=== PATIENT | male | born 1975 | race American Indian/Alaskan Native ===

== ENCOUNTER 2020-01-27 08:21 | Observation (INO) | payer MEDICAID ==
--- NOTE | 2020-01-27 09:06 | XRay Report ---
LEFT FOOT 3 VIEWS INDICATION: wound and pain to left foot. COMPARISON: None. IMPRESSION: There is been previous surgery involving the distal first and second metatarsals, correl ate with history. There is normal bone mineralization. No fracture, bone lesion, periostitis or bony destruction is identified. No significant joint pathology. Small plantar spur is noted. The soft tis sues are unremarkable. Signer Name: Kushal Morrison Jr, MD Signed: 01/27/2020 9:02 AM Workstation Name: [id number]
[2020-01-27 09:14] LABS: Hematocrit 38.3 % (35.5-45.6); Hemoglobin 12.1 gm/dl (11.8-15.2); Mean Corpuscular HGB Conc 32 % (32-34); Mean Corpuscular Volume 91 fl (84-94); Platelet Count 389 K/mm3 (140-440); Red Blood Count 4.23 M/mm3 (3.65-5.03); Red Cell Distribution Width 14.5 % (13.2-15.2)
[2020-01-27 09:34] LABS: Erythrocyte Sedimentation Rate 26 mm/Hr (0-20)
[2020-01-27 09:36] LABS: Alanine Aminotransferase 122 units/L (7-56); BUN/Creatinine Ratio 10; Blood Urea Nitrogen 12 mg/dL (9-20); Calcium 10.3 mg/dL (8.4-10.2); Hemolysis Index 4
[2020-01-27] MEDS ORDERED: SODIUM CHLORIDE 0.9% 1000 ML 1,000 ML IV ONE (10:57)
--- NOTE | 2020-01-27 11:01 | Emergency Department Report ---
HPI - General Chief Complaint: Extremity Injury, Lower Time Seen by Provider: 01/27/20 10:45 - HPI HPI: Room 23 The patient is a 44-year-old male present with a chief complaint of pain and bleeding from his left foot. The patient states she has had an ulceration under his left great toe for approximately 1 year and 1 between his small toe and fourth toe for approximately 6 months. The patient states that 1 time a inside sales specialist gave him a "cream" but it did not help. Patient states the pain has been worsening over the past 1 to 2 months. Patient states she noticed bleeding intermittently over the past month and occasionally pus coming from the wound. Patient denies history of fever. ED Past Medical Hx - Past Medical History Previous Medical History?: Yes Hx Hypertension: Yes Hx Diabetes: Yes Additional medical history: chronic back pain - Surgical History Past Surgical History?: Yes Additional Surgical History: left foot (patient states the bunion was removed and 1 of the bones in his foot had to be shaved but he is uncertain of the diagnosis) - Family History Family history: no significant - Social History Smoking Status: Never Smoker Substance Use Type: None (Denies illicit drug use), Alcohol (1-2 drinks daily) - Medications Home Medications: Home Medications Medication Instructions Recorded Confirmed Last Taken Type traMADoL [Ultram 50 MG tab] 50 mg PO Q6HR PRN #20 tablet 10/30/15 Unknown Rx ED Review of Systems ROS: Stated complaint: SORE ON FOOT/DIABETIC Other details as noted in HPI Constitutional: denies: fever Eyes: denies: eye pain Respiratory: no symptoms reported Cardiovascular: denies: chest pain Endocrine: no symptoms reported Gastrointestinal: denies: abdominal pain Musculoskeletal: myalgia Skin: lesions Neurological: denies: headache Physical Exam - Physical Exam Vital Signs: Vital Signs 01/27/20 08:25 Temperature 97.8 F Pulse Rate 120 H Respiratory 18 Rate Blood Pressure 156/89 O2 Sat by Pulse 98 Oximetry Physical Exam: GENERAL: The patient is well-developed well-nourished male lying on stretcher not appearing to be in acute distress. [] HEENT: Normocephalic. Atraumatic. Extraocular motions are intact. Patient has moist mucous membranes. NECK: Supple. Trachea midline CHEST/LUNGS: Clear to auscultation. There is no respiratory distress noted. HEART/CARDIOVASCULAR: Regular. There is no tachycardia. There is no gallop rub or murmur. ABDOMEN: Abdomen is soft, nontender. Patient has normal bowel sounds. There is no abdominal distention. SKIN: There is a deep fissure between the small and fourth toe of the left foot. No active drainage appreciated. Foot is tender in this and surrounding area. There is a fissure underneath the left great toe. There is no edema. There is no diaphoresis. NEURO: The patient is awake, alert, and oriented. The patient is cooperative. The patient has normal speech MUSCULOSKELETAL: here is no tenderness or deformity. There is no limitation range of motion. There is no evidence of acute injury. ED Course Vital Signs 01/27/20 08:25 Temperature 97.8 F Pulse Rate 120 H Respiratory 18 Rate Blood Pressure 156/89 O2 Sat by Pulse 98 Oximetry ED Medical Decision Making - Lab Data Result diagrams: 01/27/20 08:49 01/27/20 08:49 Laboratory Tests 01/27/20 01/27/20 01/27/20 08:41 08:49 08:49 WBC 6.4 RBC 4.23 Hgb 12.1 Hct 38.3 MCV 91 MCH 29 MCHC 32 RDW 14.5 Plt Count 389 ESR 26 Sodium 136 L Potassium 4.8 Chloride 96.8 L Carbon Dioxide 18 L Anion Gap 26 BUN 12 Creatinine 1.2 Estimated GFR > 60 BUN/Creatinine Ratio 10 Glucose 254 H POC Glucose 234 H Lactic Acid Calcium 10.3 H Total Bilirubin 0.30 AST 136 H ALT 122 H Alkaline Phosphatase 118 Total Protein 8.6 H Albumin 5.0 Albumin/Globulin Ratio 1.4 01/27/20 01/27/20 08:49 10:04 WBC RBC Hgb Hct MCV MCH MCHC RDW Plt Count ESR Sodium Potassium Chloride Carbon Dioxide Anion Gap BUN Creatinine Estimated GFR BUN/Creatinine Ratio Glucose POC Glucose Lactic Acid 4.70 H* 5.40 H* Calcium Total Bilirubin AST ALT Alkaline Phosphatase Total Protein Albumin Albumin/Globulin Ratio - Radiology Data Radiology results: report reviewed (Left foot x-ray), image reviewed (Left foot x-ray) interpreted by me: Left foot x-ray-no acute fracture seen. Findings [facility] [address] [place] [address] XRay Report Signed Patient: MEL PLEITEZ MR#: [id number] : 1975 Acct:[id number] Age/Sex: 44 / M ADM Date: 01/27/20 Loc: ED Attending Dr: Ordering Physician: MEGHAN BIRD Date of Service: 01/27/20 Procedure(s): XR foot 3+V LT Accession Number(s): [id number] cc: MEGHAN BIRD Fluoro Time In Minutes: LEFT FOOT 3 VIEWS INDICATION: wound and pain to left foot. COMPARISON: None. IMPRESSION: There is been previous surgery involving the distal first and second metatarsals, correlate with history. There is normal bone mineralization. No fracture, bone lesion, periostitis or bony destruction is identified. No significant joint pathology. Small plantar spur is noted. The soft tissues are unremarkable. Signer Name: Kushal Morrison Jr, MD Signed: 01/27/2020 9:02 AM Workstation Name: [id number] Transcribed By: TTR Dictated By: KUSHAL MORRISON JR, MD Electronically Authenticated By: KUSHAL MORRISON JR, MD Signed Date/Time: 01/27/20901 DD/ 0 TD/TT: - Differential Diagnosis Diabetic foot infection, Critical care attestation.: If time is entered above; I have spent that time in minutes in the direct care of this critically ill patient, excluding procedure time. ED Disposition Clinical Impression: Diabetic infection of left foot Disposition: OP ADMIT IP TO THIS HOSP Is pt being admited?: Yes Does the pt Need Aspirin: No Condition: Fair Instructions: Diabetes Mellitus Type 2 in Adults (ED) Referrals: PRIMARY CARE, [Primary Care Provider] - 3-5 Days Time of Disposition: 11:05 (Hospitalist paged)
[2020-01-27] MEDS ORDERED: PIPERACIL/TAZOBACTA 4.5/NS 100 4.5 GM/100 ML VIAL IV ONE (11:04)
[2020-01-27] MEDS ORDERED: MORPHINE 2 MG/1 ML INJ IV PRN (11:39)
[2020-01-27] MEDS ORDERED: ACETAMINOPHEN 325 MG TAB PO PRN (11:39)
[2020-01-27] MEDS ORDERED: IBUPROFEN 600 MG TAB PO PRN (11:39)
[2020-01-27] MEDS ORDERED: DEXTROSE 50% IN WATER (25GM) 50 ML SYRINGE IV PRN (11:39)
[2020-01-27] MEDS ORDERED: ONDANSETRON 4 MG/2 ML INJ IV PRN (11:39)
[2020-01-27] MEDS ORDERED: FLUCONAZOLE 200 MG 200 MG/100 ML BAG IV SCH (12:00)
[2020-01-27] MEDS ORDERED: amLODIPine 10 MG TAB PO SCH (12:00)
[2020-01-27] MEDS ORDERED: INSULIN LISPRO 100 UNIT/ML SUB-Q ONE (12:07)
[2020-01-27] MEDS: INSULIN LISPRO 100 UNIT/ML SUB-Q SCH ×3 (12:07→22:03)
[2020-01-27] MEDS ORDERED: amLODIPine 10 MG TAB ONE (13:32)
--- NOTE | 2020-01-27 14:45 | History and Physical Report ---
History of Present Illness Date of examination: 01/27/20 Date of admission: 01/27/20 11:11 Chief complaint: LEFT FOOT PAIN History of present illness: Patient is a 44-year-old male with past medical history of DM, HTN, HYPERLIPIDEMIA, Depression who presents to the ER with complaint of left foot pain. Per the patient he has an ulceration under the great toe and also in between the fourth and fifth toe which has been ongoing for about 1 month and 6- month respectively although when pressed he is reported that is been ongoing for about a year intermittently would bleed and sometimes it would turn red. He was seen by a second shift supervisor about 2 months ago and was given some cream but reported that it was not improving and is beginning to notice pain and occasional pus coming from the wound. He denies any fever nausea vomiting. He reports past surgical history in the left foot when he had a bunion removed and a bone shaved at that time. He does endorse to alcohol use 1-2 drinks every other day and denies any history of withdrawal symptoms. GENERAL: The patient is well-developed well-nourished male lying on stretcher not appearing to be in acute distress. [] HEENT: Normocephalic. Atraumatic. Extraocular motions are intact. Patient has moist mucous membranes. NECK: Supple. Trachea midline CHEST/LUNGS: Clear to auscultation. There is no respiratory distress noted. HEART/CARDIOVASCULAR: Regular. There is no tachycardia. There is no gallop rub or murmur. ABDOMEN: Abdomen is soft, nontender. Patient has normal bowel sounds. There is no abdominal distention. SKIN: There is a deep fissure between the small and fourth toe of the left foot. No active drainage appreciated. Foot is tender in this and surrounding area. There is a fissure underneath the left great toe. There is no edema. There is no diaphoresis. NEURO: The patient is awake, alert, and oriented. The patient is cooperative. The patient has normal speech MUSCULOSKELETAL: here is no tenderness or deformity. There is no limitation range of motion. There is no evidence of acute injury. Past History Past Medical History: diabetes, hypertension, hyperlipidemia, other (Depression) Past Surgical History: Other (Bunion surgery) Social history: alcohol abuse, full code Family history: no significant family history Medications and Allergies Allergies Allergy/AdvReac Type Severity Reaction Status Date / Time No Known Allergies Allergy Unverified 10/30/15 11:38 Home Medications Medication Instructions Recorded Confirmed Last Taken Type traMADoL [Ultram 50 MG tab] 50 mg PO Q6HR PRN #20 tablet 10/30/15 01/27/20 Unknown Rx Amitriptyline [Elavil] 50 mg PO QHS 01/27/20 01/27/20 Unknown History Ammonium Lactate [Lac-Hydrin 1 applicatio TP BID 01/27/20 01/27/20 Unknown History Lotion] Escitalopram Oxalate [Lexapro] 20 mg PO DAILY 01/27/20 01/27/20 Unknown History Fluticasone [Flonase] 50 mcg IH DAILY 01/27/20 01/27/20 Unknown History Gabapentin 400 mg PO TID 01/27/20 01/27/20 Unknown History Insulin NPH Hum/Reg Insulin Hm 40 unit SQ QAM 01/27/20 01/27/20 Unknown History [HumuLIN 70-30 Vial] Insulin NPH Hum/Reg Insulin Hm 50 unit SQ QHS 01/27/20 01/27/20 Unknown History [Humulin 70-30 Vial] Ketoconazole 2% [Nizoral] 15 gm TP DAILY 01/27/20 01/27/20 Unknown History Loratadine (Nf) 10 mg PO DAILY 01/27/20 01/27/20 Unknown History Meloxicam [Mobic] 15 mg PO DAILY 01/27/20 01/27/20 Unknown History Metformin HCl [metFORMIN] 1,000 mg PO BID 01/27/20 01/27/20 Unknown History Mirtazapine [Remeron 45mg TAB] 45 mg PO QHS 01/27/20 01/27/20 Unknown History Omeprazole 20 mg PO BID 01/27/20 01/27/20 Unknown History amLODIPine [Norvasc] 10 mg PO DAILY 01/27/20 01/27/20 Unknown History cloNIDine [Catapres] 0.2 mg PO BID 01/27/20 01/27/20 Unknown History lisinopriL [Zestril TAB] 40 mg PO QDAY 01/27/20 01/27/20 Unknown History risperiDONE [RisperDAL] 1 mg PO QHS 01/27/20 01/27/20 Unknown History risperiDONE [risperiDONE ODT] 0.5 mg PO QAM 01/27/20 01/27/20 Unknown History traMADoL [Ultram] 50 mg PO Q6HR PRN 01/27/20 01/27/20 Unknown History traZODone [Desyrel] 100 mg PO QHS 01/27/20 01/27/20 Unknown History Active Meds: Active Medications Acetaminophen (Tylenol) 650 mg PO Q4H PRN PRN Reason: Pain MILD(1-3)/Fever >100.5/ARIAS Amlodipine Besylate (Amlodipine) 10 mg PO QDAY [facility] Last Admin: 01/27/20 13:34 Dose: 10 mg Documented by: Cetirizine HCl (Cetirizine) 10 mg PO QDAY [facility] Clonidine HCl (Catapres) 0.2 mg PO Q12HR [facility] Dextrose (D50w (25gm) Syringe) 50 ml IV Q30MIN PRN; Protocol PRN Reason: Hypoglycemia Escitalopram Oxalate (Lexapro) 10 mg PO QDAY [facility] Fluconazole (Diflucan) 200 mg in 100 mls @ 100 mls/hr IV Q24HR [facility]; Protocol Cefazolin Sodium 2 gm/ Sodium (Chloride) 100 mls @ 200 mls/hr IV Q8HR [facility]; Protocol Ibuprofen (Ibuprofen) 600 mg PO Q6H PRN PRN Reason: Pain, Mild (1-3) Insulin Human Isoph/Insulin Regular (Humulin 70/30) 50 unit SUB-Q BIDDIAB [facility] Insulin Human Lispro (Humalog) 0 unit SUB-Q ACHS [facility]; Protocol Last Admin: 01/27/20 12:07 Dose: 8 unit Documented by: Meloxicam (Mobic) 7.5 mg PO QDAY [facility] Mirtazapine (Remeron) 45 mg PO QHS [facility] Morphine Sulfate (Morphine) 2 mg IV Q4H PRN PRN Reason: Pain, Moderate (4-6) Ondansetron HCl (Zofran) 4 mg IV Q8H PRN PRN Reason: Nausea And Vomiting Senna (Senokot) 8.6 mg PO Q12HR [facility] Sodium Chloride (Sodium Chloride Flush Syringe 10 Ml) 10 ml IV BID [facility] Sodium Chloride (Sodium Chloride Flush Syringe 10 Ml) 10 ml IV PRN PRN PRN Reason: LINE FLUSH Trazodone HCl (Desyrel) 150 mg PO QHS [facility] Review of Systems All systems: negative Integumentary: rash, foot/leg ulcers Exam - Physical Exam Narrative exam: VITAL SIGNS: Reviewed. GENERAL: The patient appears normally developed, Vital signs as documented. HEAD: No signs of head trauma. EYES: Pupils are equal. Extraocular motions intact. EARS: Hearing grossly intact. MOUTH: Oropharynx is normal. NECK: No adenopathy, no JVD. CHEST: Chest with clear breath sounds bilaterally. No wheezes, rales, or rhonchi. CARDIAC: Regular rate and rhythm. S1 and S2, without murmurs, gallops, or rubs. VASCULAR: No Edema. Peripheral pulses normal and equal in all extremities. ABDOMEN: Soft, non tender and non distended. No rebound or guarding, and no masses palpated. Bowel Sounds normal. MUSCULOSKELETAL: Good range of motion of all major joints. Extremities without clubbing, cyanosis or edema. NEUROLOGIC EXAM: Alert and oriented x 3 No focal sensory or strength deficits. Speech normal. Follows commands. PSYCHIATRIC: Mood normal. SKIN: Ulceration to the left hallux and also between the fourth and fifth metatarsal. Detail exam as documented in skin assessment - Constitutional Vitals: Temp Pulse Resp BP Pulse Ox 97.8 F 105 H 22 156/89 96 01/27/20 08:25 01/27/20 13:34 01/27/20 12:30 01/27/20 13:34 01/27/20 12:30 Results - Labs CBC & Chem 7: 01/27/20 08:49 01/27/20 08:49 Labs: Laboratory Last Values WBC 6.4 K/mm3 (4.5-11.0) 01/27/20 08:49 RBC 4.23 M/mm3 (3.65-5.03) 01/27/20 08:49 Hgb 12.1 gm/dl (11.8-15.2) 01/27/20 08:49 Hct 38.3 % (35.5-45.6) 01/27/20 08:49 MCV 91 fl (84-94) 01/27/20 08:49 MCH 29 pg (28-32) 01/27/20 08:49 MCHC 32 % (32-34) 01/27/20 08:49 RDW 14.5 % (13.2-15.2) 01/27/20 08:49 Plt Count 389 K/mm3 (140-440) 01/27/20 08:49 ESR 26 mm/Hr (0-20) 01/27/20 08:49 Sodium 136 mmol/L (137-145) L 01/27/20 08:49 Potassium 4.8 mmol/L (3.6-5.0) 01/27/20 08:49 Chloride 96.8 mmol/L (98-107) L 01/27/20 08:49 Carbon Dioxide 18 mmol/L (22-30) L 01/27/20 08:49 Anion Gap 26 mmol/L 01/27/20 08:49 BUN 12 mg/dL (9-20) 01/27/20 08:49 Creatinine 1.2 mg/dL (0.8-1.5) 01/27/20 08:49 Estimated GFR > 60 ml/min 01/27/20 08:49 BUN/Creatinine Ratio 10 % 01/27/20 08:49 Glucose 254 mg/dL (75-100) H 01/27/20 08:49 POC Glucose 338 (70-105) H 01/27/20 12:14 Lactic Acid 5.40 mmol/L (0.7-2.0) H* 01/27/20 10:04 Calcium 10.3 mg/dL (8.4-10.2) H 01/27/20 08:49 Total Bilirubin 0.30 mg/dL (0.1-1.2) 01/27/20 08:49 AST 136 units/L (5-40) H 01/27/20 08:49 ALT 122 units/L (7-56) H 01/27/20 08:49 Alkaline Phosphatase 118 units/L (35-129) 01/27/20 08:49 Total Protein 8.6 g/dL (6.3-8.2) H 01/27/20 08:49 Albumin 5.0 g/dL (3.9-5) 01/27/20 08:49 Albumin/Globulin Ratio 1.4 % 01/27/20 08:49 Microbiology: Microbiology 01/27/20 08:49 Peripheral/Venous Blood Culture - Preliminary Culture in Progress 01/27/20 08:49 Peripheral/Venous Blood Culture - Preliminary Culture in Progress Assessment and Plan Assessment and plan: Patient is a 44-year-old male with past medical history of DM, HTN, HYPERLIPIDEMIA, Depression who presents to the ER with complaint of left foot pain. Per the patient he has an ulceration under the great toe and also in between the fourth and fifth toe which has been ongoing for about 1 month and 6- month respectively although when pressed he is reported that is been ongoing for about a year intermittently would bleed and sometimes it would turn red. He was seen by a second shift supervisor about 2 months ago and was given some cream but reported that it was not improving and is beginning to notice pain and occasional pus coming from the wound. He denies any fever nausea vomiting. He reports past surgical history in the left foot when he had a bunion removed and a bone shaved at that time. He does endorse to alcohol use 1-2 drinks every other day and denies any history of withdrawal symptoms. Left foot x-ray: IMPRESSION: There is been previous surgery involving the distal first and second metatarsals, correlate with history. There is normal bone mineralization. No fracture, bone lesion, periostitis or bony destruction is identified. No significant joint pathology. Small plantar spur is noted. The sof t tissues are unremarkable. Left foot cellulitis Diabetic ulcer nonhealing Diabetes mellitus EtOH abuse Hypertension Depression Plan Admit to medicine Antibiotics IV Check blood cultures Start on empiric antifungal No clinical evidence of sepsis Podiatry consult Wound care consult Extensive counseling provided to the patient on need to quit EtOH use, 25 minutes counseling provided. CIWA protocol instituted Following wound care evaluation if patient remains afebrile with no leukocytosis will anticipate discharge in a.m. recommend outpatient follow-up with podiatry Advance Directives: Yes Plan of care discussed with patient/family: Yes
[2020-01-27] MEDS: INSULIN NPH/REGULAR 70/30 INJ SUB-Q SCH (17:33)
[2020-01-27] MEDS ORDERED: SENNOSIDES 8.6 MG TAB PO SCH (22:00)
[2020-01-27] MEDS ORDERED: cloNIDine 0.2 MG TAB PO SCH (22:00)
[2020-01-27] MEDS ORDERED: traZODone 50 MG TAB PO SCH (22:00)
[2020-01-27] MEDS ORDERED: MIRTAZAPINE 15 MG TAB PO SCH (22:00)
[2020-01-28 05:49] LABS: Basophils # (Auto) 0.1 K/mm3 (0.0-0.1); Basophils % (Auto) 0.9 % (0.0-1.8); Eosinophils # (Auto) 0.3 K/mm3 (0.0-0.4); Eosinophils % (Auto) 4.8 % (0.0-4.3); Hematocrit 38.1 % (35.5-45.6); Hemoglobin 12.4 gm/dl (11.8-15.2); Lymphocytes # (Auto) 1.6 K/mm3 (1.2-5.4); Lymphocytes % (Auto) 26.2 % (13.4-35.0); Mean Corpuscular HGB Conc 33 % (32-34); Mean Corpuscular Volume 89 fl (84-94); Monocytes # (Auto) 0.5 K/mm3 (0.0-0.8); Monocytes % (Auto) 8.3 % (0.0-7.3); Platelet Count 351 K/mm3 (140-440); Red Blood Count 4.27 M/mm3 (3.65-5.03); Red Cell Distribution Width 14.3 % (13.2-15.2)
[2020-01-28 06:05] LABS: BUN/Creatinine Ratio 10; Blood Urea Nitrogen 10 mg/dL (9-20); Calcium 9.7 mg/dL (8.4-10.2); Hemolysis Index 58
[2020-01-28] MEDS: INSULIN LISPRO 100 UNIT/ML SUB-Q SCH (08:33)
[2020-01-28] MEDS: INSULIN NPH/REGULAR 70/30 INJ SUB-Q SCH (08:33)
[2020-01-28 09:53] VITALS: BP 145/101
[2020-01-28] MEDS ORDERED: ESCITALOPRAM 10 MG TAB PO SCH (10:00)
[2020-01-28] MEDS ORDERED: CETIRIZINE 10 MG TAB PO SCH (10:00)
[2020-01-28] MEDS ORDERED: MELOXICAM 7.5 MG TAB PO SCH (10:00)
--- NOTE | 2020-01-28 19:14 | Discharge Summary ---
Providers - Providers Date of Admission: 01/27/20 11:11 Date of discharge: 01/28/20 Attending physician: LOGAN CARMONA 01/27/20 11:36 Consult to Wound/ET Nurse [CONS] Routine Reason For Exam: wound eval 01/27/20 11:39 Consult to Physician [CONS] Routine Comment: Consulting Provider: WINIFRED CLARK Physician Instructions: Reason For Exam: LEFT DIABETIC FOOT INFECTION 01/27/20 11:41 Consult to Dietitian/Nutrition [CONS] Routine Physician Instructions: Reason For Exam: Reason for Consult: Diet education Primary care physician: SLURRY TANK OPERATOR Hospitalization Reason for admission: Left foot pain/left foot cellulitis Condition: Serious Pertinent studies: Left foot x-ray: IMPRESSION: There is been previous surgery involving the distal first and second metatarsals, correlate with history. There is normal bone mineralization. No fracture, bone lesion, periostitis or bony destruction is identified. No significant joint pathology. Small plantar spur is noted. The soft tissues are unremarkable. Hospital course: Patient is a 44-year-old male with past medical history of DM, HTN, HYPERLIPIDEMIA, Depression who presents to the ER with complaint of left foot pain. Per the patient he has an ulceration under the great toe and also in between the fourth and fifth toe which has been ongoing for about 1 month and 6- month respectively although when pressed he is reported that is been ongoing for about a year intermittently would bleed and sometimes it would turn red. He was seen by a injection molding process technician about 2 months ago and was given some cream but reported that it was not improving and is beginning to notice pain and occasional pus coming from the wound. He denies any fever nausea vomiting. He reports past surgical history in the left foot when he had a bunion removed and a bone shaved at that time. He does endorse to alcohol use 1-2 drinks every other day and denies any history of withdrawal symptoms. Left foot x-ray: IMPRESSION: There is been previous surgery involving the distal first and second metatarsals, correlate with history. There is normal bone mineralization. No fracture, bone lesion, periostitis or bony destruction is identified. No significant joint pathology. Small plantar spur is noted. The soft tissues are unremarkable. Final diagnosis: Left foot cellulitis Diabetic ulcer nonhealing Diabetes mellitus EtOH abuse Hypertension Depression Plan Antibiotics IV Check blood cultures Start on empiric antifungal Podiatry consult Wound care consult Extensive counseling provided to the patient on need to quit EtOH use, 25 minutes counseling provided. CIWA protocol instituted Following wound care evaluation if patient remains afebrile with no leukocytosis will anticipate discharge in a.m. recommend outpatient follow-up with podiatry Advance Directives: Yes Plan of care discussed with patient/family: Yes Patient did not want to stay in the hospital, counseling done risks and consequences of leaving against medical advised without treatment Were explained to the patient by all the healthcare providers, patient verbalized understanding, continue to insist on leaving signed the paper Left AMA. Please refer to medical records for all the other details Disposition: [id number] LEFT AGAINST MED ADVICE Time spent for discharge: 32 min Core Measure Documentation - Palliative Care Palliative Care/ Comfort Measures: Not Applicable - Core Measures Any of the following diagnoses?: none Exam - Physical Exam Narrative exam: Patient left AMA - Constitutional Vitals: Temp Pulse Resp BP Pulse Ox 98.3 F 90 19 145/101 94 01/28/20 07:40 01/28/20 07:40 01/28/20 07:40 01/28/20 07:40 01/28/20 07:40 Plan Additional Instructions: Patient left AMA Follow up with: PRIMARY CARE, [Primary Care Provider] - 3-5 Days
== END 2020-01-28 09:35 | disposition left against medical advice (07) ==
LOC: ED 08:21 → 4A 11:11
PROVIDERS: ADMIT Internal Medicine; ATTEND Internal Medicine
DX: E11.621 Type 2 diabetes mellitus with foot ulcer (principal); L97.529 Non-pressure chronic ulcer of other part of left foot with unspecified severity; L03.032 Cellulitis of left toe; I10 Essential (primary) hypertension; F32.9 Major depressive disorder, single episode, unspecified; E78.5 Hyperlipidemia, unspecified; F10.10 Alcohol abuse, uncomplicated; G89.29 Other chronic pain; M54.9 Dorsalgia, unspecified; Z79.4 Long term (current) use of insulin; Z79.899 Other long term (current) drug therapy
CPT/HCPCS: 36415; 73630; 80048; 80053; 82140; 82962; 85025; 85027; 85652; 87040; 93005; 96365; 96366; 96367; 96368; 96372; 99285; G0378; J0690; J1450; J2543; J7030; J1815

== ENCOUNTER 2021-02-02 17:47 | Inpatient (IN) | payer MEDICAID ==
--- NOTE | 2021-02-02 19:09 | Emergency Department Report ---
HPI - General Chief Complaint: Altered Mental Status Time Seen by Provider: 02/02/21 18:45 - HPI HPI: This is a 45-year-old -Algerian male presents to the emergency department via EMS from home for evaluation regarding altered mental status. The patient is currently awake but only AAO x1 to person. EMS found his blood sugar to be 528. It appears that he has been out of his insulin for the past week. Patient was here about 1 week ago for a diabetic toe ulcer. He also has a history of hypertension and there is a listing of chronic back pain. The patient is currently a poor historian secondary to his current medical condition. He received some IV fluid in route with EMS. ED Past Medical Hx - Past Medical History Previous Medical History?: Yes Hx Hypertension: Yes Hx Diabetes: Yes Additional medical history: chronic back pain - Surgical History Past Surgical History?: Yes Additional Surgical History: left foot (patient states the bunion was removed and 1 of the bones in his foot had to be shaved but he is uncertain of the di agnosis) - Social History Smoking Status: Never Smoker - Medications Home Medications: Home Medications Medication Instructions Recorded Confirmed Last Taken Type traMADoL [Ultram 50 MG tab] 50 mg PO Q6HR PRN #20 tablet 10/30/15 01/27/20 Unknown Rx Amitriptyline [Elavil] 50 mg PO QHS 01/27/20 01/27/20 Unknown History Ammonium Lactate [Lac-Hydrin 1 applicatio TP BID 01/27/20 01/27/20 Unknown History Lotion] Escitalopram Oxalate [Lexapro] 20 mg PO DAILY 01/27/20 01/27/20 Unknown History Fluticasone [Flonase] 50 mcg IH DAILY 01/27/20 01/27/20 Unknown History Gabapentin 400 mg PO TID 01/27/20 01/27/20 Unknown History Insulin NPH Hum/Reg Insulin Hm 40 unit SQ QAM 01/27/20 01/27/20 Unknown History [HumuLIN 70-30 Vial] Insulin NPH Hum/Reg Insulin Hm 50 unit SQ QHS 01/27/20 01/27/20 Unknown History [Humulin 70-30 Vial] Ketoconazole 2% [Nizoral] 15 gm TP DAILY 01/27/20 01/27/20 Unknown History Loratadine (Nf) 10 mg PO DAILY 01/27/20 01/27/20 Unknown History Meloxicam [Mobic] 15 mg PO DAILY 01/27/20 01/27/20 Unknown History Metformin HCl [metFORMIN] 1,000 mg PO BID 01/27/20 01/27/20 Unknown History Mirtazapine [Remeron 45mg TAB] 45 mg PO QHS 01/27/20 01/27/20 Unknown History Omeprazole 20 mg PO BID 01/27/20 01/27/20 Unknown History amLODIPine [Norvasc] 10 mg PO DAILY 01/27/20 01/27/20 Unknown History cloNIDine [Catapres] 0.2 mg PO BID 01/27/20 01/27/20 Unknown History lisinopriL [Zestril TAB] 40 mg PO QDAY 01/27/20 01/27/20 Unknown History risperiDONE [RisperDAL] 1 mg PO QHS 01/27/20 01/27/20 Unknown History risperiDONE [risperiDONE ODT] 0.5 mg PO QAM 01/27/20 01/27/20 Unknown History traMADoL [Ultram] 50 mg PO Q6HR PRN 01/27/20 01/27/20 Unknown History traZODone [Desyrel] 100 mg PO QHS 01/27/20 01/27/20 Unknown History ED Review of Systems ROS: Stated complaint: HBS/AMS Other details as noted in HPI Comment: Unobtainable due to pts medical conditions Physical Exam - Physical Exam Vital Signs: Vital Signs 02/02/21 18:31 Pulse Rate 102 H Respiratory 42 H Rate Blood Pressure 142/98 [Right] O2 Sat by Pulse 100 Oximetry Physical Exam: GENERAL: The patient is well-developed well-nourished. HENT: Normocephalic. Atraumatic. Patient has moist mucous membranes. EYES: Extraocular motions are intact. NECK: Supple. Trachea is midline. CHEST/LUNGS: Clear to auscultation. There is tachypnea with some accessory muscle use. Kussmaul respirations. HEART/CARDIOVASCULAR: Regular. There is no tachycardia. There is no murmur. ABDOMEN: Abdomen is soft, nontender. Patient has normal bowel sounds. There is no abdominal distention. SKIN: Skin is warm and dry. NEURO: The patient is awake but confused. Follows some commands. Withdraws from painful stimuli. MUSCULOSKELETAL: There is no tenderness or deformity. There is no limitation range of motion. ED Course Vital Signs 02/02/21 18:31 Pulse Rate 102 H Respiratory 42 H Rate Blood Pressure 142/98 [Right] O2 Sat by Pulse 100 Oximetry ED Medical Decision Making - Lab Data Result diagrams: 02/02/21 19:06 02/02/21 20:06 Lab Results 02/02/21 02/02/21 02/02/21 Range/Units 19:06 19:06 19:06 WBC 11.2 H (4.5-11.0) K/mm3 RBC 4.00 (3.65-5.03) M/mm3 Hgb 12.2 (11.8-15.2) gm/dl Hct 38.4 (35.5-45.6) % MCV 96 H (84-94) fl MCH 31 (28-32) pg MCHC 32 (32-34) % RDW 16.3 H (13.2-15.2) % Plt Count 454 H (140-440) K/mm3 Lymph % (Auto) 5.6 L (13.4-35.0) % [place] % (Auto) 8.8 H (0.0-7.3) % Eos % (Auto) 0.0 (0.0-4.3) % Baso % (Auto) 0.7 (0.0-1.8) % Lymph # (Auto) 0.6 L (1.2-5.4) K/mm3 [place] # (Auto) 1.0 H (0.0-0.8) K/mm3 Eos # (Auto) 0.0 (0.0-0.4) K/mm3 Baso # (Auto) 0.1 (0.0-0.1) K/mm3 Seg Neutrophils % 84.9 H (40.0-70.0) % Seg Neutrophils # 9.5 H (1.8-7.7) K/mm3 VBG pH 7.097 L* (7.320-7.420) Sodium 126 L (137-145) mmol/L Potassium 4.8 (3.6-5.0) mmol/L Chloride 87.3 L (98-107) mmol/L Carbon Dioxide 4 L* (22-30) mmol/L Anion Gap 40 mmol/L BUN 45 H (9-20) mg/dL Creatinine 1.7 H (0.8-1.3) mg/dL Estimated GFR 53 ml/min BUN/Creatinine Ratio 26 % Glucose 531 H* (75-100) mg/dL Ketones Quantitative (Negative) Calcium 8.6 (8.4-10.2) mg/dL Phosphorus (2.5-4.5) mg/dL Magnesium (1.7-2.3) mg/dL Total Bilirubin 0.40 (0.1-1.2) mg/dL AST 25 (5-40) units/L ALT 23 (7-56) units/L Alkaline Phosphatase 137 H (35-129) units/L Ammonia (25-60) umol/L Troponin T (0.00-0.029) ng/mL Total Protein 9.2 H (6.3-8.2) g/dL Albumin 4.3 (3.9-5) g/dL Albumin/Globulin Ratio 0.9 % Plasma/Serum Alcohol (0-0.07) % 02/02/21 02/02/21 02/02/21 Range/Units 19:06 19:06 19:06 WBC (4.5-11.0) K/mm3 RBC (3.65-5.03) M/mm3 Hgb (11.8-15.2) gm/dl Hct (35.5-45.6) % MCV (84-94) fl MCH (28-32) pg MCHC (32-34) % RDW (13.2-15.2) % Plt Count (140-440) K/mm3 Lymph % (Auto) (13.4-35.0) % [place] % (Auto) (0.0-7.3) % Eos % (Auto) (0.0-4.3) % Baso % (Auto) (0.0-1.8) % Lymph # (Auto) (1.2-5.4) K/mm3 [place] # (Auto) (0.0-0.8) K/mm3 Eos # (Auto) (0.0-0.4) K/mm3 Baso # (Auto) (0.0-0.1) K/mm3 Seg Neutrophils % (40.0-70.0) % Seg Neutrophils # (1.8-7.7) K/mm3 VBG pH (7.320-7.420) Sodium (137-145) mmol/L Potassium (3.6-5.0) mmol/L Chloride (98-107) mmol/L Carbon Dioxide (22-30) mmol/L Anion Gap mmol/L BUN (9-20) mg/dL Creatinine (0.8-1.3) mg/dL Estimated GFR ml/min BUN/Creatinine Ratio % Glucose (75-100) mg/dL Ketones Quantitative Moderate (Negative) Calcium (8.4-10.2) mg/dL Phosphorus (2.5-4.5) mg/dL Magnesium (1.7-2.3) mg/dL Total Bilirubin (0.1-1.2) mg/dL AST (5-40) units/L ALT (7-56) units/L Alkaline Phosphatase (35-129) units/L Ammonia 97.0 H (25-60) umol/L Troponin T (0.00-0.029) ng/mL Total Protein (6.3-8.2) g/dL Albumin (3.9-5) g/dL Albumin/Globulin Ratio % Plasma/Serum Alcohol < 0.01 (0-0.07) % 02/02/21 02/02/21 02/02/21 Range/Units 19:16 20:06 20:06 WBC (4.5-11.0) K/mm3 RBC (3.65-5.03) M/mm3 Hgb (11.8-15.2) gm/dl Hct (35.5-45.6) % MCV (84-94) fl MCH (28-32) pg MCHC (32-34) % RDW (13.2-15.2) % Plt Count (140-440) K/mm3 Lymph % (Auto) (13.4-35.0) % [place] % (Auto) (0.0-7.3) % Eos % (Auto) (0.0-4.3) % Baso % (Auto) (0.0-1.8) % Lymph # (Auto) (1.2-5.4) K/mm3 [place] # (Auto) (0.0-0.8) K/mm3 Eos # (Auto) (0.0-0.4) K/mm3 Baso # (Auto) (0.0-0.1) K/mm3 Seg Neutrophils % (40.0-70.0) % Seg Neutrophils # (1.8-7.7) K/mm3 VBG pH (7.320-7.420) Sodium 127 L (137-145) mmol/L Potassium 4.7 (3.6-5.0) mmol/L Chloride 87.6 L (98-107) mmol/L Carbon Dioxide 3 L* (22-30) mmol/L Anion Gap 41 mmol/L BUN 45 H (9-20) mg/dL Creatinine 1.7 H (0.8-1.3) mg/dL Estimated GFR 53 ml/min BUN/Creatinine Ratio 26 % Glucose 499 H (75-100) mg/dL Ketones Quantitative (Negative) Calcium 8.9 (8.4-10.2) mg/dL Phosphorus 5.60 H (2.5-4.5) mg/dL Magnesium 2.80 H (1.7-2.3) mg/dL Total Bilirubin (0.1-1.2) mg/dL AST (5-40) units/L ALT (7-56) units/L Alkaline Phosphatase (35-129) units/L Ammonia (25-60) umol/L Troponin T < 0.010 (0.00-0.029) ng/mL Total Protein (6.3-8.2) g/dL Albumin (3.9-5) g/dL Albumin/Globulin Ratio % Plasma/Serum Alcohol (0-0.07) % - EKG Data -: EKG Interpreted by Sd EKG shows normal: sinus rhythm, axis, intervals (Prolonged QTC), QRS complexes, ST-T waves Rate: tachycardia ( 101 bpm) - EKG Data When compared to previous EKG there are: no significant change Interpretation: unchanged when compared t (01/28/20) - Radiology Data Radiology results: report reviewed CT HEAD WITHOUT CONTRAST INDICATION / CLINICAL INFORMATION: AMS. TECHNIQUE: All CT scans at this location are performed using CT dose reduction for ALARA by means of automated exposure control. COMPARISON: None available. FINDINGS: HEMORRHAGE: No evidence of intracranial hemorrhage or extra-axial fluid collection. EXTRA-AXIAL SPACES: Cortical sulci, sylvian fissures and basilar cisterns have an unremarkable appearance. VENTRICULAR SYSTEM: The third and lateral ventricles are of normal size and configuration. CEREBRAL PARENCHYMA: No areas of abnormal brain parenchymal attenuation are identified. There is no indication of recent infarction. MIDLINE SHIFT OR HERNIATION: There is no mass effect. CEREBELLUM / BRAINSTEM: Brainstem and cerebellum have an unremarkable appearance. MIDLINE STRUCTURES:No abnormalities of the pituitary gland or pineal region are identified. INTRACRANIAL VESSELS:No abnormalities are identified on this noncontrast head CT. ORBITS: visualized portions of the orbits have an unremarkable appearance. SOFT TISSUES of HEAD: No significant abnormality. CALVARIUM: Evaluation of bone windows reveals no abnormalities. PARANASAL SINUSES / MASTOID AIR CELLS: Visualized portions of the paranasal sinuses are free from inflammatory mucosal disease. Mastoid air cells are normally pneumatized. IMPRESSION: 1. Normal head CT without contrast. - Medical Decision Making This patient presents with altered mental status and shortness of breath. He is in diabetic ketoacidosis with a blood sugar greater than 500, and anion gap of 40, a bicarb of 4, and venous acidosis. The patient has been given IV fluid resuscitation and started on insulin drip. CT scan of the head without contrast does not show any hemorrhage, large vessel occlusion, or any other acute process. Patient will be admitted to the ICU and has been accepted for admission by the hospitalist, Dr. Sidhu. Critical Care Time: Yes Critical care time in (mins) excluding proc time.: 35 Critical care attestation.: If time is entered above; I have spent that time in minutes in the direct care of this critically ill patient, excluding procedure time. Critical care time was spent on this patient in doing his initial evaluation, multiple reevaluations, ordering and interpretation of labs and imaging, IV fluid resuscitation, IV insulin drip for his DKA. Critical Care Time: 35 minutes ED Disposition Clinical Impression: Metabolic encephalopathy, Metabolic acidosis DKA (diabetic ketoacidoses) Qualifiers: Diabetes mellitus type: type 1 Diabetes mellitus complication detail: without coma Qualified Code(s): E10.10 - Type 1 diabetes mellitus with ketoacidosis with out coma Disposition: 09 OP ADMIT IP TO THIS HOSP Is pt being admited?: Yes Condition: Serious Time of Disposition: 23:30
[2021-02-02 19:33] LABS: Basophils # (Auto) 0.1 K/mm3 (0.0-0.1); Basophils % (Auto) 0.7 % (0.0-1.8); Hematocrit 38.4 % (35.5-45.6); Hemoglobin 12.2 gm/dl (11.8-15.2); Lymphocytes # (Auto) 0.6 K/mm3 (1.2-5.4); Lymphocytes % (Auto) 5.6 % (13.4-35.0); Mean Corpuscular HGB Conc 32 % (32-34); Mean Corpuscular Volume 96 fl (84-94); Monocytes % (Auto) 8.8 % (0.0-7.3); Platelet Count 454 K/mm3 (140-440); Red Cell Distribution Width 16.3 % (13.2-15.2)
--- NOTE | 2021-02-02 19:49 | XRay Report ---
CHEST 1 VIEW 02/02/2021 6:38 PM INDICATION / CLINICAL INFORMATION: SOB. COMPARISON: 02/19/13 FINDINGS: SUPPORT DEVICES: None. HEART / MEDIASTINUM: No significant abnormality. LUNGS / PLEURA: No significant pulmonary or pleural abnormality. No pneumothorax. ADDITIONAL FINDINGS: No significant additional findings. IMPRESSION: 1. No acute findings. No change. Signer Name: Erlinda Self MD Signed: 02/02/2021 7:45 PM Workstation Name: [email or web address]
[2021-02-02 19:53] LABS: Albumin 4.3 g/dL (3.9-5); Calcium 8.6 mg/dL (8.4-10.2)
--- NOTE | 2021-02-02 19:58 | Cat Scan Report ---
CT HEAD WITHOUT CONTRAST INDICATION / CLINICAL INFORMATION: AMS. TECHNIQUE: All CT scans at this location are performed using CT dose reduction for ALARA by means of automated e xposure control. COMPARISON: None available. FINDINGS: HEMORRHAGE: No evidence of intracranial hemorrhage or extra-axial fluid collection. EXTRA-AXIAL SPACES: Cortical sulci, sylvian fissures and basilar cisterns have an unremarkable appear ance. VENTRICULAR SYSTEM: The third and lateral ventricles are of normal size and configuration. CEREBRAL PARENCHYMA: No areas of abnormal brain parenchymal attenuation are identified. There is no i ndication of recent infarction. MIDLINE SHIFT OR HERNIATION: There is no mass effect. CEREBELLUM / BRAINSTEM: Brainstem and cerebellum have an unremarkable appearance. MIDLINE STRUCTURES:No abnormalities of the pituitary gland or pineal region are identified. INTRACRANIAL VESSELS:No abnormalities are identified on this noncontrast head CT. ORBITS: visualized portions of the orbits have an unremarkable appearance. SOFT TISSUES of HEAD: No significant abnormality. CALVARIUM: Evaluation of bone windows reveals no abnormalities. PARANASAL SINUSES / MASTOID AIR CELLS: Visualized portions of the paranasal sinuses are free from inf lammatory mucosal disease. Mastoid air cells are normally pneumatized. IMPRESSION: 1. Normal head CT without contrast. Signer Name: Julio Arias MD Signed: 02/02/2021 7:54 PM Workstation Name: [email or web address]
[2021-02-02] MEDS ORDERED: SODIUM CHLORIDE 0.9% 1000 ML 1,000 ML IV ONE (20:04)
--- NOTE | 2021-02-02 20:06 | History and Physical Report ---
History of Present Illness Chief complaint: Confused History of present illness: 45 YO Male with HTN, DM, HLD, Depression, ETOH Dependence presents to ED for evaluation. Patient is confused with diminished cognition at the time of my evaluation and is unable to provide detailed history. Patient history provided by EMS staff as well as ED staff. Patient staff reports that patient was found to have confusion today as per family members. EMS was notified and upon arrival the patient was found to be in distress with an elevated blood glucose of 528. The patient was subsequently transported to [facility] for further care and evaluation of the aforementioned symptoms. The patient was seen and evaluated in the emergency department. All lab and image studies reviewed. The patient was found to have DKA, metabolic acidosis, DREW with ATN as well as metabolic encephalopathy. The patient was admitted to ICU and initiated on DKA protocol. No further history is obtainable. The patient has diminished cognition at this time my evaluation but has a positive gag reflex and is able to protect his airway without difficulty. No medication listed at time of admission for reconciliation. Prior admission on 01/27/2020 reviewed. Past History Past Medical History: diabetes, hypertension, hyperlipidemia, other (See HPI) Past Surgical History: Other (Left foot surgery) Social history: single. denies: smoking, alcohol abuse, prescription drug abuse Family history: diabetes, hypertension Medications and Allergies Allergies Allergy/AdvReac Type Severity Reaction Status Date / Time No Known Allergies Allergy Unverified 10/30/15 11:38 Home Medications Medication Instructions Recorded Confirmed Last Taken Type traMADoL [Ultram 50 MG tab] 50 mg PO Q6HR PRN #20 tablet 10/30/15 01/27/20 Unknown Rx Amitriptyline [Elavil] 50 mg PO QHS 01/27/20 01/27/20 Unknown History Ammonium Lactate [Lac-Hydrin 1 applicatio TP BID 01/27/20 01/27/20 Unknown History Lotion] Escitalopram Oxalate [Lexapro] 20 mg PO DAILY 01/27/20 01/27/20 Unknown History Fluticasone [Flonase] 50 mcg IH DAILY 01/27/20 01/27/20 Unknown History Gabapentin 400 mg PO TID 01/27/20 01/27/20 Unknown History Insulin NPH Hum/Reg Insulin Hm 40 unit SQ QAM 01/27/20 01/27/20 Unknown History [HumuLIN 70-30 Vial] Insulin NPH Hum/Reg Insulin Hm 50 unit SQ QHS 01/27/20 01/27/20 Unknown History [Humulin 70-30 Vial] Ketoconazole 2% [Nizoral] 15 gm TP DAILY 01/27/20 01/27/20 Unknown History Loratadine (Nf) 10 mg PO DAILY 01/27/20 01/27/20 Unknown History Meloxicam [Mobic] 15 mg PO DAILY 01/27/20 01/27/20 Unknown History Metformin HCl [metFORMIN] 1,000 mg PO BID 01/27/20 01/27/20 Unknown History Mirtazapine [Remeron 45mg TAB] 45 mg PO QHS 01/27/20 01/27/20 Unknown History Omeprazole 20 mg PO BID 01/27/20 01/27/20 Unknown History amLODIPine [Norvasc] 10 mg PO DAILY 01/27/20 01/27/20 Unknown History cloNIDine [Catapres] 0.2 mg PO BID 01/27/20 01/27/20 Unknown History lisinopriL [Zestril TAB] 40 mg PO QDAY 01/27/20 01/27/20 Unknown History risperiDONE [RisperDAL] 1 mg PO QHS 01/27/20 01/27/20 Unknown History risperiDONE [risperiDONE ODT] 0.5 mg PO QAM 01/27/20 01/27/20 Unknown History traMADoL [Ultram] 50 mg PO Q6HR PRN 01/27/20 01/27/20 Unknown History traZODone [Desyrel] 100 mg PO QHS 01/27/20 01/27/20 Unknown History Active Meds: Active Medications Insulin Human Regular 100 (units/ Sodium Chloride) 100 mls @ 1 mls/hr IV TITR KENNETH; Protocol Review of Systems ROS unobtainable: due to mental status Exam - Constitutional Vitals: Temp Pulse Resp BP Pulse Ox 102 H 42 H 142/98 100 02/02/21 18:31 02/02/21 18:31 02/02/21 18:31 02/02/21 18:31 General appearance: Present: mild distress - EENT Eyes: Present: PERRL ENT: hearing intact, clear oral mucosa, other (Dry oral mucosa) - Neck Neck: Present: supple, normal ROM - Respiratory Respiratory effort: normal Respiratory: bilateral: CTA - Cardiovascular Heart Sounds: Present: S1 & S2. Absent: rub, click - Extremities Extremities: pulses symmetrical, No edema Peripheral Pulses: within normal limits - Abdominal General gastrointestinal: Present: soft, non-tender, non-distended, normal bowel sounds Male genitourinary: Present: normal - Integumentary Integumentary: Present: clear, warm, dry - Musculoskeletal Musculoskeletal: generalized weakness - Psychiatric Psychiatric: no appropriate mood/affect, no intact judgment & insight, no memory intact - Neurologic Neurologic: CNII-XII intact, moves all extremities HEART Score - HEART Score Troponin: Troponin T < 0.010 ng/mL (0.00-0.029) 02/02/21 19:16 Results - Labs CBC & Chem 7: 02/02/21 19:06 02/02/21 19:06 Labs: Abnormal lab results 02/02/21 02/02/21 02/02/21 Range/Units 19:06 19:06 19:06 WBC 11.2 H (4.5-11.0) K/mm3 MCV 96 H (84-94) fl RDW 16.3 H (13.2-15.2) % Plt Count 454 H (140-440) K/mm3 Lymph % (Auto) 5.6 L (13.4-35.0) % [place] % (Auto) 8.8 H (0.0-7.3) % Lymph # (Auto) 0.6 L (1.2-5.4) K/mm3 [place] # (Auto) 1.0 H (0.0-0.8) K/mm3 Seg Neutrophils % 84.9 H (40.0-70.0) % Seg Neutrophils # 9.5 H (1.8-7.7) K/mm3 VBG pH 7.097 L* (7.320-7.420) Sodium 126 L (137-145) mmol/L Chloride 87.3 L (98-107) mmol/L Carbon Dioxide 4 L* (22-30) mmol/L BUN 45 H (9-20) mg/dL Creatinine 1.7 H (0.8-1.3) mg/dL Glucose 531 H* (75-100) mg/dL Alkaline Phosphatase 137 H (35-129) units/L Total Protein 9.2 H (6.3-8.2) g/dL Assessment and Plan - Patient Problems (1) DKA (diabetic ketoacidoses) Current Visit: Yes Status: Acute Qualifiers: Diabetes mellitus type: type 1 Plan to address problem: DKA protocol: Patient admitted to ICU and initiated on DKA protocol. Insulin drip, IV fluid resuscitation therapy, monitor urine output every shift, serial BMP, monitor anion gap, potassium repletion as per protocol. The high probability of a clinically significant, sudden or life threatening deterioration of the [neuro, endocrine, renal] system(s) required my full and direct attention, intervention and personal management. The aggregate critical care time was [65] minutes. This time is in addition to time spent performing r eported procedures but includes the following: [x] Data Review and interpretation [x] Patient assessment and monitoring of vital signs [x] Documentation [x] Medication orders and management (2) Metabolic acidosis Current Visit: Yes Status: Acute Plan to address problem: IV fluid resuscitation therapy, serial lactic acid level, supportive care. (3) Metabolic encephalopathy Current Visit: Yes Status: Acute Plan to address problem: CT head, neuro check, seizure precautions, supportive care. Treat DKA. (4) Alcohol dependence Current Visit: Yes Status: Acute Plan to address problem: Thiamine, folic acid, multivitamin, CIWA protocol, banana bag. (5) DVT prophylaxis Current Visit: Yes Status: Acute Plan to address problem: SCDs bilateral lower extremities while in bed, patient is ambulatory.
[2021-02-02 20:19] LABS: Bilirubin,Urine NEG (Negative); Blood,Urine MOD (Negative); Color,Urine Straw (Yellow); Mucus,Urine FEW /HPF; Urobilinogen,Urine < 2.0 mg/dL (<2.0); WBC,Urine < 1.0 /HPF (0.0-6.0)
[2021-02-02 20:28] LABS: Amphetamine Screen,Urine Negative; Benzodiazepines Screen,Urine Negative; Cannabinoid Screen,Urine Negative; Methadone Screen,Urine Negative; Opiate Screen,Urine Negative
[2021-02-02] MEDS ORDERED: THIAMINE 100 MG, FOLIC ACID 1 MG, MULTIPLE VITAMIN INJ, ADULT 10 ML in SODIUM CHLORIDE ... IV ONE (20:34)
[2021-02-02] MEDS ORDERED: MULTIVITAMINS ,THERAPEUTIC TAB PO ONE (20:35)
[2021-02-02] MEDS ORDERED: THIAMINE 100 MG TAB PO ONE (20:35)
[2021-02-02 20:39] LABS: Cocaine Screen,Urine Positive
[2021-02-02 20:44] LABS: Calcium 8.9 mg/dL (8.4-10.2)
[2021-02-02] MEDS: INSULIN REGULAR, HUMAN 100 UNITS in SODIUM CHLORIDE 0.9% 99 ML IV SCH (21:08)
[2021-02-02] MEDS ORDERED: NON-FORMULARY EACH (Mirtazapine [Remeron 45mg Tab] 45 MG Tab.Rapdis) PO SCH (22:00)
[2021-02-02] MEDS ORDERED: NON-FORMULARY EACH (Omeprazole [Omeprazole] 20 MG Capsule.Dr) PO SCH (22:00)
[2021-02-02] MEDS: cloNIDine 0.2 MG TAB PO SCH (22:48)
[2021-02-02] MEDS: PANTOPRAZOLE 20 MG TAB PO SCH (22:49)
[2021-02-02] MEDS: MIRTAZAPINE 15 MG TAB PO SCH (22:49)
[2021-02-02] MEDS: traZODone 100 MG TAB PO SCH (22:49)
[2021-02-02] MEDS: risperiDONE 1 MG TAB PO SCH (22:50)
[2021-02-02] MEDS: LORazepam 2 MG/ML VIAL IV PRN (22:57)
[2021-02-02 23:21] LABS: Calcium 9.1 mg/dL (8.4-10.2)
[2021-02-02] MEDS ORDERED: SODIUM BICARB 8.4% 50 MEQ/50 ML SYRINGE IV ONE (23:43)
[2021-02-02] MEDS: SODIUM CHLORIDE 0.9% 1000 ML 1,000 ML IV SCH (23:52)
[2021-02-03] MEDS: AMITRIPTYLINE 25 MG TAB PO SCH ×3 (00:24→23:08)
[2021-02-03] MEDS: AMMONIUM LACTATE 12% LOTION TP SCH ×3 (00:25→23:06)
[2021-02-03] MEDS: LORazepam 2 MG/ML VIAL IV PRN ×4 (00:41→16:11)
[2021-02-03 00:42] LABS: Calcium 8.8 mg/dL (8.4-10.2)
[2021-02-03] MEDS: SODIUM BICARBONATE 100 MEQ in WATER FOR INJECTION (PF) 1,000 ML IV SCH ×2 (01:26→14:08)
[2021-02-03] MEDS: D5W/0.45% NACL/KCL 20 MEQ 20 MEQ/1,000 ML BAG IV SCH ×3 (01:57→19:01)
[2021-02-03 05:35] LABS: BUN/Creatinine Ratio 31; Blood Urea Nitrogen 43 mg/dL (9-20); Calcium 8.4 mg/dL (8.4-10.2); Hemolysis Index 2
[2021-02-03] MEDS: GABAPENTIN 400 MG CAP PO SCH ×4 (08:39→22:56)
[2021-02-03] MEDS: FOLIC ACID 1 MG TAB PO SCH ×2 (09:36→10:42)
[2021-02-03] MEDS: CETIRIZINE 10 MG TAB PO SCH ×2 (09:36→10:39)
[2021-02-03] MEDS: ESCITALOPRAM 10 MG TAB PO SCH (09:36)
[2021-02-03] MEDS: amLODIPine 10 MG TAB PO SCH ×2 (09:36→10:40)
[2021-02-03] MEDS: cloNIDine 0.2 MG TAB PO SCH ×3 (09:36→22:56)
[2021-02-03] MEDS: PANTOPRAZOLE 20 MG TAB PO SCH ×3 (09:36→23:08)
[2021-02-03] MEDS: LISINOPRIL 40 MG TAB PO SCH ×2 (09:37→10:40)
[2021-02-03] MEDS: risperiDONE 0.25 MG TAB PO SCH ×2 (09:37→10:39)
[2021-02-03] MEDS ORDERED: NON-FORMULARY EACH (Escitalopram Oxalate [Lexapro] 20 MG Tablet) PO SCH (10:00)
[2021-02-03] MEDS ORDERED: NON-FORMULARY EACH (Loratadine (Nf) 10 MG Tablet) PO SCH (10:00)
[2021-02-03] MEDS ORDERED: RISPERIDONE 0.5 MG PO SCH (10:00)
[2021-02-03 13:48] LABS: BUN/Creatinine Ratio 25; Blood Urea Nitrogen 35 mg/dL (9-20); Calcium 8.6 mg/dL (8.4-10.2); Hemolysis Index 2
[2021-02-03] MEDS ORDERED: POTASSIUM CHLORIDE ER 20 MEQ TAB PO ONE (14:49)
--- NOTE | 2021-02-03 15:00 | Progress Note ---
Assessment and Plan Assessment and plan: 45 YO Male with HTN, DM, HLD, Depression, ETOH Dependence presents to ED for evaluation. Patient is confused with diminished cognition at the time of my evaluation and is unable to provide detailed history. Patient history provided by EMS staff as well as ED staff. Patient staff reports that patient was found to have confusion today as per family members. EMS was notified and upon arrival the patient was found to be in distress with an elevated blood glucose of 528. The patient was subsequently transported to [facility] for further care and evaluation of the aforementioned symptoms. The patient was seen and evaluated in the emergency department. The patient was found to have DKA, metabolic acidosis, DREW with ATN as well as metabolic encephalopathy. The patient was admitted to ICU and initiated on DKA protocol. No further history is obtainable. The patient has diminished cognition at this time my evaluation but has a positive gag reflex and is able to protect his airway without difficulty. No medication listed at time of admission for reconciliation. Prior admission on 01/27/2020 reviewed. 02/03: Gap is almost close, continue current management, continue management for ETOH Withdrawal. Updating family. (1) DKA (diabetic ketoacidoses) Current Visit: Yes Status: Acute Qualifiers: Diabetes mellitus type: type 1 Plan to address problem: DKA protocol: Patient admitted to ICU and initiated on DKA protocol. Insulin drip, IV fluid resuscitation therapy, monitor urine output every shift, serial BMP, monitor anion gap, potassium repletion as per protocol. (2) Metabolic acidosis Current Visit: Yes Status: Acute Plan to address problem: IV fluid resuscitation therapy, serial lactic acid level, supportive care. (3) Metabolic encephalopathy Current Visit: Yes Status: Acute Plan to address problem: CT head-negative, neuro check, seizure precautions, supportive care. Treat DKA. (4) Alcohol dependence with mild withdrawal Current Visit: Yes Status: Acute Plan to address problem: Thiamine, folic acid, multivitamin, CIWA protocol, banana bag. (5) Hypokalemia Replace (6) DVT prophylaxis Current Visit: Yes Status: Acute Plan to address problem: SCDs bilateral lower extremities while in bed, patient is ambulatory. History Interval history: Patient seen and examined sedated. Otherwise awakens off sedation. Hospitalist Physical - Physical exam Narrative exam: GENERAL: The patient is well-developed well-nourished. HENT: Normocephalic. Atraumatic. Patient has moist mucous membranes. EYES: Extraocular motions are intact. NECK: Supple. Trachea is midline. CHEST/LUNGS: Clear to auscultation. HEART/CARDIOVASCULAR: Regular. There is no tachycardia. There is no murmur. ABDOMEN: Abdomen is soft, nontender. Patient has normal bowel sounds. There is no abdominal distention. SKIN: Skin is warm and dry. NEURO: The patient is awake but confused. Follows some commands. MUSCULOSKELETAL: There is no tenderness or deformity. There is no limitation range of motion. - Constitutional Vitals: Temp Pulse Resp BP Pulse Ox 98.4 F 110 H 25 H 156/87 99 02/03/21 12:00 02/03/21 14:00 02/03/21 14:00 02/03/21 14:00 02/03/21 14:00 General appearance: Present: mild distress HEART Score - HEART Score Troponin: Troponin T < 0.010 ng/mL (0.00-0.029) 02/02/21 19:16 Results - Labs CBC & Chem 7: 02/02/21 19:06 02/03/21 13:15 Labs: Laboratory Last Values WBC 11.2 K/mm3 (4.5-11.0) H 02/02/21 19:06 RBC 4.00 M/mm3 (3.65-5.03) 02/02/21 19:06 Hgb 12.2 gm/dl (11.8-15.2) 02/02/21 19:06 Hct 38.4 % (35.5-45.6) 02/02/21 19:06 MCV 96 fl (84-94) H 02/02/21 19:06 MCH 31 pg (28-32) 02/02/21 19:06 MCHC 32 % (32-34) 02/02/21 19:06 RDW 16.3 % (13.2-15.2) H 02/02/21 19:06 Plt Count 454 K/mm3 (140-440) H 02/02/21 19:06 Lymph % (Auto) 5.6 % (13.4-35.0) L 02/02/21 19:06 [place] % (Auto) 8.8 % (0.0-7.3) H 02/02/21 19:06 Eos % (Auto) 0.0 % (0.0-4.3) 02/02/21 19:06 Baso % (Auto) 0.7 % (0.0-1.8) 02/02/21 19:06 Lymph # (Auto) 0.6 K/mm3 (1.2-5.4) L 02/02/21 19:06 [place] # (Auto) 1.0 K/mm3 (0.0-0.8) H 02/02/21 19:06 Eos # (Auto) 0.0 K/mm3 (0.0-0.4) 02/02/21 19:06 Baso # (Auto) 0.1 K/mm3 (0.0-0.1) 02/02/21 19:06 Seg Neutrophils % 84.9 % (40.0-70.0) H 02/02/21 19:06 Seg Neutrophils # 9.5 K/mm3 (1.8-7.7) H 02/02/21 19:06 VBG pH 7.097 (7.320-7.420) L* 02/02/21 19:06 Sodium 141 mmol/L (137-145) 02/03/21 13:15 Potassium 3.0 mmol/L (3.6-5.0) L 02/03/21 13:15 Chloride 106.4 mmol/L (98-107) 02/03/21 13:15 Carbon Dioxide 14 mmol/L (22-30) L 02/03/21 13:15 Anion Gap 24 mmol/L 02/03/21 13:15 BUN 35 mg/dL (9-20) H 02/03/21 13:15 Creatinine 1.4 mg/dL (0.8-1.3) H 02/03/21 13:15 Estimated GFR > 60 ml/min 02/03/21 13:15 BUN/Creatinine Ratio 25 % 02/03/21 13:15 Glucose 117 mg/dL (75-100) H 02/03/21 13:15 POC Glucose 168 mg/dL (70-105) H 02/03/21 06:44 Ketones Quantitative Moderate (Negative) 02/02/21 19:06 Calcium 8.6 mg/dL (8.4-10.2) 02/03/21 13:15 Phosphorus 5.60 mg/dL (2.5-4.5) H 02/02/21 20:06 Magnesium 2.80 mg/dL (1.7-2.3) H 02/02/21 20:06 Total Bilirubin 0.40 mg/dL (0.1-1.2) 02/02/21 19:06 AST 25 units/L (5-40) 02/02/21 19:06 ALT 23 units/L (7-56) 02/02/21 19:06 Alkaline Phosphatase 137 units/L (35-129) H 02/02/21 19:06 Ammonia 97.0 umol/L (25-60) H 02/02/21 19:06 Troponin T < 0.010 ng/mL (0.00-0.029) 02/02/21 19:16 Total Protein 9.2 g/dL (6.3-8.2) H 02/02/21 19:06 Albumin 4.3 g/dL (3.9-5) 02/02/21 19:06 Albumin/Globulin Ratio 0.9 % 02/02/21 19:06 Urine Color Straw (Yellow) 02/02/21 20:12 Urine Turbidity Clear (Clear) 02/02/21 20:12 Urine pH 5.0 (5.0-7.0) 02/02/21 20:12 Ur Specific [place] 1.017 (1.003-1.030) 02/02/21 20:12 Urine Protein 30 mg/dl mg/dL (Negative) 02/02/21 20:12 Urine Glucose (UA) >=500 mg/dL (Negative) 02/02/21 20:12 Urine Ketones 80 mg/dL (Negative) 02/02/21 20:12 Urine Blood Mod (Negative) 02/02/21 20:12 Urine Nitrite Neg (Negative) 02/02/21 20:12 Urine Bilirubin Neg (Negative) 02/02/21 20:12 Urine Urobilinogen < 2.0 mg/dL (<2.0) 02/02/21 20:12 Ur Leukocyte Esterase Neg (Negative) 02/02/21 20:12 Urine WBC (Auto) < 1.0 /HPF (0.0-6.0) 02/02/21 20:12 Urine RBC (Auto) 1.0 /HPF (0.0-6.0) 02/02/21 20:12 U Epithel Cells (Auto) < 1.0 /HPF (0-13.0) 02/02/21 20:12 Urine Mucus Few /HPF 02/02/21 20:12 Urine Opiates Screen Negative 02/02/21 20:12 Urine Methadone Screen Negative 02/02/21 20:12 Ur Barbiturates Screen Negative 02/02/21 20:12 Ur Phencyclidine Scrn Negative 02/02/21 20:12 Ur Amphetamines Screen Negative 02/02/21 20:12 U Benzodiazepines Scrn Negative 02/02/21 20:12 Urine Cocaine Screen Positive 02/02/21 20:12 U Marijuana (THC) Screen Negative 02/02/21 20:12 Drugs of Abuse Note Disclamer 02/02/21 20:12 Plasma/Serum Alcohol < 0.01 % (0-0.07) 02/02/21 19:06 Active Medications - Current Medications Current Medications: Generic Name Dose Route Start Last Admin Trade Name Freq PRN Reason Stop Dose Admin Amitriptyline HCl 50 mg 02/02/21 22:00 02/03/21 00:24 Amitriptyline 25 Mg Tab PO Not Given QHS KENNETH Amlodipine Besylate 10 mg 02/03/21 10:00 02/03/21 10:40 Amlodipine 10 Mg Tab PO 10 mg DAILY KENNETH Administration Cetirizine HCl 10 mg 02/03/21 10:00 02/03/21 10:39 Cetirizine 10 Mg Tab PO 10 mg DAILY KENNETH Administration Clonidine HCl 0.2 mg 02/02/21 22:00 02/03/21 10:41 Clonidine 0.2 Mg Tab PO 0.2 mg BID KENNETH Administration Escitalopram Oxalate 20 mg 02/03/21 10:00 02/03/21 09:36 Escitalopram 10 Mg Tab PO Not Given DAILY KENNETH Folic Acid 1 mg 02/03/21 10:00 02/03/21 10:42 Folic Acid 1 Mg Tab PO 1 mg QDAY KENNETH Administration Gabapentin 400 mg 02/03/21 08:00 02/03/21 14:09 Gabapentin 400 Mg Cap PO Not Given TID KENNETH Heparin Sodium (Porcine) 5,000 unit 02/03/21 22:00 Heparin 5,000 Unit/1 Ml Vial SUB-Q Q12HR [facility] Insulin Human Regular 100 100 mls @ 1 mls/hr 02/02/21 21:00 02/03/21 14:06 units/ Sodium Chloride IV 2 units/hr TITR KENNETH 2 mls/hr Titration Protocol 1 UNITS/HR Sodium Chloride 1,000 mls @ 150 mls/hr 02/02/21 20:15 02/03/21 01:57 Nacl 0.9% 1000 Ml IV 0 mls/hr DIRECT KENNETH Infusion Potassium Chloride/Dextrose/Sod Cl 20 meq in 1,000 mls @ 125 mls/hr 02/03/21 02:00 02/03/21 11:26 D5w/0.45% Nacl/Kcl 20 Meq IV 125 mls/hr DIRECT KENNETH Administration Potassium Chloride 10 meq in 100 mls @ 100 mls/hr 02/03/21 15:00 Kcl 10meq/100ml IV 02/03/21 17:59 Q1H KENNETH Lactic Acid 1 applic 02/02/21 22:00 02/03/21 10:38 Ammonium Lactate 12% Lotion TP 1 applic BID KENNETH Administration Lisinopril 40 mg 02/03/21 10:00 02/03/21 10:40 Lisinopril 40 Mg Tab PO 40 mg QDAY KENNETH Administration Lorazepam 2 mg 02/02/21 20:35 02/03/21 10:40 Lorazepam 2 Mg/Ml Vial IV 2 mg Q1HR PRN Administration CIWA-Ar 8-15 Mirtazapine 45 mg 02/02/21 22:00 02/02/21 22:49 Mirtazapine 15 Mg Tab PO 45 mg QHS KENNETH Administration Pantoprazole Sodium 20 mg 02/02/21 22:00 02/03/21 10:39 Pantoprazole 20 Mg Tab PO 20 mg BID KENNETH Administration Risperidone 1 mg 02/02/21 22:00 02/02/21 22:50 Risperidone 1 Mg Tab PO 1 mg QHS KENNETH Administration Risperidone 0.5 mg 02/03/21 10:00 02/03/21 10:39 Risperidone 0.25 Mg Tab PO 0.5 mg QAM KENNETH Administration Sodium Chloride 10 ml 02/02/21 22:00 02/03/21 09:37 Sodium Chloride 0.9% 10 Ml Flush Syringe IV 10 ml BID KENNETH Administration Sodium Chloride 10 ml 02/02/21 20:06 Sodium Chloride 0.9% 10 Ml Flush Syringe IV PRN PRN LINE FLUSH Trazodone HCl 100 mg 02/02/21 22:00 02/02/21 22:49 Trazodone 100 Mg Tab PO 100 mg QHS KENNETH Administration
[2021-02-03] MEDS: POTASSIUM CHLORIDE 10 MEQ 10 MEQ/100 ML BAG IV SCH ×3 (15:31→17:23)
--- NOTE | 2021-02-03 15:45 | Consultation ---
History of Present Illness Consult date: 02/03/21 Requesting physician: ISRA KENDRICK Reason for consult: other (DKA) History of present illness: PULMONARY/CCM CONSULT NOTE (Full dictation # [id number]) Please see dictated notes for full details Past History Past Medical History: diabetes, hypertension, hyperlipidemia, other (See HPI) Past Surgical History: Other (Left foot surgery) Social history: single. denies: smoking, alcohol abuse, prescription drug abuse Family history: diabetes, hypertension Medications and Allergies Allergies Allergy/AdvReac Type Severity Reaction Status Date / Time No Known Allergies Allergy Unverified 10/30/15 11:38 Home Medications Medication Instructions Recorded Confirmed Last Taken Type traMADoL [Ultram 50 MG tab] 50 mg PO Q6HR PRN #20 tablet 10/30/15 01/27/20 Unknown Rx Amitriptyline [Elavil] 50 mg PO QHS 01/27/20 01/27/20 Unknown History Ammonium Lactate [Lac-Hydrin 1 applicatio TP BID 01/27/20 01/27/20 Unknown History Lotion] Escitalopram Oxalate [Lexapro] 20 mg PO DAILY 01/27/20 01/27/20 Unknown History Fluticasone [Flonase] 50 mcg IH DAILY 01/27/20 01/27/20 Unknown History Gabapentin 400 mg PO TID 01/27/20 01/27/20 Unknown History Insulin NPH Hum/Reg Insulin Hm 40 unit SQ QAM 01/27/20 01/27/20 Unknown History [HumuLIN 70-30 Vial] Insulin NPH Hum/Reg Insulin Hm 50 unit SQ QHS 01/27/20 01/27/20 Unknown History [Humulin 70-30 Vial] Ketoconazole 2% [Nizoral] 15 gm TP DAILY 01/27/20 01/27/20 Unknown History Loratadine (Nf) 10 mg PO DAILY 01/27/20 01/27/20 Unknown History Meloxicam [Mobic] 15 mg PO DAILY 01/27/20 01/27/20 Unknown History Metformin HCl [metFORMIN] 1,000 mg PO BID 01/27/20 01/27/20 Unknown History Mirtazapine [Remeron 45mg TAB] 45 mg PO QHS 01/27/20 01/27/20 Unknown History Omeprazole 20 mg PO BID 01/27/20 01/27/20 Unknown History amLODIPine [Norvasc] 10 mg PO DAILY 01/27/20 01/27/20 Unknown History cloNIDine [Catapres] 0.2 mg PO BID 01/27/20 01/27/20 Unknown History lisinopriL [Zestril TAB] 40 mg PO QDAY 01/27/20 01/27/20 Unknown History risperiDONE [RisperDAL] 1 mg PO QHS 01/27/20 01/27/20 Unknown History risperiDONE [risperiDONE ODT] 0.5 mg PO QAM 01/27/20 01/27/20 Unknown History traMADoL [Ultram] 50 mg PO Q6HR PRN 01/27/20 01/27/20 Unknown History traZODone [Desyrel] 100 mg PO QHS 01/27/20 01/27/20 Unknown History Active Meds: Active Medications Amitriptyline HCl (Amitriptyline 25 Mg Tab) 50 mg PO QHS [facility] Last Admin: 02/03/21 00:24 Dose: Not Given Documented by: Amlodipine Besylate (Amlodipine 10 Mg Tab) 10 mg PO DAILY [facility] Last Admin: 02/03/21 10:40 Dose: 10 mg Documented by: Cetirizine HCl (Cetirizine 10 Mg Tab) 10 mg PO DAILY [facility] Last Admin: 02/03/21 10:39 Dose: 10 mg Documented by: Clonidine HCl (Clonidine 0.2 Mg Tab) 0.2 mg PO BID [facility] Last Admin: 02/03/21 10:41 Dose: 0.2 mg Documented by: Escitalopram Oxalate (Escitalopram 10 Mg Tab) 20 mg PO DAILY [facility] Last Admin: 02/03/21 09:36 Dose: Not Given Documented by: Folic Acid (Folic Acid 1 Mg Tab) 1 mg PO QDAY [facility] Last Admin: 02/03/21 10:42 Dose: 1 mg Documented by: Gabapentin (Gabapentin 400 Mg Cap) 400 mg PO TID [facility] Last Admin: 02/03/21 14:09 Dose: Not Given Documented by: Heparin Sodium (Porcine) (Heparin 5,000 Unit/1 Ml Vial) 5,000 unit SUB-Q Q12HR [facility] Insulin Human Regular 100 (units/ Sodium Chloride) 100 mls @ 1 mls/hr IV TITR [facility]; Protocol Last Titration: 02/03/21 15:31 Dose: 3 units/hr, 3 mls/hr Documented by: Sodium Chloride (Nacl 0.9% 1000 Ml) 1,000 mls @ 150 mls/hr IV DIRECT [facility] Last Infusion: 02/03/21 01:57 Dose: 0 mls/hr Documented by: Potassium Chloride/Dextrose/Sod Cl (D5w/0.45% Nacl/Kcl 20 Meq) 20 meq in 1,000 mls @ 125 mls/hr IV DIRECT [facility] Last Admin: 02/03/21 11:26 Dose: 125 mls/hr Documented by: Potassium Chloride (Kcl 10meq/100ml) 10 meq in 100 mls @ 100 mls/hr IV Q1H [facility] Stop: 02/03/21 18:59 Last Admin: 02/03/21 15:31 Dose: 100 mls/hr Documented by: Lactic Acid (Ammonium Lactate 12% Lotion) 1 applic TP BID [facility] Last Admin: 02/03/21 10:38 Dose: 1 applic Documented by: Lisinopril (Lisinopril 40 Mg Tab) 40 mg PO QDAY [facility] Last Admin: 02/03/21 10:40 Dose: 40 mg Documented by: Lorazepam (Lorazepam 2 Mg/Ml Vial) 2 mg IV Q1HR PRN PRN Reason: CIWA-Ar 8-15 Last Admin: 02/03/21 10:40 Dose: 2 mg Documented by: Mirtazapine (Mirtazapine 15 Mg Tab) 45 mg PO QHS [facility] Last Admin: 02/02/21 22:49 Dose: 45 mg Documented by: Pantoprazole Sodium (Pantoprazole 20 Mg Tab) 20 mg PO BID [facility] Last Admin: 02/03/21 10:39 Dose: 20 mg Documented by: Risperidone (Risperidone 1 Mg Tab) 1 mg PO QHS [facility] Last Admin: 02/02/21 22:50 Dose: 1 mg Documented by: Risperidone (Risperidone 0.25 Mg Tab) 0.5 mg PO QAM [facility] Last Admin: 02/03/21 10:39 Dose: 0.5 mg Documented by: Sodium Chloride (Sodium Chloride 0.9% 10 Ml Flush Syringe) 10 ml IV BID [facility] Last Admin: 02/03/21 09:37 Dose: 10 ml Documented by: Sodium Chloride (Sodium Chloride 0.9% 10 Ml Flush Syringe) 10 ml IV PRN PRN PRN Reason: LINE FLUSH Trazodone HCl (Trazodone 100 Mg Tab) 100 mg PO QHS KENNETH Last Admin: 02/02/21 22:49 Dose: 100 mg Documented by: Physical Examination Vital signs: Vital Signs Pulse Resp BP Pulse Ox 102 H 42 H 142/98 100 02/02/21 18:31 02/02/21 18:31 02/02/21 18:31 02/02/21 18:31 Results - Laboratory Findings CBC and BMP: 02/02/21 19:06 02/03/21 13:15 Abnormal lab findings: Abnormal Labs 02/02/21 02/02/21 02/02/21 19:06 19:06 19:06 WBC 11.2 H MCV 96 H RDW 16.3 H Plt Count 454 H Lymph % (Auto) 5.6 L [place] % (Auto) 8.8 H Lymph # (Auto) 0.6 L [place] # (Auto) 1.0 H Seg Neutrophils % 84.9 H Seg Neutrophils # 9.5 H VBG pH 7.097 L* Sodium 126 L Potassium Chloride 87.3 L Carbon Dioxide 4 L* BUN 45 H Creatinine 1.7 H Glucose 531 H* POC Glucose Phosphorus Magnesium Alkaline Phosphatase 137 H Ammonia Total Protein 9.2 H 02/02/21 02/02/21 02/02/21 19:06 20:06 20:06 WBC MCV RDW Plt Count Lymph % (Auto) [place] % (Auto) Lymph # (Auto) [place] # (Auto) Seg Neutrophils % Seg Neutrophils # VBG pH Sodium 127 L Potassium Chloride 87.6 L Carbon Dioxide 3 L* BUN 45 H Creatinine 1.7 H Glucose 499 H POC Glucose Phosphorus 5.60 H Magnesium 2.80 H Alkaline Phosphatase Ammonia 97.0 H Total Protein 02/02/21 02/02/21 02/02/21 22:27 22:45 23:31 WBC MCV RDW Plt Count Lymph % (Auto) [place] % (Auto) Lymph # (Auto) [place] # (Auto) Seg Neutrophils % Seg Neutrophils # VBG pH Sodium 134 L D Potassium Chloride 93.9 L Carbon Dioxide 3 L* BUN 47 H Creatinine 1.7 H Glucose 383 H POC Glucose 366 H 252 H Phosphorus Magnesium Alkaline Phosphatase Ammonia Total Protein 02/03/21 02/03/21 02/03/21 00:13 00:45 01:37 WBC MCV RDW Plt Count Lymph % (Auto) [place] % (Auto) Lymph # (Auto) [place] # (Auto) Seg Neutrophils % Seg Neutrophils # VBG pH Sodium Potassium Chloride 97.5 L Carbon Dioxide 7 L* BUN 47 H Creatinine 1.6 H Glucose 239 H POC Glucose 209 H 156 H Phosphorus Magnesium Alkaline Phosphatase Ammonia Total Protein 02/03/21 02/03/21 02/03/21 02:37 03:47 04:32 WBC MCV RDW Plt Count Lymph % (Auto) [place] % (Auto) Lymph # (Auto) [place] # (Auto) Seg Neutrophils % Seg Neutrophils # VBG pH Sodium Potassium 3.5 L Chloride Carbon Dioxide 9 L* BUN 43 H Creatinine 1.4 H Glucose 186 H POC Glucose 156 H 190 H Phosphorus Magnesium Alkaline Phosphatase Ammonia Total Protein 02/03/21 02/03/21 06:44 13:15 WBC MCV RDW Plt Count Lymph % (Auto) [place] % (Auto) Lymph # (Auto) [place] # (Auto) Seg Neutrophils % Seg Neutrophils # VBG pH Sodium Potassium 3.0 L Chloride Carbon Dioxide 14 L BUN 35 H Creatinine 1.4 H Glucose 117 H POC Glucose 168 H Phosphorus Magnesium Alkaline Phosphatase Ammonia Total Protein
[2021-02-03 21:46] LABS: BUN/Creatinine Ratio 22; Blood Urea Nitrogen 26 mg/dL (9-20); Hemolysis Index 6
[2021-02-03] MEDS: traZODone 100 MG TAB PO SCH ×2 (23:00→23:07)
[2021-02-03] MEDS: HEPARIN 5,000 UNIT/1 ML VIAL SUB-Q SCH (23:00)
[2021-02-03] MEDS: risperiDONE 1 MG TAB PO SCH (23:08)
[2021-02-03] MEDS: MIRTAZAPINE 15 MG TAB PO SCH (23:08)
[2021-02-04] MEDS: INSULIN REGULAR, HUMAN 100 UNITS in SODIUM CHLORIDE 0.9% 99 ML IV SCH ×2 (01:07→19:50)
[2021-02-04] MEDS: LORazepam 2 MG/ML VIAL IV PRN ×5 (01:19→09:04)
[2021-02-04] MEDS ORDERED: MIDAZOLAM 2 MG/2 ML INJ IV ONE (02:16)
[2021-02-04] MEDS ORDERED: MIDAZOLAM 2 MG/2 ML INJ IV PRN (02:20)
[2021-02-04] MEDS ORDERED: MIDAZOLAM 5 MG/5 ML INJ MDV IV ONE (02:25)
--- NOTE | 2021-02-04 02:49 | Consultation ---
DATE OF CONSULTATION: 02/03/2021 PULMONARY CRITICAL CARE CONSULTATION CONSULTING PHYSICIAN: Dr. Den Hummel. REASON FOR CONSULTATION: Diabetic ketoacidosis. CHIEF COMPLAINT AND HISTORY OF PRESENTING ILLNESS: The patient is a 45-year-old -[place] male with past medical history significant amongst other things for a diagnosis of diabetes, who was brought into the Emergency Room via EMS for altered mental status. The patient also reportedly has a history of alcohol abuse. Upon presentation in the Emergency Room, he was awake. He, however, was not fully oriented. Blood sugars were elevated. He apparently had been out of his insulin supply for about a week. He also was seen in the hospital about a week ago for a diabetic toe ulcer. In the Emergency Room, he was diagnosed with diabetic ketoacidosis and started on IV insulin drip and ICU admission was requested. When I stopped by to see him, the patient was somnolent and sedated. He was on alcohol withdrawal protocol and has been receiving medication to control agitation. He is unable to give me much of the history. I do not have any history of vomiting or overt aspiration. The patient has a reported history of chronic back pain, it is unclear if he was complaining of abdominal pain at presentation. The above is as much of the history of presentation as I have. PAST MEDICAL HISTORY: Again, diabetes, hypertension, chronic back pain, alcohol abuse. PAST SURGICAL HISTORY: He has had a left foot surgery, reportedly mentioned that a bunion was removed in one of the bones of his foot. MEDICATIONS: He was on at the time I stopped by to see him, according to the medication administration record included the following: Elavil 50 mg p.o. at bedtime, all p.o. meds and n.p.o. until he is off the DKA protocol, amlodipine 10 mg p.o. daily, cetirizine 10 mg p.o. daily, clonidine 0.2 mg p.o. b.i.d., Lexapro 20 mg p.o. daily, folic acid 1 mg p.o. daily, Neurontin 400 mg p.o. t.i.d., heparin 5000 units subQ q. 12 hours, insulin drip was going at 2 units per hour, lisinopril 40 mg p.o. daily. He was on a CIWA protocol as an alcohol withdrawal protocol with IV Ativan as needed, Protonix 20 mg p.o. b.i.d. He had been on a sodium bicarbonate drip, I believe running at 100 mL per hour. He is also on Risperdal 1 mg p.o. at bedtime and 0.5 mg p.o. q.a.m. as well as trazodone 100 mg p.o. at bedtime. ALLERGIES: No known drug allergies. DIET: Obese gentleman, acute weight loss or gain history is unknown. FAMILY AND SOCIAL HISTORY: Apparently lived in the community. Alcohol, tobacco or illicit drug use or abuse history unknown and unobtainable. REVIEW OF SYSTEMS: Unobtainable secondary to the patient's medical and mental condition. Since he has been here, no gross hematochezia or melena, no gross hematuria, no hematemesis, no hemoptysis, no witnessed seizures. Review of systems otherwise unobtainable or as in the body of history above. PHYSICAL EXAMINATION: VITAL SIGNS: On presentation, really since he has been afebrile, temperature at presentation was 97.6 degrees Fahrenheit with a pulse of 102, respiratory rate of 29, blood pressure was 142/98, O2 sats of 100%. Inspired oxygen concentration at that time was not recorded. When I saw him, O2 sats were 97% on 2 liters nasal cannula. GENERAL: He is a middle-aged obese gentleman, normocephalic, atraumatic, resting peacefully in bed with normal respiratory effort at rest. HEENT: Anicteric. No conjunctival erythema. Oropharynx appeared to be moist. No gross jugular venous distention, no thyromegaly. He does have a large neck circumference. Grossly, there were no palpable lymph nodes in the supraclavicular or submandibular lymph node chains. LUNGS: Auscultation of both lung fuentes were unremarkable. He had good bilateral air movement. No wheezing. HEART: Sounds 1 and 2 are heard at the time of my evaluation, regular rate and rhythm without overt rubs or murmurs. ABDOMEN: Soft, full, protuberant. Bowel sounds are positive, nontender. No palpable hepatosplenomegaly. EXTREMITIES: Without overt digital clubbing or cyanosis. No pedal edema. Pedal pulses are 2+ bilaterally. NEUROLOGIC: Pupils are equal, round, about 3 mm, reactive to light. Extraocular muscle movements could not be adequately assessed. He did have spontaneous movements to all extremities to stimuli, but he was sedated and not really following commands. SKIN: Normal turgor in the areas I examined without overt cellulitis or rash. Please see the wound care nurses' notes for full description of his skin. Also, of note, I do not see any surgical intervention to the digits of his legs. Mood and affect could not be assessed. He was sedated. LABORATORY DATA: From my review are as follows: Admission white cell count 11,200, hemoglobin 12.2, hematocrit 38.4 and platelet count of 454. No manual differential. Arterial blood gas showed a pH of 7.10. Serum sodium was 126, potassium 4.8, chloride 87, bicarbonate was 4, BUN 45, creatinine 1.7, glucose 531. He had moderate ketones. Ammonia level was elevated at 97. Urinalysis was negative for nitrites and leukocyte esterase. He was spilling glucose. Urine drug screen was positive for cocaine. Plasma alcohol level was within normal limits. Coronavirus PCR has come back negative. No blood cultures. Chest x-ray was done and unremarkable chest x-ray. He also had a CT scan of his head that showed no acute process. ASSESSMENT: 1. Diabetic ketoacidosis. 2. Acute toxic metabolic encephalopathy. 3. Acute kidney injury. 4. History of alcohol abuse. 5. Metabolic acidosis. 6. Leukocytosis. 7. Elevated serum ammonia level. PLAN: He will be continued on the DKA protocol. At this point, we will go ahead and stop the serum bicarbonate drip. The most recent chemistries show that his serum bicarbonate is up to 14, the anion gap is down to 24. I will continue with routine DKA protocol fluids without addition of sodium bicarbonate. He will remain n.p.o. until he is off the IV insulin. His gap is closed. Supplemental oxygen will be weaned to keep sats greater than or equal to about 90%. Aspiration precautions will be maintained. Fall precautions will be maintained. He is going to be started on folic acid and thiamine replacement empirically. He is appropriately on GI prophylaxis and DVT prophylaxis. No acute indication for empiric antibiotic coverage. Flu and pneumonia vaccination will be accessed as per protocol. Thank you very much for the consult. We will follow along and make further recommendations as picture progresses/becomes clearer. Once he is doing better, alcohol abuse and substance abuse counseling will be done. He is critically ill on life-sustaining interventions including the IV insulin therapy, at high risk of from endocrine, neurologic system decompensation as well as renal system decompensation. Hopefully, the acute kidney injury improves with volume rehydration. At this time, I spent about 35-40 minutes of critical care time without overlap and excluding any procedural time that may be necessary. TID: [id number] RECEIPT: [id number] DESTINY/LIAT
[2021-02-04] MEDS: D5W/0.45% NACL/KCL 20 MEQ 20 MEQ/1,000 ML BAG IV SCH ×3 (04:03→19:34)
[2021-02-04] MEDS: GABAPENTIN 400 MG CAP PO SCH ×3 (08:19→22:08)
[2021-02-04 09:04] LABS: BUN/Creatinine Ratio 20; Blood Urea Nitrogen 22 mg/dL (9-20); Hemolysis Index 21
[2021-02-04] MEDS: amLODIPine 10 MG TAB PO SCH (09:05)
[2021-02-04] MEDS: CETIRIZINE 10 MG TAB PO SCH (09:05)
[2021-02-04] MEDS: PANTOPRAZOLE 20 MG TAB PO SCH ×2 (09:05→22:09)
[2021-02-04] MEDS: risperiDONE 0.25 MG TAB PO SCH (09:06)
[2021-02-04] MEDS: LISINOPRIL 40 MG TAB PO SCH (09:06)
[2021-02-04] MEDS: AMMONIUM LACTATE 12% LOTION TP SCH ×2 (09:07→23:08)
[2021-02-04] MEDS: FOLIC ACID 1 MG TAB PO SCH (09:08)
[2021-02-04] MEDS: cloNIDine 0.2 MG TAB PO SCH ×2 (09:08→23:07)
[2021-02-04] MEDS: HEPARIN 5,000 UNIT/1 ML VIAL SUB-Q SCH ×2 (09:09→23:10)
[2021-02-04] MEDS: ESCITALOPRAM 10 MG TAB PO SCH (09:09)
[2021-02-04] MEDS: POTASSIUM CHLORIDE 10 MEQ 10 MEQ/100 ML BAG IV SCH ×6 (10:13→17:30)
--- NOTE | 2021-02-04 13:14 | Progress Note ---
Assessment and Plan Diabetic ketoacidosis. Acute toxic metabolic encephalopathy. Acute kidney injury. History of alcohol abuse. Metabolic acidosis. Leukocytosis. Elevated serum ammonia level - COVID test negative - continue supplemental oxygen to keep O2 sats > 90% - prn Bronchodilators (MIRTHA) with pulm hygiene per RT - continue CIWA protocol - continue IV insulin therapy per DKA protocol - volume resuscitation and follow electrolytes - continue to avoid nephrotoxins, renally dose all medications - continue mobility protocols to prevent pressure ulcers - PT/OT as tolerated - Wound care per RN/WCT - home oxygen evaluation at discharge - GI & VTE prophylaxis - Flu & pneumovax per protocol - prn analgesia per pain score - continue other care per attending / other consultants ... re-evaluate in am & prn I have spent ( >35 ) minutes with the patient w/ >50% of the time spent counseling and/or coordinating care for this patient. Counseling topics and/or how time was spent coordinating patient's care is outlined in the impression and plan above. Subjective Date of service: 02/04/21 Principal diagnosis: DKA; Ac. Encephalopathy; Alcohol abuse; Metabolic acidosis; hyperammonemia Interval history: Patient is seen today for: Diabetic ketoacidosis; Acute toxic metabolic encephalopathy; History of alcohol abuse; Metabolic acidosis; hyperammonemia Seen and examined at bedside; 24hour events reviewed; nursing and respiratory care staff consulted; no adverse overnight events reported to me; resting peacefully in bed; remains on IV insulin; sedated per CIWA protocol Objective Vital Signs - 12hr 02/04/21 02/04/21 02/04/21 02:00 02:30 03:00 Temperature Pulse Rate 142 H 138 H 134 H Pulse Rate [ From Monitor] Respiratory 22 43 H 21 Rate Blood Pressure 173/92 161/94 161/94 O2 Sat by Pulse 97 97 97 Oximetry 02/04/21 02/04/21 02/04/21 03:30 04:00 04:30 Temperature 98.3 F Pulse Rate 108 H 103 H 99 H Pulse Rate [ 105 H From Monitor] Respiratory 26 H 21 17 Rate Blood Pressure 173/80 101/59 114/69 O2 Sat by Pulse 98 97 97 Oximetry 02/04/21 02/04/21 02/04/21 05:00 05:30 06:00 Temperature Pulse Rate 107 H 133 H 123 H Pulse Rate [ From Monitor] Respiratory 20 23 19 Rate Blood Pressure 168/83 164/68 164/68 O2 Sat by Pulse 98 99 99 Oximetry 02/04/21 02/04/21 02/04/21 06:30 07:00 07:30 Temperature Pulse Rate 108 H 104 H 97 H Pulse Rate [ From Monitor] Respiratory 14 17 16 Rate Blood Pressure 165/80 100/51 103/57 O2 Sat by Pulse 97 96 96 Oximetry 02/04/21 02/04/21 02/04/21 07:36 08:00 08:30 Temperature 98.1 F Pulse Rate 82 113 H Pulse Rate [ 104 H From Monitor] Respiratory 18 15 Rate Blood Pressure 103/57 159/76 O2 Sat by Pulse 98 99 Oximetry 02/04/21 02/04/21 02/04/21 09:00 09:05 09:06 Temperature Pulse Rate 120 H 118 H 115 H Pulse Rate [ From Monitor] Respiratory 16 Rate Blood Pressure 155/108 155/108 155/108 O2 Sat by Pulse 99 Oximetry 02/04/21 02/04/21 02/04/21 09:08 09:30 10:00 Temperature Pulse Rate 129 H 123 H 99 H Pulse Rate [ From Monitor] Respiratory 22 18 Rate Blood Pressure 155/108 207/94 93/49 O2 Sat by Pulse 99 98 Oximetry 02/04/21 02/04/21 02/04/21 10:30 11:00 11:30 Temperature Pulse Rate 96 H 99 H 91 H Pulse Rate [ From Monitor] Respiratory 22 16 17 Rate Blood Pressure 95/59 144/85 108/63 O2 Sat by Pulse 98 99 98 Oximetry 02/04/21 02/04/21 02/04/21 12:00 12:27 12:30 Temperature 98.5 F Pulse Rate 90 85 Pulse Rate [ 90 From Monitor] Respiratory 16 15 Rate Blood Pressure 110/66 104/69 O2 Sat by Pulse 98 99 Oximetry Constitutional: no acute distress Eyes: non-icteric ENT: oropharynx moist Neck: supple, no lymphadenopathy, no JVD Effort: mildly labored Ascultation: Bilateral: rhonchi (scant) Percussion: Bilateral: not dull Cardiovascular: regular rate and rhythm Gastrointestinal: normoactive bowel sounds, soft, non-tender, non-distended Integumentary: rash Extremities: no cyanosis, no edema, pulses normal, no ischemia or petechiae Neurologic: non-focal exam (grossly), pupils equal and round, unable to assess Psychiatric: other (unable to assess re: AMS) CBC and BMP: 02/02/21 19:06 02/05/21 07:12 Abnormal lab findings: Abnormal Labs 02/02/21 02/02/21 02/02/21 19:06 19:06 19:06 WBC 11.2 H MCV 96 H RDW 16.3 H Plt Count 454 H Lymph % (Auto) 5.6 L [place] % (Auto) 8.8 H Lymph # (Auto) 0.6 L [place] # (Auto) 1.0 H Seg Neutrophils % 84.9 H Seg Neutrophils # 9.5 H VBG pH 7.097 L* Sodium 126 L Potassium Chloride 87.3 L Carbon Dioxide 4 L* BUN 45 H Creatinine 1.7 H Glucose 531 H* POC Glucose Phosphorus Magnesium Alkaline Phosphatase 137 H Ammonia Total Protein 9.2 H 02/02/21 02/02/21 02/02/21 19:06 20:06 20:06 WBC MCV RDW Plt Count Lymph % (Auto) [place] % (Auto) Lymph # (Auto) [place] # (Auto) Seg Neutrophils % Seg Neutrophils # VBG pH Sodium 127 L Potassium Chloride 87.6 L Carbon Dioxide 3 L* BUN 45 H Creatinine 1.7 H Glucose 499 H POC Glucose Phosphorus 5.60 H Magnesium 2.80 H Alkaline Phosphatase Ammonia 97.0 H Total Protein 02/02/21 02/02/21 02/02/21 22:27 22:45 23:31 WBC MCV RDW Plt Count Lymph % (Auto) [place] % (Auto) Lymph # (Auto) [place] # (Auto) Seg Neutrophils % Seg Neutrophils # VBG pH Sodium 134 L D Potassium Chloride 93.9 L Carbon Dioxide 3 L* BUN 47 H Creatinine 1.7 H Glucose 383 H POC Glucose 366 H 252 H Phosphorus Magnesium Alkaline Phosphatase Ammonia Total Protein 02/03/21 02/03/21 02/03/21 00:13 00:45 01:37 WBC MCV RDW Plt Count Lymph % (Auto) [place] % (Auto) Lymph # (Auto) [place] # (Auto) Seg Neutrophils % Seg Neutrophils # VBG pH Sodium Potassium Chloride 97.5 L Carbon Dioxide 7 L* BUN 47 H Creatinine 1.6 H Glucose 239 H POC Glucose 209 H 156 H Phosphorus Magnesium Alkaline Phosphatase Ammonia Total Protein 05/09/1402/03/21 02/03/21 02:37 03:47 04:32 WBC MCV RDW Plt Count Lymph % (Auto) [place] % (Auto) Lymph # (Auto) [place] # (Auto) Seg Neutrophils % Seg Neutrophils # VBG pH Sodium Potassium 3.5 L Chloride Carbon Dioxide 9 L* BUN 43 H Creatinine 1.4 H Glucose 186 H POC Glucose 156 H 190 H Phosphorus Magnesium Alkaline Phosphatase Ammonia Total Protein 02/03/21 02/03/21 02/03/21 06:44 09:34 10:01 WBC MCV RDW Plt Count Lymph % (Auto) [place] % (Auto) Lymph # (Auto) [place] # (Auto) Seg Neutrophils % Seg Neutrophils # VBG pH Sodium Potassium Chloride Carbon Dioxide BUN Creatinine Glucose POC Glucose 168 H 173 H 180 H Phosphorus Magnesium Alkaline Phosphatase Ammonia Total Protein 02/03/21 02/03/21 02/03/21 11:21 12:08 12:53 WBC MCV RDW Plt Count Lymph % (Auto) [place] % (Auto) Lymph # (Auto) [place] # (Auto) Seg Neutrophils % Seg Neutrophils # VBG pH Sodium Potassium Chloride Carbon Dioxide BUN Creatinine Glucose POC Glucose 183 H 153 H 116 H Phosphorus Magnesium Alkaline Phosphatase Ammonia Total Protein 02/03/21 02/03/21 02/03/21 13:15 14:05 15:18 WBC MCV RDW Plt Count Lymph % (Auto) [place] % (Auto) Lymph # (Auto) [place] # (Auto) Seg Neutrophils % Seg Neutrophils # VBG pH Sodium Potassium 3.0 L Chloride Carbon Dioxide 14 L BUN 35 H Creatinine 1.4 H Glucose 117 H POC Glucose 148 H 164 H Phosphorus Magnesium Alkaline Phosphatase Ammonia Total Protein 02/03/21 02/03/21 02/03/21 16:07 17:25 17:59 WBC MCV RDW Plt Count Lymph % (Auto) [place] % (Auto) Lymph # (Auto) [place] # (Auto) Seg Neutrophils % Seg Neutrophils # VBG pH Sodium Potassium Chloride Carbon Dioxide BUN Creatinine Glucose POC Glucose 184 H 146 H 119 H Phosphorus Magnesium Alkaline Phosphatase Ammonia Total Protein 02/03/21 02/03/21 02/03/21 18:58 19:51 20:56 WBC MCV RDW Plt Count Lymph % (Auto) [place] % (Auto) Lymph # (Auto) [place] # (Auto) Seg Neutrophils % Seg Neutrophils # VBG pH Sodium Potassium Chloride Carbon Dioxide BUN Creatinine Glucose POC Glucose 141 H 156 H 149 H Phosphorus Magnesium Alkaline Phosphatase Ammonia Total Protein 02/03/21 02/03/21 02/03/21 21:06 21:10 22:02 WBC MCV RDW Plt Count Lymph % (Auto) [place] % (Auto) Lymph # (Auto) [place] # (Auto) Seg Neutrophils % Seg Neutrophils # VBG pH Sodium Potassium 3.4 L Chloride Carbon Dioxide 14 L BUN 26 H Creatinine Glucose 147 H POC Glucose 153 H 166 H Phosphorus Magnesium Alkaline Phosphatase Ammonia Total Protein 02/03/21 02/03/21 02/04/21 23:11 23:57 00:13 WBC MCV RDW Plt Count Lymph % (Auto) [place] % (Auto) Lymph # (Auto) [place] # (Auto) Seg Neutrophils % Seg Neutrophils # VBG pH Sodium Potassium Chloride Carbon Dioxide BUN Creatinine Glucose POC Glucose 172 H 162 H 162 H Phosphorus Magnesium Alkaline Phosphatase Ammonia Total Protein 02/04/21 02/04/21 02/04/21 00:57 01:51 03:00 WBC MCV RDW Plt Count Lymph % (Auto) [place] % (Auto) Lymph # (Auto) [place] # (Auto) Seg Neutrophils % Seg Neutrophils # VBG pH Sodium Potassium Chloride Carbon Dioxide BUN Creatinine Glucose POC Glucose 151 H 146 H 161 H Phosphorus Magnesium Alkaline Phosphatase Ammonia Total Protein 02/04/21 02/04/21 02/04/21 03:57 04:37 04:52 WBC MCV RDW Plt Count Lymph % (Auto) [place] % (Auto) Lymph # (Auto) [place] # (Auto) Seg Neutrophils % Seg Neutrophils # VBG pH Sodium Potassium Chloride Carbon Dioxide BUN Creatinine Glucose POC Glucose 187 H 159 H Phosphorus Magnesium Alkaline Phosphatase Ammonia 61.0 H Total Protein 02/04/21 02/04/21 02/04/21 06:56 07:27 08:05 WBC MCV RDW Plt Count Lymph % (Auto) [place] % (Auto) Lymph # (Auto) [place] # (Auto) Seg Neutrophils % Seg Neutrophils # VBG pH Sodium Potassium Chloride Carbon Dioxide BUN Creatinine Glucose POC Glucose 132 H 134 H 132 H Phosphorus Magnesium Alkaline Phosphatase Ammonia Total Protein 02/04/21 02/04/21 02/04/21 08:34 08:57 10:15 WBC MCV RDW Plt Count Lymph % (Auto) [place] % (Auto) Lymph # (Auto) [place] # (Auto) Seg Neutrophils % Seg Neutrophils # VBG pH Sodium Potassium 3.2 L Chloride 109.1 H Carbon Dioxide 15 L BUN 22 H Creatinine Glucose 126 H POC Glucose 125 H 183 H Phosphorus Magnesium Alkaline Phosphatase Ammonia Total Protein 02/04/21 02/04/21 10:59 11:49 WBC MCV RDW Plt Count Lymph % (Auto) [place] % (Auto) Lymph # (Auto) [place] # (Auto) Seg Neutrophils % Seg Neutrophils # VBG pH Sodium Potassium Chloride Carbon Dioxide BUN Creatinine Glucose POC Glucose 204 H 168 H Phosphorus Magnesium Alkaline Phosphatase Ammonia Total Protein Allied health notes reviewed: nursing
[2021-02-04] MEDS ORDERED: SODIUM CHLORIDE 0.9% 1000 ML 1,000 ML IV ONE (14:39)
--- NOTE | 2021-02-04 14:41 | Progress Note ---
Assessment and Plan Assessment and plan: 45 YO Male with HTN, DM, HLD, Depression, ETOH Dependence presents to ED for evaluation. Patient is confused with diminished cognition at the time of my evaluation and is unable to provide detailed history. Patient history provided by EMS staff as well as ED staff. Patient staff reports that patient was found to have confusion today as per family members. EMS was notified and upon arrival the patient was found to be in distress with an elevated blood glucose of 528. The patient was subsequently transported to [facility] for further care and evaluation of the aforementioned symptoms. The patient was seen and evaluated in the emergency department. The patient was found to have DKA, metabolic acidosis, DREW with ATN as well as metabolic encephalopathy. The patient was admitted to ICU and initiated on DKA protocol. No further history is obtainable. The patient has diminished cognition at this time my evaluation but has a positive gag reflex and is able to protect his airway without difficulty. No medication listed at time of admission for reconciliation. Prior admission on 01/27/2020 reviewed. 02/03: Gap is almost close, continue current management, continue management for ETOH Withdrawal. Updating family. 02/04: Continue supportive care, will give a bolus of fluid, give additional po tassium supplementation, continue insulin drip hopefully closes soon. Aspiration precaution. (1) DKA (diabetic ketoacidoses) Current Visit: Yes Status: Acute Qualifiers: Diabetes mellitus type: type 1 Plan to address problem: DKA protocol: Patient admitted to ICU and initiated on DKA protocol. Insulin drip, IV fluid resuscitation therapy, monitor urine output every shift, serial BMP, monitor anion gap, potassium repletion as per protocol. (2) Metabolic acidosis Current Visit: Yes Status: Acute Plan to address problem: IV fluid resuscitation therapy, serial lactic acid level, supportive care. (3) Metabolic encephalopathy Current Visit: Yes Status: Acute Plan to address problem: CT head-negative, neuro check, seizure precautions, supportive care. Treat DKA. (4) Alcohol dependence with mild withdrawal Current Visit: Yes Status: Acute Plan to address problem: Thiamine, folic acid, multivitamin, CIWA protocol, banana bag. (5) Hypokalemia Replace (6) DVT prophylaxis Current Visit: Yes Status: Acute Plan to address problem: SCDs bilateral lower extremities while in bed, patient is ambulatory. The high probability of a clinically significant, sudden or life threatening deterioration of the [pulmonary] system(s) required my full and direct attention, intervention and personal management. The aggregate critical care time was [35] minutes. This time is in addition to time spent performing reported procedures but includes the following: [x] Data Review and interpretation [x] Patient assessment and monitoring of vital signs [x] Documentation [x] Medication orders and management History Interval history: Patient seen and examined, [place] but responisve to touch Hospitalist Physical - Physical exam Narrative exam: GENERAL: The patient is well-developed well-nourished. snooring HENT: Normocephalic. Atraumatic. Patient has moist mucous membranes. EYES: Extraocular motions are intact. NECK: Supple. Trachea is midline. CHEST/LUNGS: Clear to auscultation. HEART/CARDIOVASCULAR: Regular. There is no tachycardia. There is no murmur. ABDOMEN: Abdomen is soft, nontender. Patient has normal bowel sounds. There is no abdominal distention. SKIN: Skin is warm and dry. NEURO: The patient is awake but confused. Follows some commands. MUSCULOSKELETAL: There is no tenderness or deformity. There is no limitation range of motion. - Constitutional Vitals: Temp Pulse Resp BP Pulse Ox 98.5 F 84 15 111/70 99 02/04/21 12:27 02/04/21 14:00 02/04/21 14:00 02/04/21 14:00 02/04/21 14:00 General appearance: Present: mild distress HEART Score - HEART Score Troponin: Troponin T < 0.010 ng/mL (0.00-0.029) 02/02/21 19:16 Results - Labs CBC & Chem 7: 02/02/21 19:06 02/04/21 08:34 Labs: Laboratory Last Values WBC 11.2 K/mm3 (4.5-11.0) H 02/02/21 19:06 RBC 4.00 M/mm3 (3.65-5.03) 02/02/21 19:06 Hgb 12.2 gm/dl (11.8-15.2) 02/02/21 19:06 Hct 38.4 % (35.5-45.6) 02/02/21 19:06 MCV 96 fl (84-94) H 02/02/21 19:06 MCH 31 pg (28-32) 02/02/21 19:06 MCHC 32 % (32-34) 02/02/21 19:06 RDW 16.3 % (13.2-15.2) H 02/02/21 19:06 Plt Count 454 K/mm3 (140-440) H 02/02/21 19:06 Lymph % (Auto) 5.6 % (13.4-35.0) L 02/02/21 19:06 [place] % (Auto) 8.8 % (0.0-7.3) H 02/02/21 19:06 Eos % (Auto) 0.0 % (0.0-4.3) 02/02/21 19:06 Baso % (Auto) 0.7 % (0.0-1.8) 02/02/21 19:06 Lymph # (Auto) 0.6 K/mm3 (1.2-5.4) L 02/02/21 19:06 [place] # (Auto) 1.0 K/mm3 (0.0-0.8) H 02/02/21 19:06 Eos # (Auto) 0.0 K/mm3 (0.0-0.4) 02/02/21 19:06 Baso # (Auto) 0.1 K/mm3 (0.0-0.1) 02/02/21 19:06 Seg Neutrophils % 84.9 % (40.0-70.0) H 02/02/21 19:06 Seg Neutrophils # 9.5 K/mm3 (1.8-7.7) H 02/02/21 19:06 VBG pH 7.097 (7.320-7.420) L* 02/02/21 19:06 Sodium 143 mmol/L (137-145) 02/04/21 08:34 Potassium 3.2 mmol/L (3.6-5.0) L 02/04/21 08:34 Chloride 109.1 mmol/L (98-107) H 02/04/21 08:34 Carbon Dioxide 15 mmol/L (22-30) L 02/04/21 08:34 Anion Gap 22 mmol/L 02/04/21 08:34 BUN 22 mg/dL (9-20) H 02/04/21 08:34 Creatinine 1.1 mg/dL (0.8-1.3) 02/04/21 08:34 Estimated GFR > 60 ml/min 02/04/21 08:34 BUN/Creatinine Ratio 20 % 02/04/21 08:34 Glucose 126 mg/dL (75-100) H 02/04/21 08:34 POC Glucose 168 mg/dL (70-105) H 02/04/21 11:49 Ketones Quantitative Moderate (Negative) 02/02/21 19:06 Calcium 9.0 mg/dL (8.4-10.2) 02/04/21 08:34 Phosphorus 5.60 mg/dL (2.5-4.5) H 02/02/21 20:06 Magnesium 2.80 mg/dL (1.7-2.3) H 02/02/21 20:06 Total Bilirubin 0.40 mg/dL (0.1-1.2) 02/02/21 19:06 AST 25 units/L (5-40) 02/02/21 19:06 ALT 23 units/L (7-56) 02/02/21 19:06 Alkaline Phosphatase 137 units/L (35-129) H 02/02/21 19:06 Ammonia 61.0 umol/L (25-60) H 02/04/21 04:37 Troponin T < 0.010 ng/mL (0.00-0.029) 02/02/21 19:16 Total Protein 9.2 g/dL (6.3-8.2) H 02/02/21 19:06 Albumin 4.3 g/dL (3.9-5) 02/02/21 19:06 Albumin/Globulin Ratio 0.9 % 02/02/21 19:06 Urine Color Straw (Yellow) 02/02/21 20:12 Urine Turbidity Clear (Clear) 02/02/21 20:12 Urine pH 5.0 (5.0-7.0) 02/02/21 20:12 Ur Specific [place] 1.017 (1.003-1.030) 02/02/21 20:12 Urine Protein 30 mg/dl mg/dL (Negative) 02/02/21 20:12 Urine Glucose (UA) >=500 mg/dL (Negative) 02/02/21 20:12 Urine Ketones 80 mg/dL (Negative) 02/02/21 20:12 Urine Blood Mod (Negative) 02/02/21 20:12 Urine Nitrite Neg (Negative) 02/02/21 20:12 Urine Bilirubin Neg (Negative) 02/02/21 20:12 Urine Urobilinogen < 2.0 mg/dL (<2.0) 02/02/21 20:12 Ur Leukocyte Esterase Neg (Negative) 02/02/21 20:12 Urine WBC (Auto) < 1.0 /HPF (0.0-6.0) 02/02/21 20:12 Urine RBC (Auto) 1.0 /HPF (0.0-6.0) 02/02/21 20:12 U Epithel Cells (Auto) < 1.0 /HPF (0-13.0) 02/02/21 20:12 Urine Mucus Few /HPF 02/02/21 20:12 Urine Opiates Screen Negative 02/02/21 20:12 Urine Methadone Screen Negative 02/02/21 20:12 Ur Barbiturates Screen Negative 02/02/21 20:12 Ur Phencyclidine Scrn Negative 02/02/21 20:12 Ur Amphetamines Screen Negative 02/02/21 20:12 U Benzodiazepines Scrn Negative 02/02/21 20:12 Urine Cocaine Screen Positive 02/02/21 20:12 U Marijuana (THC) Screen Negative 02/02/21 20:12 Drugs of Abuse Note Disclamer 02/02/21 20:12 Plasma/Serum Alcohol < 0.01 % (0-0.07) 02/02/21 19:06 Coronavirus (PCR) Negative (Negative) 02/03/21 09:15 Olivo/IV: Voiding Method Condom Catheter Active Medications - Current Medications Current Medications: Generic Name Dose Route Start Last Admin Trade Name Freq PRN Reason Stop Dose Admin Amitriptyline HCl 50 mg 02/02/21 22:00 02/03/21 23:08 Amitriptyline 25 Mg Tab PO Not Given QHS KENNETH Amlodipine Besylate 10 mg 02/03/21 10:00 02/04/21 09:05 Amlodipine 10 Mg Tab PO 10 mg DAILY KENNETH Administration Cetirizine HCl 10 mg 02/03/21 10:00 02/04/21 09:05 Cetirizine 10 Mg Tab PO 10 mg DAILY KENNETH Administration Clonidine HCl 0.2 mg 02/02/21 22:00 02/04/21 09:08 Clonidine 0.2 Mg Tab PO 0.2 mg BID KENNETH Administration Escitalopram Oxalate 20 mg 02/03/21 10:00 02/04/21 09:09 Escitalopram 10 Mg Tab PO 20 mg DAILY KENNETH Administration Folic Acid 1 mg 02/03/21 10:00 02/04/21 09:08 Folic Acid 1 Mg Tab PO 1 mg QDAY KENNETH Administration Gabapentin 400 mg 02/03/21 08:00 02/04/21 14:03 Gabapentin 400 Mg Cap PO Not Given TID KENNETH Heparin Sodium (Porcine) 5,000 unit 02/03/21 22:00 02/04/21 09:09 Heparin 5,000 Unit/1 Ml Vial SUB-Q 5,000 unit Q12HR KENNETH Administration Insulin Human Regular 100 100 mls @ 1 mls/hr 02/02/21 21:00 02/04/21 13:48 units/ Sodium Chloride IV 3 units/hr TITR KENNETH 3 mls/hr Titration Protocol 1 UNITS/HR Sodium Chloride 1,000 mls @ 150 mls/hr 02/02/21 20:15 02/03/21 01:57 Nacl 0.9% 1000 Ml IV 0 mls/hr DIRECT KENNETH Infusion Potassium Chloride/Dextrose/Sod Cl 20 meq in 1,000 mls @ 125 mls/hr 02/03/21 02:00 02/04/21 11:03 D5w/0.45% Nacl/Kcl 20 Meq IV 125 mls/hr DIRECT KENNETH Administration Lactic Acid 1 applic 02/02/21 22:00 02/04/21 09:07 Ammonium Lactate 12% Lotion TP 1 applic BID KENNETH Administration Lisinopril 40 mg 02/03/21 10:00 02/04/21 09:06 Lisinopril 40 Mg Tab PO 40 mg QDAY KENNETH Administration Lorazepam 2 mg 02/02/21 20:35 02/04/21 09:04 Lorazepam 2 Mg/Ml Vial IV 2 mg Q1HR PRN Administration MARSHA-Shad 8-15 Midazolam HCl 2 mg 02/04/21 02:20 02/04/21 05:16 Midazolam 2 Mg/2 Ml Inj IV 02/04/21 23:59 2 mg Q2HR PRN Administration Agitation Mirtazapine 45 mg 02/02/21 22:00 02/03/21 23:08 Mirtazapine 15 Mg Tab PO Not Given QHS KENNETH Pantoprazole Sodium 20 mg 02/02/21 22:00 02/04/21 09:05 Pantoprazole 20 Mg Tab PO 20 mg BID KENNETH Administration Risperidone 1 mg 02/02/21 22:00 02/03/21 23:08 Risperidone 1 Mg Tab PO Not Given QHS KENNETH Risperidone 0.5 mg 02/03/21 10:00 02/04/21 09:06 Risperidone 0.25 Mg Tab PO 0.5 mg QAM KENNETH Administration Sodium Chloride 10 ml 02/02/21 22:00 02/04/21 09:09 Sodium Chloride 0.9% 10 Ml Flush Syringe IV 10 ml BID KENNETH Administration Sodium Chloride 10 ml 02/02/21 20:06 Sodium Chloride 0.9% 10 Ml Flush Syringe IV PRN PRN LINE FLUSH Trazodone HCl 100 mg 02/02/21 22:00 02/03/21 23:07 Trazodone 100 Mg Tab PO Not Given QHS KENNETH
[2021-02-04 15:08] LABS: BUN/Creatinine Ratio 20; Blood Urea Nitrogen 20 mg/dL (9-20); Calcium 8.6 mg/dL (8.4-10.2); Hemolysis Index 2
[2021-02-04] MEDS: MIRTAZAPINE 15 MG TAB PO SCH (22:08)
[2021-02-04] MEDS: risperiDONE 1 MG TAB PO SCH (22:09)
[2021-02-04] MEDS: AMITRIPTYLINE 25 MG TAB PO SCH (23:08)
[2021-02-04] MEDS: traZODone 100 MG TAB PO SCH (23:08)
[2021-02-04 23:23] LABS: BUN/Creatinine Ratio 18; Blood Urea Nitrogen 14 mg/dL (9-20); Calcium 8.6 mg/dL (8.4-10.2); Hemolysis Index 5
[2021-02-05] MEDS: LORazepam 2 MG/ML VIAL IV PRN (01:53)
[2021-02-05] MEDS: D5W/0.45% NACL/KCL 20 MEQ 20 MEQ/1,000 ML BAG IV SCH (03:24)
[2021-02-05 08:24] LABS: BUN/Creatinine Ratio 15; Blood Urea Nitrogen 12 mg/dL (9-20); Calcium 8.8 mg/dL (8.4-10.2); Hemolysis Index 14
[2021-02-05] MEDS: GABAPENTIN 400 MG CAP PO SCH ×3 (08:36→22:14)
[2021-02-05] MEDS: ESCITALOPRAM 10 MG TAB PO SCH (09:51)
[2021-02-05] MEDS: risperiDONE 0.25 MG TAB PO SCH (09:52)
[2021-02-05] MEDS: PANTOPRAZOLE 20 MG TAB PO SCH ×2 (09:52→22:15)
[2021-02-05] MEDS: amLODIPine 10 MG TAB PO SCH (09:52)
[2021-02-05] MEDS: CETIRIZINE 10 MG TAB PO SCH (09:53)
[2021-02-05] MEDS: AMMONIUM LACTATE 12% LOTION TP SCH ×2 (09:54→22:21)
[2021-02-05] MEDS: LISINOPRIL 40 MG TAB PO SCH (09:54)
[2021-02-05] MEDS: cloNIDine 0.2 MG TAB PO SCH ×2 (09:55→22:15)
[2021-02-05] MEDS: FOLIC ACID 1 MG TAB PO SCH (09:55)
[2021-02-05] MEDS: HEPARIN 5,000 UNIT/1 ML VIAL SUB-Q SCH ×2 (09:59→22:14)
[2021-02-05] MEDS ORDERED: POTASSIUM CHLORIDE ER 20 MEQ TAB PO NR (11:14)
[2021-02-05] MEDS ORDERED: INSULIN REGULAR, HUMAN 100 UNITS/1 ML SUB-Q NR (11:14)
[2021-02-05] MEDS ORDERED: POTASSIUM CHLORIDE ER 10 MEQ TAB PO ONE (11:16)
--- NOTE | 2021-02-05 11:19 | Progress Note ---
Assessment and Plan Assessment and plan: 45 YO Male with HTN, DM, HLD, Depression, ETOH Dependence presents to ED for evaluation. Patient is confused with diminished cognition at the time of my evaluation and is unable to provide detailed history. Patient history provided by EMS staff as well as ED staff. Patient staff reports that patient was found to have confusion today as per family members. EMS was notified and upon arrival the patient was found to be in distress with an elevated blood glucose of 528. The patient was subsequently transported to [facility] for further care and evaluation of the aforementioned symptoms. The patient was seen and evaluated in the emergency department. The patient was found to have DKA, metabolic acidosis, DREW with ATN as well as metabolic encephalopathy. The patient was admitted to ICU and initiated on DKA protocol. No further history is obtainable. The patient has diminished cognition at this time my evaluation but has a positive gag reflex and is able to protect his airway without difficulty. No medication listed at time of admission for reconciliation. Prior admission on 01/27/2020 reviewed. 02/03: Gap is almost close, continue current management, continue management for ETOH Withdrawal. Updating family. 02/04: Continue supportive care, will give a bolus of fluid, give additional po tassium supplementation, continue insulin drip hopefully closes soon. Aspiration precaution. 02/05: Gap closed, transition to insulin sliding scale and AM/PM dose, awaiting yakov woodruff. still drowsy but much improved compared to yesterday. Replace K. (1) DKA (diabetic ketoacidoses) Current Visit: Yes Status: Acute Qualifiers: Diabetes mellitus type: type 1 Plan to address problem: DKA protocol: Patient admitted to ICU and initiated on DKA protocol. Insulin drip, IV fluid resuscitation therapy, monitor urine output every shift, serial BMP, monitor anion gap, potassium repletion as per protocol. (2) Metabolic acidosis Current Visit: Yes Status: Acute Plan to address problem: IV fluid resuscitation therapy, serial lactic acid level, supportive care. (3) Metabolic encephalopathy Current Visit: Yes Status: Acute Plan to address problem: CT head-negative, neuro check, seizure precautions, supportive care. Treat DKA. (4) Alcohol dependence with mild withdrawal Current Visit: Yes Status: Acute Plan to address problem: Thiamine, folic acid, multivitamin, CIWA protocol, banana bag. (5) Hypokalemia Replace (6) Hyponatremia (7) DREW with ATN DVT prophylaxis Current Visit: Yes Status: Acute Plan to address problem: SCDs bilateral lower extremities while in bed, patient is ambulatory. History Interval history: Patient seen and examined, Snoring but responsive to touch Hospitalist Physical - Physical exam Narrative exam: GENERAL: The patient is well-developed well-nourished. snooring HENT: Normocephalic. Atraumatic. Patient has moist mucous membranes. EYES: Extraocular motions are intact. NECK: Supple. Trachea is midline. CHEST/LUNGS: Clear to auscultation. HEART/CARDIOVASCULAR: Regular. There is no tachycardia. There is no murmur. ABDOMEN: Abdomen is soft, nontender. Patient has normal bowel sounds. There is no abdominal distention. SKIN: Skin is warm and dry. NEURO: The patient is awake but confused. Follows some commands. MUSCULOSKELETAL: There is no tenderness or deformity. There is no limitation range of motion. - Constitutional Vitals: Temp Pulse Resp BP Pulse Ox 98.6 F 106 H 14 194/110 97 02/05/21 08:00 02/05/21 10:00 02/05/21 10:00 02/05/21 10:00 02/05/21 08:00 General appearance: Present: mild distress HEART Score - HEART Score Troponin: Troponin T < 0.010 ng/mL (0.00-0.029) 02/02/21 19:16 Results - Labs CBC & Chem 7: 02/02/21 19:06 02/05/21 07:12 Labs: Laboratory Last Values WBC 11.2 K/mm3 (4.5-11.0) H 02/02/21 19:06 RBC 4.00 M/mm3 (3.65-5.03) 02/02/21 19:06 Hgb 12.2 gm/dl (11.8-15.2) 02/02/21 19:06 Hct 38.4 % (35.5-45.6) 02/02/21 19:06 MCV 96 fl (84-94) H 02/02/21 19:06 MCH 31 pg (28-32) 02/02/21 19:06 MCHC 32 % (32-34) 02/02/21 19:06 RDW 16.3 % (13.2-15.2) H 02/02/21 19:06 Plt Count 454 K/mm3 (140-440) H 02/02/21 19:06 Lymph % (Auto) 5.6 % (13.4-35.0) L 02/02/21 19:06 [place] % (Auto) 8.8 % (0.0-7.3) H 02/02/21 19:06 Eos % (Auto) 0.0 % (0.0-4.3) 02/02/21 19:06 Baso % (Auto) 0.7 % (0.0-1.8) 02/02/21 19:06 Lymph # (Auto) 0.6 K/mm3 (1.2-5.4) L 02/02/21 19:06 [place] # (Auto) 1.0 K/mm3 (0.0-0.8) H 02/02/21 19:06 Eos # (Auto) 0.0 K/mm3 (0.0-0.4) 02/02/21 19:06 Baso # (Auto) 0.1 K/mm3 (0.0-0.1) 02/02/21 19:06 Seg Neutrophils % 84.9 % (40.0-70.0) H 02/02/21 19:06 Seg Neutrophils # 9.5 K/mm3 (1.8-7.7) H 02/02/21 19:06 VBG pH 7.097 (7.320-7.420) L* 02/02/21 19:06 Sodium 143 mmol/L (137-145) 02/05/21 07:12 Potassium 3.0 mmol/L (3.6-5.0) L 02/05/21 07:12 Chloride 108.6 mmol/L (98-107) H 02/05/21 07:12 Carbon Dioxide 21 mmol/L (22-30) L 02/05/21 07:12 Anion Gap 16 mmol/L 02/05/21 07:12 BUN 12 mg/dL (9-20) 02/05/21 07:12 Creatinine 0.8 mg/dL (0.8-1.3) 02/05/21 07:12 Estimated GFR > 60 ml/min 02/05/21 07:12 BUN/Creatinine Ratio 15 % 02/05/21 07:12 Glucose 118 mg/dL (75-100) H 02/05/21 07:12 POC Glucose 149 mg/dL (70-105) H 02/05/21 09:16 Ketones Quantitative Moderate (Negative) 02/02/21 19:06 Calcium 8.8 mg/dL (8.4-10.2) 02/05/21 07:12 Phosphorus 5.60 mg/dL (2.5-4.5) H 02/02/21 20:06 Magnesium 2.80 mg/dL (1.7-2.3) H 02/02/21 20:06 Total Bilirubin 0.40 mg/dL (0.1-1.2) 02/02/21 19:06 AST 25 units/L (5-40) 02/02/21 19:06 ALT 23 units/L (7-56) 02/02/21 19:06 Alkaline Phosphatase 137 units/L (35-129) H 02/02/21 19:06 Ammonia 61.0 umol/L (25-60) H 02/04/21 04:37 Troponin T < 0.010 ng/mL (0.00-0.029) 02/02/21 19:16 Total Protein 9.2 g/dL (6.3-8.2) H 02/02/21 19:06 Albumin 4.3 g/dL (3.9-5) 02/02/21 19:06 Albumin/Globulin Ratio 0.9 % 02/02/21 19:06 Procalcitonin 0.26 ng/mL (<0.15) 02/03/21 21:10 Urine Color Straw (Yellow) 02/02/21 20:12 Urine Turbidity Clear (Clear) 02/02/21 20:12 Urine pH 5.0 (5.0-7.0) 02/02/21 20:12 Ur Specific [place] 1.017 (1.003-1.030) 02/02/21 20:12 Urine Protein 30 mg/dl mg/dL (Negative) 02/02/21 20:12 Urine Glucose (UA) >=500 mg/dL (Negative) 02/02/21 20:12 Urine Ketones 80 mg/dL (Negative) 02/02/21 20:12 Urine Blood Mod (Negative) 02/02/21 20:12 Urine Nitrite Neg (Negative) 02/02/21 20:12 Urine Bilirubin Neg (Negative) 02/02/21 20:12 Urine Urobilinogen < 2.0 mg/dL (<2.0) 02/02/21 20:12 Ur Leukocyte Esterase Neg (Negative) 02/02/21 20:12 Urine WBC (Auto) < 1.0 /HPF (0.0-6.0) 02/02/21 20:12 Urine RBC (Auto) 1.0 /HPF (0.0-6.0) 02/02/21 20:12 U Epithel Cells (Auto) < 1.0 /HPF (0-13.0) 02/02/21 20:12 Urine Mucus Few /HPF 02/02/21 20:12 Urine Opiates Screen Negative 02/02/21 20:12 Urine Methadone Screen Negative 02/02/21 20:12 Ur Barbiturates Screen Negative 02/02/21 20:12 Ur Phencyclidine Scrn Negative 02/02/21 20:12 Ur Amphetamines Screen Negative 02/02/21 20:12 U Benzodiazepines Scrn Negative 02/02/21 20:12 Urine Cocaine Screen Positive 02/02/21 20:12 U Marijuana (THC) Screen Negative 02/02/21 20:12 Drugs of Abuse Note Disclamer 02/02/21 20:12 Plasma/Serum Alcohol < 0.01 % (0-0.07) 02/02/21 19:06 Coronavirus (PCR) Negative (Negative) 02/03/21 09:15 Olivo/IV: Voiding Method Condom Catheter Active Medications - Current Medications Current Medications: Generic Name Dose Route Start Last Admin Trade Name Freq PRN Reason Stop Dose Admin Amitriptyline HCl 50 mg 02/02/21 22:00 02/04/21 23:08 Amitriptyline 25 Mg Tab PO Not Given QHS KENNETH Amlodipine Besylate 10 mg 02/03/21 10:00 02/05/21 09:52 Amlodipine 10 Mg Tab PO 10 mg DAILY KENNETH Administration Cetirizine HCl 10 mg 02/03/21 10:00 02/05/21 09:53 Cetirizine 10 Mg Tab PO 10 mg DAILY KENNETH Administration Clonidine HCl 0.2 mg 02/02/21 22:00 02/05/21 09:55 Clonidine 0.2 Mg Tab PO 0.2 mg BID KENNETH Administration Dextrose 50 ml 02/05/21 11:14 Dextrose 50% In Water (25gm) 50 Ml Syringe IV Q30MIN PRN Hypoglycemia Protocol Escitalopram Oxalate 20 mg 02/03/21 10:00 02/05/21 09:51 Escitalopram 10 Mg Tab PO 20 mg DAILY KENNETH Administration Fluticasone Propionate 50 mcg 02/06/21 10:00 Fluticasone Propionate Nasal [place] 16 Gm NS DAILY KENNETH Folic Acid 1 mg 02/03/21 10:00 02/05/21 09:55 Folic Acid 1 Mg Tab PO 1 mg QDAY KENNETH Administration Gabapentin 400 mg 02/03/21 08:00 02/05/21 08:36 Gabapentin 400 Mg Cap PO 400 mg TID KENNETH Administration Heparin Sodium (Porcine) 5,000 unit 02/03/21 22:00 02/05/21 09:59 Heparin 5,000 Unit/1 Ml Vial SUB-Q 5,000 unit Q12HR KENNETH Administration Sodium Chloride 1,000 mls @ 150 mls/hr 02/02/21 20:15 02/03/21 01:57 Nacl 0.9% 1000 Ml IV 0 mls/hr DIRECT KENNETH Infusion Potassium Chloride 10 meq in 100 mls @ 100 mls/hr 02/05/21 12:00 Kcl 10meq/100ml IV 02/05/21 13:59 Q1H KENNETH Insulin Human Isoph/Insulin Regular 40 unit 02/06/21 08:00 Insulin Nph/Regular 70/30 Inj SUB-Q QAMDIAB KENNETH Insulin Human Isoph/Insulin Regular 50 unit 02/05/21 22:00 Insulin Nph/Regular 70/30 Inj SUB-Q QHS KENNETH Insulin Human Lispro 0 unit 02/05/21 11:30 Insulin Lispro 100 Unit/Ml SUB-Q ACHS KENNETH Protocol Insulin Human Regular 10 units 02/05/21 11:14 Insulin Regular, Human 100 Units/1 Ml SUB-Q 02/05/21 11:15 ONCE ONE Lactic Acid 1 applic 02/02/21 22:00 02/05/21 09:54 Ammonium Lactate 12% Lotion TP 1 applic BID KENNETH Administration Lisinopril 40 mg 02/03/21 10:00 02/05/21 09:54 Lisinopril 40 Mg Tab PO 40 mg QDAY KENNETH Administration Lorazepam 2 mg 02/02/21 20:35 02/05/21 01:53 Lorazepam 2 Mg/Ml Vial IV 2 mg Q1HR PRN Administration CIWA-Shad 8-15 Mirtazapine 45 mg 02/02/21 22:00 02/04/21 22:08 Mirtazapine 15 Mg Tab PO Not Given QHS KENNETH Pantoprazole Sodium 20 mg 02/02/21 22:00 02/05/21 09:52 Pantoprazole 20 Mg Tab PO 20 mg BID KENNETH Administration Potassium Chloride 20 meq 02/05/21 11:14 Potassium Chloride Er 20 Meq Tab PO 02/05/21 11:15 ONCE ONE Potassium Chloride 30 meq 02/05/21 11:16 Potassium Chloride Er 10 Meq Tab PO 02/05/21 11:17 ONCE ONE Risperidone 1 mg 02/02/21 22:00 02/04/21 22:09 Risperidone 1 Mg Tab PO Not Given QHS KENNETH Risperidone 0.5 mg 02/03/21 10:00 02/05/21 09:52 Risperidone 0.25 Mg Tab PO 0.5 mg QAM KENNETH Administration Sodium Chloride 10 ml 02/02/21 22:00 02/05/21 09:59 Sodium Chloride 0.9% 10 Ml Flush Syringe IV 10 ml BID KENNETH Administration Sodium Chloride 10 ml 02/02/21 20:06 Sodium Chloride 0.9% 10 Ml Flush Syringe IV PRN PRN LINE FLUSH Trazodone HCl 100 mg 02/02/21 22:00 02/04/21 23:08 Trazodone 100 Mg Tab PO Not Given QHS KENNETH
[2021-02-05] MEDS ORDERED: DEXTROSE 50% IN WATER (25GM) 50 ML SYRINGE IV PRN (11:30)
[2021-02-05] MEDS: POTASSIUM CHLORIDE 10 MEQ 10 MEQ/100 ML BAG IV SCH ×2 (11:52→13:13)
[2021-02-05] MEDS: SODIUM CHLORIDE 0.9% 1000 ML 1,000 ML IV SCH ×2 (16:32→22:14)
[2021-02-05] MEDS: INSULIN LISPRO 100 UNIT/ML SUB-Q SCH ×2 (18:17→22:13)
[2021-02-05] MEDS: AMITRIPTYLINE 25 MG TAB PO SCH (22:14)
[2021-02-05] MEDS: risperiDONE 1 MG TAB PO SCH (22:15)
[2021-02-05] MEDS: traZODone 100 MG TAB PO SCH (22:15)
[2021-02-05] MEDS: MIRTAZAPINE 15 MG TAB PO SCH (22:15)
[2021-02-05] MEDS: INSULIN NPH/REGULAR 70/30 INJ SUB-Q SCH (23:35)
[2021-02-06] MEDS ORDERED: hydrALAZINE 20 MG/1 ML INJ IV PRN (05:04)
[2021-02-06] MEDS: SODIUM CHLORIDE 0.9% 1000 ML 1,000 ML IV SCH (05:30)
[2021-02-06 06:09] LABS: Hematocrit 32.7 % (35.5-45.6); Mean Corpuscular HGB Conc 34 % (32-34); Mean Corpuscular Volume 89 fl (84-94); Platelet Count 441 K/mm3 (140-440); Red Blood Count 3.67 M/mm3 (3.65-5.03)
[2021-02-06 06:21] LABS: BUN/Creatinine Ratio 11; Blood Urea Nitrogen 9 mg/dL (9-20); Calcium 8.8 mg/dL (8.4-10.2); Hemolysis Index 0
[2021-02-06] MEDS ORDERED: POTASSIUM CHLORIDE ER 20 MEQ TAB PO NR (07:34)
[2021-02-06] MEDS: GABAPENTIN 400 MG CAP PO SCH ×3 (08:41→21:44)
[2021-02-06] MEDS: INSULIN NPH/REGULAR 70/30 INJ SUB-Q SCH ×2 (08:41→21:58)
[2021-02-06] MEDS: INSULIN LISPRO 100 UNIT/ML SUB-Q SCH ×5 (08:43→21:59)
[2021-02-06] MEDS: ESCITALOPRAM 10 MG TAB PO SCH (09:46)
[2021-02-06] MEDS: CETIRIZINE 10 MG TAB PO SCH (09:46)
[2021-02-06] MEDS: amLODIPine 10 MG TAB PO SCH (09:46)
[2021-02-06] MEDS: PANTOPRAZOLE 20 MG TAB PO SCH ×2 (09:46→21:44)
[2021-02-06] MEDS: FOLIC ACID 1 MG TAB PO SCH (09:46)
[2021-02-06] MEDS: cloNIDine 0.2 MG TAB PO SCH ×2 (09:47→21:45)
[2021-02-06] MEDS: HEPARIN 5,000 UNIT/1 ML VIAL SUB-Q SCH ×2 (09:48→21:45)
[2021-02-06] MEDS: FLUTICASONE PROPIONATE NASAL SPRAY 16 GM NS SCH (09:48)
--- NOTE | 2021-02-06 11:26 | Progress Note ---
Assessment and Plan Assessment and plan: 45 YO Male with HTN, DM, HLD, Depression, ETOH Dependence presents to ED for evaluation. Patient is confused with diminished cognition at the time of my evaluation and is unable to provide detailed history. Patient history provided by EMS staff as well as ED staff. Patient staff reports that patient was found to have confusion today as per family members. EMS was notified and upon arrival the patient was found to be in distress with an elevated blood glucose of 528. The patient was subsequently transported to [facility] for further care and evaluation of the aforementioned symptoms. The patient was seen and evaluated in the emergency department. The patient was found to have DKA, metabolic acidosis, DERW with ATN as well as metabolic encephalopathy. The patient was admitted to ICU and initiated on DKA protocol. No further history is obtainable. The patient has diminished cognition at this time my evaluation but has a positive gag reflex and is able to protect his airway without difficulty. No medication listed at time of admission for reconciliation. Prior admission on 01/27/2020 reviewed. 02/03: Gap is almost close, continue current management, continue management for ETOH Withdrawal. Updating family. 02/04: Continue supportive care, will give a bolus of fluid, give additional po tassium supplementation, continue insulin drip hopefully closes soon. Aspiration precaution. 02/05: Gap closed, transition to insulin sliding scale and AM/PM dose, awaiting yakov woodruff. still drowsy but much improved compared to yesterday. Replace K. 02/06: Noted to have ventricular pause for 2 seconds no other incident EKG obtained. Echocardiogram ordered. Cardiology consulted. Still awaiting psych evaluation anticipate discharge in 24 hours if no further cardiac work-up. (1) DKA (diabetic ketoacidoses) Current Visit: Yes Status: Acute Qualifiers: Diabetes mellitus type: type 1 Plan to address problem: DKA protocol: Patient admitted to ICU and initiated on DKA protocol. Insulin drip, IV fluid resuscitation therapy, monitor urine output every shift, serial BMP, monitor anion gap, potassium repletion as per protocol. (2) Metabolic acidosis Current Visit: Yes Status: Acute Plan to address problem: IV fluid resuscitation therapy, serial lactic acid level, supportive care. (3) Metabolic encephalopathy Current Visit: Yes Status: Acute Plan to address problem: CT head-negative, neuro check, seizure precautions, supportive care. Treat DKA. (4) Alcohol dependence with mild withdrawal Current Visit: Yes Status: Acute Plan to address problem: Thiamine, folic acid, multivitamin, CIWA protocol, banana bag. (5) Hypokalemia Replace (6) Hyponatremia (7) DREW with ATN DVT prophylaxis Current Visit: Yes Status: Acute Plan to address problem: SCDs bilateral lower extremities while in bed, patient is ambulatory. History Interval history: Patient seen and examined, awake and responsive no acute issues noted at this time. Was noted to have 2-second pauses ventricular. Hospitalist Physical - Physical exam Narrative exam: GENERAL: The patient is well-developed well-nourished. HENT: Normocephalic. Atraumatic. Patient has moist mucous membranes. EYES: Extraocular motions are intact. NECK: Supple. Trachea is midline. CHEST/LUNGS: Clear to auscultation. HEART/CARDIOVASCULAR: Regular. There is no tachycardia. There is no murmur. ABDOMEN: Abdomen is soft, nontender. Patient has normal bowel sounds. There is no abdominal distention. SKIN: Skin is warm and dry. NEURO: The patient is awake but confused. Follows some commands. MUSCULOSKELETAL: There is no tenderness or deformity. There is no limitation range of motion. - Constitutional Vitals: Temp Pulse Resp BP Pulse Ox 97.6 F 98 H 20 157/92 98 02/06/21 03:37 02/06/21 10:00 02/06/21 10:00 02/06/21 09:47 02/06/21 03:37 General appearance: Present: mild distress HEART Score - HEART Score Troponin: Troponin T < 0.010 ng/mL (0.00-0.029) 02/02/21 19:16 Results - Labs CBC & Chem 7: 02/06/21 04:40 02/06/21 04:40 Labs: Laboratory Last Values WBC 5.5 K/mm3 (4.5-11.0) 02/06/21 04:40 RBC 3.67 M/mm3 (3.65-5.03) 02/06/21 04:40 Hgb 11.0 gm/dl (11.8-15.2) L 02/06/21 04:40 Hct 32.7 % (35.5-45.6) L 02/06/21 04:40 MCV 89 fl (84-94) 02/06/21 04:40 MCH 30 pg (28-32) 02/06/21 04:40 MCHC 34 % (32-34) 02/06/21 04:40 RDW 16.0 % (13.2-15.2) H 02/06/21 04:40 Plt Count 441 K/mm3 (140-440) H 02/06/21 04:40 Lymph % (Auto) 5.6 % (13.4-35.0) L 02/02/21 19:06 Ray % (Auto) 8.8 % (0.0-7.3) H 02/02/21 19:06 Eos % (Auto) 0.0 % (0.0-4.3) 02/02/21 19:06 Baso % (Auto) 0.7 % (0.0-1.8) 02/02/21 19:06 Lymph # (Auto) 0.6 K/mm3 (1.2-5.4) L 02/02/21 19:06 Ray # (Auto) 1.0 K/mm3 (0.0-0.8) H 02/02/21 19:06 Eos # (Auto) 0.0 K/mm3 (0.0-0.4) 02/02/21 19:06 Baso # (Auto) 0.1 K/mm3 (0.0-0.1) 02/02/21 19:06 Seg Neutrophils % 84.9 % (40.0-70.0) H 02/02/21 19:06 Seg Neutrophils # 9.5 K/mm3 (1.8-7.7) H 02/02/21 19:06 VBG pH 7.097 (7.320-7.420) L* 02/02/21 19:06 Sodium 143 mmol/L (137-145) 02/06/21 04:40 Potassium 3.2 mmol/L (3.6-5.0) L 02/06/21 04:40 Chloride 108.3 mmol/L (98-107) H 02/06/21 04:40 Carbon Dioxide 22 mmol/L (22-30) 02/06/21 04:40 Anion Gap 16 mmol/L 02/06/21 04:40 BUN 9 mg/dL (9-20) 02/06/21 04:40 Creatinine 0.8 mg/dL (0.8-1.3) 02/06/21 04:40 Estimated GFR > 60 ml/min 02/06/21 04:40 BUN/Creatinine Ratio 11 % 02/06/21 04:40 Glucose 203 mg/dL (75-100) H 02/06/21 04:40 POC Glucose 196 mg/dL (70-105) H 02/06/21 08:40 Ketones Quantitative Moderate (Negative) 02/02/21 19:06 Calcium 8.8 mg/dL (8.4-10.2) 02/06/21 04:40 Phosphorus 5.60 mg/dL (2.5-4.5) H 02/02/21 20:06 Magnesium 2.80 mg/dL (1.7-2.3) H 02/02/21 20:06 Total Bilirubin 0.40 mg/dL (0.1-1.2) 02/02/21 19:06 AST 25 units/L (5-40) 02/02/21 19:06 ALT 23 units/L (7-56) 02/02/21 19:06 Alkaline Phosphatase 137 units/L (35-129) H 02/02/21 19:06 Ammonia 61.0 umol/L (25-60) H 02/04/21 04:37 Troponin T < 0.010 ng/mL (0.00-0.029) 02/02/21 19:16 Total Protein 9.2 g/dL (6.3-8.2) H 02/02/21 19:06 Albumin 4.3 g/dL (3.9-5) 02/02/21 19:06 Albumin/Globulin Ratio 0.9 % 02/02/21 19:06 Procalcitonin 0.26 ng/mL (<0.15) 02/03/21 21:10 Urine Color Straw (Yellow) 02/02/21 20:12 Urine Turbidity Clear (Clear) 02/02/21 20:12 Urine pH 5.0 (5.0-7.0) 02/02/21 20:12 Ur Specific [place] 1.017 (1.003-1.030) 02/02/21 20:12 Urine Protein 30 mg/dl mg/dL (Negative) 02/02/21 20:12 Urine Glucose (UA) >=500 mg/dL (Negative) 02/02/21 20:12 Urine Ketones 80 mg/dL (Negative) 02/02/21 20:12 Urine Blood Mod (Negative) 02/02/21 20:12 Urine Nitrite Neg (Negative) 02/02/21 20:12 Urine Bilirubin Neg (Negative) 02/02/21 20:12 Urine Urobilinogen < 2.0 mg/dL (<2.0) 02/02/21 20:12 Ur Leukocyte Esterase Neg (Negative) 02/02/21 20:12 Urine WBC (Auto) < 1.0 /HPF (0.0-6.0) 02/02/21 20:12 Urine RBC (Auto) 1.0 /HPF (0.0-6.0) 02/02/21 20:12 U Epithel Cells (Auto) < 1.0 /HPF (0-13.0) 02/02/21 20:12 Urine Mucus Few /HPF 02/02/21 20:12 Urine Opiates Screen Negative 02/02/21 20:12 Urine Methadone Screen Negative 02/02/21 20:12 Ur Barbiturates Screen Negative 02/02/21 20:12 Ur Phencyclidine Scrn Negative 02/02/21 20:12 Ur Amphetamines Screen Negative 02/02/21 20:12 U Benzodiazepines Scrn Negative 02/02/21 20:12 Urine Cocaine Screen Positive 02/02/21 20:12 U Marijuana (THC) Screen Negative 02/02/21 20:12 Drugs of Abuse Note Disclamer 02/02/21 20:12 Plasma/Serum Alcohol < 0.01 % (0-0.07) 02/02/21 19:06 Coronavirus (PCR) Negative (Negative) 02/03/21 09:15 Olivo/IV: Voiding Method Condom Catheter Active Medications - Current Medications Current Medications: Generic Name Dose Route Start Last Admin Trade Name Freq PRN Reason Stop Dose Admin Amitriptyline HCl 50 mg 02/02/21 22:00 02/05/21 22:14 Amitriptyline 25 Mg Tab PO 50 mg QHS KENNETH Administration Amlodipine Besylate 10 mg 02/03/21 10:00 02/06/21 09:46 Amlodipine 10 Mg Tab PO 10 mg DAILY KENNETH Administration Cetirizine HCl 10 mg 02/03/21 10:00 02/06/21 09:46 Cetirizine 10 Mg Tab PO 10 mg DAILY KENNETH Administration Clonidine HCl 0.2 mg 02/02/21 22:00 02/06/21 09:47 Clonidine 0.2 Mg Tab PO 0.2 mg BID KENNETH Administration Dextrose 50 ml 02/05/21 11:30 Dextrose 50% In Water (25gm) 50 Ml Syringe IV Q30MIN PRN Hypoglycemia Protocol Escitalopram Oxalate 20 mg 02/03/21 10:00 02/06/21 09:46 Escitalopram 10 Mg Tab PO 20 mg DAILY KENNETH Administration Fluticasone Propionate 50 mcg 02/06/21 10:00 02/06/21 09:48 Fluticasone Propionate Nasal [place] 16 Gm NS 50 mcg DAILY KENNETH Administration Folic Acid 1 mg 02/03/21 10:00 02/06/21 09:46 Folic Acid 1 Mg Tab PO 1 mg QDAY KENNETH Administration Gabapentin 400 mg 02/03/21 08:00 02/06/21 08:41 Gabapentin 400 Mg Cap PO 400 mg TID KENNETH Administration Heparin Sodium (Porcine) 5,000 unit 02/03/21 22:00 02/06/21 09:48 Heparin 5,000 Unit/1 Ml Vial SUB-Q 5,000 unit Q12HR KENNETH Administration Hydralazine HCl 5 mg 02/06/21 05:04 02/06/21 05:56 Hydralazine 20 Mg/1 Ml Inj IV 5 mg Q4H PRN Administration HYPERTENSION Sodium Chloride 1,000 mls @ 150 mls/hr 02/02/21 20:15 02/06/21 05:30 Nacl 0.9% 1000 Ml IV 150 mls/hr DIRECT KENNETH Administration Insulin Human Isoph/Insulin Regular 40 unit 02/06/21 08:00 02/06/21 08:41 Insulin Nph/Regular 70/30 Inj SUB-Q 40 unit QAMDIAB KENNETH Administration Insulin Human Isoph/Insulin Regular 50 unit 02/05/21 22:00 02/05/21 23:35 Insulin Nph/Regular 70/30 Inj SUB-Q 50 unit QHS KENNETH Administration Insulin Human Lispro 0 unit 02/05/21 11:30 02/06/21 08:43 Insulin Lispro 100 Unit/Ml SUB-Q 2 unit ACHS KENNETH Administration Protocol Lactic Acid 1 applic 02/02/21 22:00 02/05/21 22:21 Ammonium Lactate 12% Lotion TP 1 applic BID KENNETH Administration Lisinopril 40 mg 02/03/21 10:00 02/05/21 09:54 Lisinopril 40 Mg Tab PO 40 mg QDAY KENNETH Administration Lorazepam 2 mg 02/02/21 20:35 02/05/21 01:53 Lorazepam 2 Mg/Ml Vial IV 2 mg Q1HR PRN Administration CIWA-Ar 8-15 Mirtazapine 45 mg 02/02/21 22:00 02/05/21 22:15 Mirtazapine 15 Mg Tab PO 45 mg QHS KENNETH Administration Pantoprazole Sodium 20 mg 02/02/21 22:00 02/06/21 09:46 Pantoprazole 20 Mg Tab PO 20 mg BID KENNETH Administration Potassium Chloride 40 meq 02/06/21 07:34 Potassium Chloride Er 20 Meq Tab PO 02/06/21 12:00 ONCE NR Risperidone 1 mg 02/02/21 22:00 02/05/21 22:15 Risperidone 1 Mg Tab PO 1 mg QHS KENNETH Administration Risperidone 0.5 mg 02/03/21 10:00 02/05/21 09:52 Risperidone 0.25 Mg Tab PO 0.5 mg QAM KENNETH Administration Sodium Chloride 10 ml 02/02/21 22:00 02/05/21 22:13 Sodium Chloride 0.9% 10 Ml Flush Syringe IV 10 ml BID KENNETH Administration Sodium Chloride 10 ml 02/02/21 20:06 Sodium Chloride 0.9% 10 Ml Flush Syringe IV PRN PRN LINE FLUSH Trazodone HCl 100 mg 02/02/21 22:00 02/05/21 22:15 Trazodone 100 Mg Tab PO 100 mg QHS KENNETH Administration
--- NOTE | 2021-02-06 12:37 | Consultation ---
History of Present Illness Consult date: 02/06/21 Consult reason: other (AV block with 4: 1 block February 06, 2021 00: 05 hours. Patient was sleeping. No symptoms.) History of present illness: 45-year-old gentleman, with history of type 2 diabetes from 2003 also at which time he was hospitalized at [facility]. Subsequently he was disabled since 2009 with back problems, being followed at a clinic for his high blood pressure and diabetes. He was feeling some abdominal pain and he was evaluated was admitted with altered mental status SND diabetic ketoacidosis and probable mild withdrawal. He was noted to have ketoacidosis, and it was appropriately treated presently is better, is alert oriented x3. He was monitored in the telemetry. During this monitoring he was noted to have 2.2- second pause February 06, 2021 at 00: 05 hours. Patient however was sleeping and no symptoms during this. We were consulted for follow-up of this. Patient denies any previous cardiac history. No history of myocardial infarction or congestive heart failure. Denies any history of dizziness or s yncope. He lives with his fiance and walks the dog without any complaints of chest pain or dizziness or syncopal episodes. However he does get short of breath once in a while. EKG done at the time of admission showed sinus tachycardia at 101 bpm with mild QT prolongation with corrected QT interval of 517 ms and uncorrected interval of 398 ms. Subsequently patient was noted to be in regular sinus rhythm without any significant pauses except the one I mentioned above. He has been continuously monitored from the time of admission. No tachycardia noted significant pauses noted except the ones mentioned above. Presently patient denies any complaints of chest pain or shortness of breath. Past History Past Medical History: diabetes (Since 2003 at which time he was hospitalized at [facility]), hypertension (Longstanding essential hypertension probably from 2003 is supple), hyperlipidemia, other (See HPI) Past Surgical History: Other (Left foot surgery) Social history: single (Patient lives with fianc, disabled, walks with the dog. Denies any history of smoking but he says he drinks a few beers a day. No history of drug abuse.), alcohol abuse. denies: smoking, prescription drug abuse Family history: diabetes, hypertension Medications and Allergies Allergies Allergy/AdvReac Type Severity Reaction Status Date / Time No Known Allergies Allergy Unverified 10/30/15 11:38 Home Medications Medication Instructions Recorded Confirmed Last Taken Type traMADoL [Ultram 50 MG tab] 50 mg PO Q6HR PRN #20 tablet 10/30/15 02/05/21 Unknown Rx Amitriptyline [Elavil] 50 mg PO QHS 01/27/20 02/05/21 Unknown History Ammonium Lactate [Lac-Hydrin 1 applicatio TP BID 01/27/20 02/05/21 Unknown History Lotion] Escitalopram Oxalate [Lexapro] 20 mg PO DAILY 01/27/20 02/05/21 Unknown History Fluticasone [Flonase] 50 mcg IH DAILY 01/27/20 02/05/21 Unknown History Gabapentin 400 mg PO TID 01/27/20 02/05/21 Unknown History Insulin NPH Hum/Reg Insulin Hm 40 unit SQ QAM 01/27/20 02/05/21 Unknown History [HumuLIN 70-30 Vial] Insulin NPH Hum/Reg Insulin Hm 50 unit SQ QHS 01/27/20 02/05/21 Unknown History [Humulin 70-30 Vial] Loratadine (Nf) 10 mg PO DAILY 01/27/20 02/05/21 Unknown History Meloxicam [Mobic] 15 mg PO DAILY 01/27/20 02/05/21 Unknown History Metformin HCl [metFORMIN] 1,000 mg PO BID 01/27/20 02/05/21 Unknown History Mirtazapine [Remeron 45mg TAB] 45 mg PO QHS 01/27/20 02/05/21 Unknown History Omeprazole 20 mg PO BID 01/27/20 02/05/21 Unknown History amLODIPine [Norvasc] 10 mg PO DAILY 01/27/20 02/05/21 Unknown History cloNIDine [Catapres] 0.2 mg PO BID 01/27/20 02/05/21 Unknown History lisinopriL [Zestril TAB] 40 mg PO QDAY 01/27/20 02/05/21 Unknown History risperiDONE [RisperDAL] 2 mg PO QHS 01/27/20 02/05/21 Unknown History risperiDONE [risperiDONE ODT] 1 mg PO QAM 01/27/20 02/05/21 Unknown History traMADoL [Ultram] 50 mg PO Q6HR PRN 01/27/20 02/05/21 Unknown History traZODone [Desyrel] 100 mg PO QHS 01/27/20 02/05/21 Unknown History Cyclobenzaprine [Flexeril] 10 mg PO TID 02/05/21 02/05/21 Unknown History Hydroxyzine HCl [hydrOXYzine] 50 mg PO HS 02/05/21 02/05/21 Unknown History Mirtazapine [Remeron 45mg TAB] 45 mg PO QHS 02/05/21 02/05/21 Unknown History atenoloL [Tenormin] 50 mg PO DAILY 02/05/21 02/05/21 Unknown History traZODone [Desyrel] 50 mg PO QHS 02/05/21 02/05/21 Unknown History Active Meds: Active Medications Amitriptyline HCl (Amitriptyline 25 Mg Tab) 50 mg PO QHS [facility] Last Admin: 02/05/21 22:14 Dose: 50 mg Documented by: Amlodipine Besylate (Amlodipine 10 Mg Tab) 10 mg PO DAILY [facility] Last Admin: 02/06/21 09:46 Dose: 10 mg Documented by: Cetirizine HCl (Cetirizine 10 Mg Tab) 10 mg PO DAILY [facility] Last Admin: 02/06/21 09:46 Dose: 10 mg Documented by: Clonidine HCl (Clonidine 0.2 Mg Tab) 0.2 mg PO BID [facility] Last Admin: 02/06/21 09:47 Dose: 0.2 mg Documented by: Dextrose (Dextrose 50% In Water (25gm) 50 Ml Syringe) 50 ml IV Q30MIN PRN; Protocol PRN Reason: Hypoglycemia Escitalopram Oxalate (Escitalopram 10 Mg Tab) 20 mg PO DAILY [facility] Last Admin: 02/06/21 09:46 Dose: 20 mg Documented by: Fluticasone Propionate (Fluticasone Propionate Nasal [place] 16 Gm) 50 mcg NS DAILY [facility] Last Admin: 02/06/21 09:48 Dose: 50 mcg Documented by: Folic Acid (Folic Acid 1 Mg Tab) 1 mg PO QDAY [facility] Last Admin: 02/06/21 09:46 Dose: 1 mg Documented by: Gabapentin (Gabapentin 400 Mg Cap) 400 mg PO TID [facility] Last Admin: 02/06/21 08:41 Dose: 400 mg Documented by: Heparin Sodium (Porcine) (Heparin 5,000 Unit/1 Ml Vial) 5,000 unit SUB-Q Q12HR [facility] Last Admin: 02/06/21 09:48 Dose: 5,000 unit Documented by: Hydralazine HCl (Hydralazine 20 Mg/1 Ml Inj) 5 mg IV Q4H PRN PRN Reason: HYPERTENSION Last Admin: 02/06/21 05:56 Dose: 5 mg Documented by: Sodium Chloride (Nacl 0.9% 1000 Ml) 1,000 mls @ 150 mls/hr IV DIRECT [facility] Last Admin: 02/06/21 05:30 Dose: 150 mls/hr Documented by: Insulin Human Isoph/Insulin Regular (Insulin Nph/Regular 70/30 Inj) 40 unit SUB-Q QAMDIAB [facility] Last Admin: 02/06/21 08:41 Dose: 40 unit Documented by: Insulin Human Isoph/Insulin Regular (Insulin Nph/Regular 70/30 Inj) 50 unit SUB-Q QHS [facility] Last Admin: 02/05/21 23:35 Dose: 50 unit Documented by: Insulin Human Lispro (Insulin Lispro 100 Unit/Ml) 0 unit SUB-Q ACHS [facility]; Protocol Last Admin: 02/06/21 08:43 Dose: 2 unit Documented by: Lactic Acid (Ammonium Lactate 12% Lotion) 1 applic TP BID [facility] Last Admin: 02/05/21 22:21 Dose: 1 applic Documented by: Lisinopril (Lisinopril 40 Mg Tab) 40 mg PO QDAY [facility] Last Admin: 02/05/21 09:54 Dose: 40 mg Documented by: Lorazepam (Lorazepam 2 Mg/Ml Vial) 2 mg IV Q1HR PRN PRN Reason: CIWA-Ar 815 Last Admin: 02/05/21 01:53 Dose: 2 mg Documented by: Mirtazapine (Mirtazapine 15 Mg Tab) 45 mg PO QHS [facility] Last Admin: 02/05/21 22:15 Dose: 45 mg Documented by: Pantoprazole Sodium (Pantoprazole 20 Mg Tab) 20 mg PO BID [facility] Last Admin: 02/06/21 09:46 Dose: 20 mg Documented by: Risperidone (Risperidone 1 Mg Tab) 1 mg PO QHS [facility] Last Admin: 02/05/21 22:15 Dose: 1 mg Documented by: Risperidone (Risperidone 0.25 Mg Tab) 0.5 mg PO QAM [facility] Last Admin: 02/05/21 09:52 Dose: 0.5 mg Documented by: Sodium Chloride (Sodium Chloride 0.9% 10 Ml Flush Syringe) 10 ml IV BID [facility] Last Admin: 02/05/21 22:13 Dose: 10 ml Documented by: Sodium Chloride (Sodium Chloride 0.9% 10 Ml Flush Syringe) 10 ml IV PRN PRN PRN Reason: LINE FLUSH Trazodone HCl (Trazodone 100 Mg Tab) 100 mg PO QHS [facility] Last Admin: 02/05/21 22:15 Dose: 100 mg Documented by: Review of Systems Ears, nose, mouth and throat: no ear discharge Cardiovascular: shortness of breath, dyspnea on exertion, high blood pressure, no chest pain, no orthopnea, no palpitations, no syncope, no lightheadedness, no leg edema Respiratory: no cough Gastrointestinal: abdominal pain Genitourinary Male: no hematuria Musculoskeletal: no neck stiffness Integumentary: no rash Neurological: no seizures Psychiatric: no anxiety Endocrine: no cold intolerance Hematologic/Lymphatic: no easy bleeding Allergic/Immunologic: no urticaria Physical Examination Vital Signs Pulse Resp BP Pulse Ox 102 H 42 H 142/98 100 02/02/21 18:31 02/02/21 18:31 02/02/21 18:31 02/02/21 18:31 General appearance: no acute distress HEENT: Positive: PERRL Cardiac: Positive: Reg Rate and Rhythm, S4. Negative: Audible Murmur Lungs: Positive: clear to auscultation Neuro: Positive: Grossly Intact Abdomen: Positive: Unremarkable Male genitourinary: Positive: deferred Skin: Negative: Rash Extremities: Absent: edema (Good posterior tibial pulses noted bilaterally.) Results 02/06/21 04:40 02/06/21 04:40 CBC 02/06/21 Range/Units 04:40 WBC 5.5 (4.5-11.0) K/mm3 RBC 3.67 (3.65-5.03) M/mm3 Hgb 11.0 L (11.8-15.2) gm/dl Hct 32.7 L (35.5-45.6) % Plt Count 441 H (140-440) K/mm3 Comprehensive Metabolic Panel 02/06/21 Range/Units 04:40 Sodium 143 (137-145) mmol/L Potassium 3.2 L (3.6-5.0) mmol/L Chloride 108.3 H (98-107) mmol/L Carbon Dioxide 22 (22-30) mmol/L BUN 9 (9-20) mg/dL Creatinine 0.8 (0.8-1.3) mg/dL Glucose 203 H (75-100) mg/dL Calcium 8.8 (8.4-10.2) mg/dL Laboratory Tests 02/02/21 19:16 Troponin T < 0.010 EKG interpretations - EKG Sinus rhythms and dysrhythmias: sinus rhythm (EKG done at the time of admission showed mild sinus tachycardia and mildly prolonged corrected QT interval at 517 ms.) Assessment and Plan 45-year-old white gentleman with history of diabetes mellitus, hypertension and hyperlipidemia was admitted with altered mental status status and diabetic ketoacidosis and also mild alcohol withdrawal, was appropriately treated presently doing well. However he was noted to have a 2.2-second pause early in the morning when he was sleeping without any symptoms. Hence the consultation. Patient was monitored throughout the hospitalization and no other significant pauses were noted. Patient denies any history of dizziness syncopal episodes in the past denies any chest pain however he does get short of breath with his usual activities when he walks his dog. Patient is a diabetic since 2003 and hypertensive and hyperlipidemic. Does not appear to have any cardiac evaluation done. Considering the above findings we will continue to monitor on telemetry, and also will try to get an echocardiogram 1 day pharmacological stress testing for further evaluation considering did not have any cardiac evaluation in the past. However patient appears to be stable. Pause noted on the monitor appears to be physiologic at this point. Unless he develops further episodes of significant pauses, no particular treatment is indicated at this point. Will await echocardiogram and pharmacological stress testing to be done. Explained the same to the patient and is agreeable with the plan.
--- NOTE | 2021-02-06 13:43 | Progress Note ---
Assessment and Plan Diabetic ketoacidosis. Acute toxic metabolic encephalopathy. Acute kidney injury. History of alcohol abuse. Metabolic acidosis. Leukocytosis. Elevated serum ammonia level - COVID test negative - continue supplemental oxygen to keep O2 sats > 90% - prn Bronchodilators (MIRTHA) with pulm hygiene per RT - continue CIWA protocol - continue IV insulin therapy per DKA protocol - volume resuscitation and follow electrolytes - continue to avoid nephrotoxins, renally dose all medications - continue mobility protocols to prevent pressure ulcers - PT/OT as tolerated - Wound care per RN/WCT - home oxygen evaluation at discharge - GI & VTE prophylaxis - Flu & pneumovax per protocol - prn analgesia per pain score - continue other care per attending / other consultants .... transfer out of ICU OK ... re-evaluate in am & prn Subjective Date of service: 02/05/21 Principal diagnosis: DKA; Ac. Encephalopathy; Alcohol abuse; Metabolic acidosis; hyperammonemia Interval history: Patient is seen today for: Diabetic ketoacidosis; Acute toxic metabolic encephalopathy; History of alcohol abuse; Metabolic acidosis; hyperammonemia Seen and examined at bedside; 24hour events reviewed; nursing and respiratory care staff consulted; no adverse overnight events reported to me; resting peacef ully in bed; remains on CIWA protocol; AG closed and off IV insulin; No N/V/F/C Objective Vital Signs - 12hr 02/05/21 02/05/21 02/05/21 02:00 03:00 03:50 Temperature 98.6 F Pulse Rate 94 H 96 H Pulse Rate [ From Monitor] Respiratory 15 15 Rate Blood Pressure 175/95 151/93 O2 Sat by Pulse 97 97 Oximetry 02/05/21 02/05/21 02/05/21 04:00 05:00 06:00 Temperature Pulse Rate 101 H 96 H 101 H Pulse Rate [ 91 H From Monitor] Respiratory 13 14 21 Rate Blood Pressure 166/94 154/89 158/109 O2 Sat by Pulse 97 97 100 Oximetry 02/05/21 02/05/21 02/05/21 07:00 08:00 09:00 Temperature 98.6 F Pulse Rate 103 H 94 H 112 H Pulse Rate [ 106 H From Monitor] Respiratory 16 15 15 Rate Blood Pressure 187/106 157/92 177/89 O2 Sat by Pulse 99 98 Oximetry 02/05/21 02/05/21 02/05/21 09:52 09:54 09:55 Temperature Pulse Rate 106 H 103 H 105 H Pulse Rate [ From Monitor] Respiratory Rate Blood Pressure 177/89 177/89 177/89 O2 Sat by Pulse Oximetry 02/05/21 02/05/21 02/05/21 10:00 11:01 12:00 Temperature 98 F Pulse Rate 106 H Pulse Rate [ 89 From Monitor] Respiratory 14 14 Rate Blood Pressure 194/110 194/110 O2 Sat by Pulse 100 100 Oximetry 02/05/21 12:01 Temperature Pulse Rate 85 Pulse Rate [ From Monitor] Respiratory 17 Rate Blood Pressure 126/69 O2 Sat by Pulse 98 Oximetry Constitutional: no acute distress Eyes: non-icteric ENT: oropharynx moist Neck: supple, no lymphadenopathy, no JVD Effort: mildly labored Ascultation: Bilateral: clear Percussion: Bilateral: not dull Cardiovascular: regular rate and rhythm Gastrointestinal: normoactive bowel sounds, soft, non-tender, non-distended Integumentary: rash Extremities: no cyanosis, no edema, pulses normal, no ischemia or petechiae Neurologic: non-focal exam (grossly), pupils equal and round, unable to assess Psychiatric: other (unable to assess re: AMS) CBC and BMP: 02/06/21 04:40 02/06/21 04:40 Abnormal lab findings: Abnormal Labs 02/02/21 02/02/21 02/02/21 19:06 19:06 19:06 WBC 11.2 H MCV 96 H RDW 16.3 H Plt Count 454 H Lymph % (Auto) 5.6 L Norman % (Auto) 8.8 H Lymph # (Auto) 0.6 L Norman # (Auto) 1.0 H Seg Neutrophils % 84.9 H Seg Neutrophils # 9.5 H VBG pH 7.097 L* Sodium 126 L Potassium Chloride 87.3 L Carbon Dioxide 4 L* BUN 45 H Creatinine 1.7 H Glucose 531 H* POC Glucose Phosphorus Magnesium Alkaline Phosphatase 137 H Ammonia Total Protein 9.2 H 02/02/21 02/02/21 02/02/21 19:06 20:06 20:06 WBC MCV RDW Plt Count Lymph % (Auto) Norman % (Auto) Lymph # (Auto) Norman # (Auto) Seg Neutrophils % Seg Neutrophils # VBG pH Sodium 127 L Potassium Chloride 87.6 L Carbon Dioxide 3 L* BUN 45 H Creatinine 1.7 H Glucose 499 H POC Glucose Phosphorus 5.60 H Magnesium 2.80 H Alkaline Phosphatase Ammonia 97.0 H Total Protein 02/02/21 02/02/21 02/02/21 22:27 22:45 23:31 WBC MCV RDW Plt Count Lymph % (Auto) Norman % (Auto) Lymph # (Auto) Norman # (Auto) Seg Neutrophils % Seg Neutrophils # VBG pH Sodium 134 L D Potassium Chloride 93.9 L Carbon Dioxide 3 L* BUN 47 H Creatinine 1.7 H Glucose 383 H POC Glucose 366 H 252 H Phosphorus Magnesium Alkaline Phosphatase Ammonia Total Protein 02/03/21 02/03/21 02/03/21 00:13 00:45 01:37 WBC MCV RDW Plt Count Lymph % (Auto) Norman % (Auto) Lymph # (Auto) Norman # (Auto) Seg Neutrophils % Seg Neutrophils # VBG pH Sodium Potassium Chloride 97.5 L Carbon Dioxide 7 L* BUN 47 H Creatinine 1.6 H Glucose 239 H POC Glucose 209 H 156 H Phosphorus Magnesium Alkaline Phosphatase Ammonia Total Protein 02/03/21 02/03/21 02/03/21 02:37 03:47 04:32 WBC MCV RDW Plt Count Lymph % (Auto) Norman % (Auto) Lymph # (Auto) Norman # (Auto) Seg Neutrophils % Seg Neutrophils # VBG pH Sodium Potassium 3.5 L Chloride Carbon Dioxide 9 L* BUN 43 H Creatinine 1.4 H Glucose 186 H POC Glucose 156 H 190 H Phosphorus Magnesium Alkaline Phosphatase Ammonia Total Protein 02/03/21 02/03/21 02/03/21 06:44 09:34 10:01 WBC MCV RDW Plt Count Lymph % (Auto) Norman % (Auto) Lymph # (Auto) Norman # (Auto) Seg Neutrophils % Seg Neutrophils # VBG pH Sodium Potassium Chloride Carbon Dioxide BUN Creatinine Glucose POC Glucose 168 H 173 H 180 H Phosphorus Magnesium Alkaline Phosphatase Ammonia Total Protein 02/03/21 02/03/21 02/03/21 11:21 12:08 12:53 WBC MCV RDW Plt Count Lymph % (Auto) Norman % (Auto) Lymph # (Auto) Norman # (Auto) Seg Neutrophils % Seg Neutrophils # VBG pH Sodium Potassium Chloride Carbon Dioxide BUN Creatinine Glucose POC Glucose 183 H 153 H 116 H Phosphorus Magnesium Alkaline Phosphatase Ammonia Total Protein 02/03/21 02/03/21 02/03/21 13:15 14:05 15:18 WBC MCV RDW Plt Count Lymph % (Auto) Norman % (Auto) Lymph # (Auto) Norman # (Auto) Seg Neutrophils % Seg Neutrophils # VBG pH Sodium Potassium 3.0 L Chloride Carbon Dioxide 14 L BUN 35 H Creatinine 1.4 H Glucose 117 H POC Glucose 148 H 164 H Phosphorus Magnesium Alkaline Phosphatase Ammonia Total Protein 02/03/21 02/03/21 02/03/21 16:07 17:25 17:59 WBC MCV RDW Plt Count Lymph % (Auto) Norman % (Auto) Lymph # (Auto) Norman # (Auto) Seg Neutrophils % Seg Neutrophils # VBG pH Sodium Potassium Chloride Carbon Dioxide BUN Creatinine Glucose POC Glucose 184 H 146 H 119 H Phosphorus Magnesium Alkaline Phosphatase Ammonia Total Protein 02/03/21 02/03/21 02/03/21 18:58 19:51 20:56 WBC MCV RDW Plt Count Lymph % (Auto) Norman % (Auto) Lymph # (Auto) Norman # (Auto) Seg Neutrophils % Seg Neutrophils # VBG pH Sodium Potassium Chloride Carbon Dioxide BUN Creatinine Glucose POC Glucose 141 H 156 H 149 H Phosphorus Magnesium Alkaline Phosphatase Ammonia Total Protein 02/03/21 02/03/21 02/03/21 21:06 21:10 22:02 WBC MCV RDW Plt Count Lymph % (Auto) Norman % (Auto) Lymph # (Auto) Norman # (Auto) Seg Neutrophils % Seg Neutrophils # VBG pH Sodium Potassium 3.4 L Chloride Carbon Dioxide 14 L BUN 26 H Creatinine Glucose 147 H POC Glucose 153 H 166 H Phosphorus Magnesium Alkaline Phosphatase Ammonia Total Protein 02/03/21 02/03/21 02/04/21 23:11 23:57 00:13 WBC MCV RDW Plt Count Lymph % (Auto) Norman % (Auto) Lymph # (Auto) Norman # (Auto) Seg Neutrophils % Seg Neutrophils # VBG pH Sodium Potassium Chloride Carbon Dioxide BUN Creatinine Glucose POC Glucose 172 H 162 H 162 H Phosphorus Magnesium Alkaline Phosphatase Ammonia Total Protein 02/04/21 02/04/21 02/04/21 00:57 01:51 03:00 WBC MCV RDW Plt Count Lymph % (Auto) Norman % (Auto) Lymph # (Auto) Norman # (Auto) Seg Neutrophils % Seg Neutrophils # VBG pH Sodium Potassium Chloride Carbon Dioxide BUN Creatinine Glucose POC Glucose 151 H 146 H 161 H Phosphorus Magnesium Alkaline Phosphatase Ammonia Total Protein 02/04/21 02/04/21 02/04/21 03:57 04:37 04:52 WBC MCV RDW Plt Count Lymph % (Auto) Norman % (Auto) Lymph # (Auto) Norman # (Auto) Seg Neutrophils % Seg Neutrophils # VBG pH Sodium Potassium Chloride Carbon Dioxide BUN Creatinine Glucose POC Glucose 187 H 159 H Phosphorus Magnesium Alkaline Phosphatase Ammonia 61.0 H Total Protein 02/04/21 02/04/21 02/04/21 06:56 07:27 08:05 WBC MCV RDW Plt Count Lymph % (Auto) Norman % (Auto) Lymph # (Auto) Norman # (Auto) Seg Neutrophils % Seg Neutrophils # VBG pH Sodium Potassium Chloride Carbon Dioxide BUN Creatinine Glucose POC Glucose 132 H 134 H 132 H Phosphorus Magnesium Alkaline Phosphatase Ammonia Total Protein 02/04/21 02/04/21 02/04/21 08:34 08:57 10:15 WBC MCV RDW Plt Count Lymph % (Auto) Norman % (Auto) Lymph # (Auto) Norman # (Auto) Seg Neutrophils % Seg Neutrophils # VBG pH Sodium Potassium 3.2 L Chloride 109.1 H Carbon Dioxide 15 L BUN 22 H Creatinine Glucose 126 H POC Glucose 125 H 183 H Phosphorus Magnesium Alkaline Phosphatase Ammonia Total Protein 02/04/21 02/04/21 02/04/21 10:59 11:49 14:19 WBC MCV RDW Plt Count Lymph % (Auto) Norman % (Auto) Lymph # (Auto) Norman # (Auto) Seg Neutrophils % Seg Neutrophils # VBG pH Sodium Potassium 3.3 L Chloride 111.4 H Carbon Dioxide 17 L BUN Creatinine Glucose 117 H POC Glucose 204 H 168 H Phosphorus Magnesium Alkaline Phosphatase Ammonia Total Protein 02/04/21 02/04/21 02/04/21 15:04 15:53 17:29 WBC MCV RDW Plt Count Lymph % (Auto) Norman % (Auto) Lymph # (Auto) Norman # (Auto) Seg Neutrophils % Seg Neutrophils # VBG pH Sodium Potassium Chloride Carbon Dioxide BUN Creatinine Glucose POC Glucose 130 H 127 H 143 H Phosphorus Magnesium Alkaline Phosphatase Ammonia Total Protein 02/04/21 02/04/21 02/04/21 18:27 19:36 21:00 WBC MCV RDW Plt Count Lymph % (Auto) Norman % (Auto) Lymph # (Auto) Norman # (Auto) Seg Neutrophils % Seg Neutrophils # VBG pH Sodium Potassium Chloride Carbon Dioxide BUN Creatinine Glucose POC Glucose 156 H 157 H 137 H Phosphorus Magnesium Alkaline Phosphatase Ammonia Total Protein 02/04/21 02/04/21 02/04/21 21:58 22:52 22:57 WBC MCV RDW Plt Count Lymph % (Auto) Norman % (Auto) Lymph # (Auto) Norman # (Auto) Seg Neutrophils % Seg Neutrophils # VBG pH Sodium Potassium 3.4 L Chloride 107.6 H Carbon Dioxide 19 L BUN Creatinine Glucose 138 H POC Glucose 132 H 134 H Phosphorus Magnesium Alkaline Phosphatase Ammonia Total Protein 02/04/21 02/05/21 02/05/21 23:46 01:56 03:58 WBC MCV RDW Plt Count Lymph % (Auto) Norman % (Auto) Lymph # (Auto) Norman # (Auto) Seg Neutrophils % Seg Neutrophils # VBG pH Sodium Potassium Chloride Carbon Dioxide BUN Creatinine Glucose POC Glucose 149 H 166 H 172 H Phosphorus Magnesium Alkaline Phosphatase Ammonia Total Protein 02/05/21 02/05/21 02/05/21 05:48 07:12 07:53 WBC MCV RDW Plt Count Lymph % (Auto) Norman % (Auto) Lymph # (Auto) Norman # (Auto) Seg Neutrophils % Seg Neutrophils # VBG pH Sodium Potassium 3.0 L Chloride 108.6 H Carbon Dioxide 21 L BUN Creatinine Glucose 118 H POC Glucose 160 H 111 H Phosphorus Magnesium Alkaline Phosphatase Ammonia Total Protein 02/05/21 02/05/21 08:06 09:16 WBC MCV RDW Plt Count Lymph % (Auto) Norman % (Auto) Lymph # (Auto) Norman # (Auto) Seg Neutrophils % Seg Neutrophils # VBG pH Sodium Potassium Chloride Carbon Dioxide BUN Creatinine Glucose POC Glucose 107 H 149 H Phosphorus Magnesium Alkaline Phosphatase Ammonia Total Protein Allied health notes reviewed: nursing
[2021-02-06 14:29] LABS: Chol/HDL Ratio 3.85 %
[2021-02-06] MEDS: AMMONIUM LACTATE 12% LOTION TP SCH ×2 (21:42)
[2021-02-06] MEDS: risperiDONE 0.25 MG TAB PO SCH (21:43)
[2021-02-06] MEDS: LISINOPRIL 40 MG TAB PO SCH (21:43)
[2021-02-06] MEDS: traZODone 100 MG TAB PO SCH (21:44)
[2021-02-06] MEDS: AMITRIPTYLINE 25 MG TAB PO SCH (21:44)
[2021-02-06] MEDS: risperiDONE 1 MG TAB PO SCH (21:45)
[2021-02-06] MEDS: MIRTAZAPINE 15 MG TAB PO SCH (21:45)
[2021-02-07] MEDS: INSULIN NPH/REGULAR 70/30 INJ SUB-Q SCH ×2 (08:42→22:49)
[2021-02-07] MEDS: INSULIN LISPRO 100 UNIT/ML SUB-Q SCH ×4 (08:43→22:51)
--- NOTE | 2021-02-07 09:15 | Consultation ---
History of Present Illness - Reason for Consult Consult date: 02/06/21 Reason for consult: MHE Requesting physician: MICHAEL ANAYA - Chief Complaint Chief complaint: Confused - History of Present Psychiatric Illness PSYCH HPI Patient is a 45 year old disabled Male with past psy chiatric history of depression who was admitted to medical floor for medical management with subsequent cardiac consult placed for history of depression. Patient did admit to having depression but states he is no longer feeling depresed. Patient describes a good and stable mood, denies being depressed or excessively nervous. Patient eats and sleeps well. Patient denies panic attacks, recurrent n ightmares or flashbacks. Patient denies symptoms suggestive of OCD or PTSD. Patient denies hallucinations, paranoia, thought interference and no features suggestive of hypomania or paloma. Patiently completely denies suicidal or homicidal thoughts. PAST PSYCHIATRIC HISTORY Diagnoses: Depression Suicide attempts or Self-harm behavior: none Prior psychiatric hospitalizations: yes Substance Abuse history: none Previous psychiatric medications tried: Outpatient treatment: yes PAST MEDICAL HISTORY: Family Psychiatric History: None reported or documented SOCIAL HISTORY Marital Status: Living Arrangements: with partner Employment Status: [employer] Access to guns/weapons: none Education: college History of Abuse: none reported Legal History: none REVIEW OF SYSTEMS Constitutional: Negative for weight loss ENT: Negative for stridor Respiratory: Negative for cough or hemoptysis All other systems reviewed and are negative MENTAL STATUS EXAMINATION General Appearance and Behavior: Age appropriate, good hygiene, wearing appropriate clothes, good eye contact, cooperative polite with questioning. Cooperation: Participating/engaged Psychomotor Behavior: unremarkable and within normal limits Mood: Good Affect and affective range: congruent with mood Thought Process: Fluent/Logical, Thought Content: Within reality, Speech: Normal volume, Regular rate and rhythm, Intellectual Functioning: Average Suicidal Ideation: Denies SI Homicidal Ideation: Denies HI Impulse Control: Unimpaired Insight and Judgment: Normal insight and judgment, Memory: Normal, Attention: Normal, Orientation: Alert, oriented, Diagnoses: Treatment Plan MEDICATIONS: Risks, benefits and alternatives of medications discussed with the patient, questions answered and consent obtained from patient. PSYCHOTHERAPY: Supportive psychotherapy provided MEDICAL: Per primary team DELIRIUM PRECAUTIONS: Please re-orient patient frequently, keep lights on during the day, and minimize benzodiazepines and opiates as these medications could worsen patient's confusion. HUMAN RESOURCE ASSISTANT: DISPOSITION: Do Not Recommend acute inpatient psychiatric hospitalization at this time. Case discussed with Dr. Verdugo who agrees with current disposition LEGAL STATUS: Voluntary FOLLOW-UP: Will sign off Thank you for the consult. Please contact with any questions and/or concerns. Medications and Allergies Allergies Allergy/AdvReac Type Severity Reaction Status Date / Time No Known Allergies Allergy Unverified 10/30/15 11:38 Home Medications Medication Instructions Recorded Confirmed Last Taken Type traMADoL [Ultram 50 MG tab] 50 mg PO Q6HR PRN #20 tablet 10/30/15 02/05/21 Unknown Rx Amitriptyline [Elavil] 50 mg PO QHS 01/27/20 02/05/21 Unknown History Ammonium Lactate [Lac-Hydrin 1 applicatio TP BID 01/27/20 02/05/21 Unknown H istory Lotion] Escitalopram Oxalate [Lexapro] 20 mg PO DAILY 01/27/20 02/05/21 Unknown History Fluticasone [Flonase] 50 mcg IH DAILY 01/27/20 02/05/21 Unknown History Gabapentin 400 mg PO TID 01/27/20 02/05/21 Unknown History Insulin NPH Hum/Reg Insulin Hm 40 unit SQ QAM 01/27/20 02/05/21 Unknown History [HumuLIN 70-30 Vial] Insulin NPH Hum/Reg Insulin Hm 50 unit SQ QHS 01/27/20 02/05/21 Unknown History [Humulin 70-30 Vial] Loratadine (Nf) 10 mg PO DAILY 01/27/20 02/05/21 Unknown History Meloxicam [Mobic] 15 mg PO DAILY 01/27/20 02/05/21 Unknown History Metformin HCl [metFORMIN] 1,000 mg PO BID 01/27/20 02/05/21 Unknown History Mirtazapine [Remeron 45mg TAB] 45 mg PO QHS 01/27/20 02/05/21 Unknown History Omeprazole 20 mg PO BID 01/27/20 02/05/21 Unknown History amLODIPine [Norvasc] 10 mg PO DAILY 01/27/20 02/05/21 Unknown History cloNIDine [Catapres] 0.2 mg PO BID 01/27/20 02/05/21 Unknown History lisinopriL [Zestril TAB] 40 mg PO QDAY 01/27/20 02/05/21 Unknown History risperiDONE [RisperDAL] 2 mg PO QHS 01/27/20 02/05/21 Unknown History risperiDONE [risperiDONE ODT] 1 mg PO QAM 01/27/20 02/05/21 Unknown History traMADoL [Ultram] 50 mg PO Q6HR PRN 01/27/20 02/05/21 Unknown History traZODone [Desyrel] 100 mg PO QHS 01/27/20 02/05/21 Unknown History Cyclobenzaprine [Flexeril] 10 mg PO TID 02/05/21 02/05/21 Unknown History Hydroxyzine HCl [hydrOXYzine] 50 mg PO HS 02/05/21 02/05/21 Unknown History Mirtazapine [Remeron 45mg TAB] 45 mg PO QHS 02/05/21 02/05/21 Unknown History atenoloL [Tenormin] 50 mg PO DAILY 02/05/21 02/05/21 Unknown History traZODone [Desyrel] 50 mg PO QHS 02/05/21 02/05/21 Unknown History Active Meds: Active Medications Amitriptyline HCl (Amitriptyline 25 Mg Tab) 50 mg PO QHS [facility] Last Admin: 02/05/21 22:14 Dose: 50 mg Documented by: Amlodipine Besylate (Amlodipine 10 Mg Tab) 10 mg PO DAILY [facility] Last Admin: 02/06/21 09:46 Dose: 10 mg Documented by: Cetirizine HCl (Cetirizine 10 Mg Tab) 10 mg PO DAILY [facility] Last Admin: 02/06/21 09:46 Dose: 10 mg Documented by: Clonidine HCl (Clonidine 0.2 Mg Tab) 0.2 mg PO BID [facility] Last Admin: 02/06/21 09:47 Dose: 0.2 mg Documented by: Dextrose (Dextrose 50% In Water (25gm) 50 Ml Syringe) 50 ml IV Q30MIN PRN; Protocol PRN Reason: Hypoglycemia Escitalopram Oxalate (Escitalopram 10 Mg Tab) 20 mg PO DAILY [facility] Last Admin: 02/06/21 09:46 Dose: 20 mg Documented by: Fluticasone Propionate (Fluticasone Propionate Nasal [place] 16 Gm) 50 mcg NS DAILY [facility] Last Admin: 02/06/21 09:48 Dose: 50 mcg Documented by: Folic Acid (Folic Acid 1 Mg Tab) 1 mg PO QDAY [facility] Last Admin: 02/06/21 09:46 Dose: 1 mg Documented by: Gabapentin (Gabapentin 400 Mg Cap) 400 mg PO TID [facility] Last Admin: 02/06/21 08:41 Dose: 400 mg Documented by: Heparin Sodium (Porcine) (Heparin 5,000 Unit/1 Ml Vial) 5,000 unit SUB-Q Q12HR [facility] Last Admin: 02/06/21 09:48 Dose: 5,000 unit Documented by: Hydralazine HCl (Hydralazine 20 Mg/1 Ml Inj) 5 mg IV Q4H PRN PRN Reason: HYPERTENSION Last Admin: 02/06/21 05:56 Dose: 5 mg Documented by: Sodium Chloride (Nacl 0.9% 1000 Ml) 1,000 mls @ 150 mls/hr IV DIRECT [facility] Last Admin: 02/06/21 05:30 Dose: 150 mls/hr Documented by: Insulin Human Isoph/Insulin Regular (Insulin Nph/Regular 70/30 Inj) 40 unit SUB-Q QAMDIAB [facility] Last Admin: 02/06/21 08:41 Dose: 40 unit Documented by: Insulin Human Isoph/Insulin Regular (Insulin Nph/Regular 70/30 Inj) 50 unit [facility] Last Admin: 02/05/21 23:35 Dose: 50 unit Documented by: Insulin Human Lispro (Insulin Lispro 100 Unit/Ml) 0 unit SUB-Q [facility]; Protocol Last Admin: 02/06/21 08:43 Dose: 2 unit Documented by: Lactic Acid (Ammonium Lactate 12% Lotion) 1 applic TP BID [facility] Last Admin: 02/05/21 22:21 Dose: 1 applic Documented by: Lisinopril (Lisinopril 40 Mg Tab) 40 mg PO QDAY [facility] Last Admin: 02/05/21 09:54 Dose: 40 mg Documented by: Lorazepam (Lorazepam 2 Mg/Ml Vial) 2 mg IV Q1HR PRN PRN Reason: CIWA-Ar 8-15 Last Admin: 02/05/21 01:53 Dose: 2 mg Documented by: Mirtazapine (Mirtazapine 15 Mg Tab) 45 mg PO QHS [facility] Last Admin: 02/05/21 22:15 Dose: 45 mg Documented by: Pantoprazole Sodium (Pantoprazole 20 Mg Tab) 20 mg PO BID [facility] Last Admin: 02/06/21 09:46 Dose: 20 mg Documented by: Risperidone (Risperidone 1 Mg Tab) 1 mg PO QHS [facility] Last Admin: 02/05/21 22:15 Dose: 1 mg Documented by: Risperidone (Risperidone 0.25 Mg Tab) 0.5 mg PO QAM [facility] Last Admin: 02/05/21 09:52 Dose: 0.5 mg Documented by: Sodium Chloride (Sodium Chloride 0.9% 10 Ml Flush Syringe) 10 ml IV BID [facility] Last Admin: 02/05/21 22:13 Dose: 10 ml Documented by: Sodium Chloride (Sodium Chloride 0.9% 10 Ml Flush Syringe) 10 ml IV PRN PRN PRN Reason: LINE FLUSH Trazodone HCl (Trazodone 100 Mg Tab) 100 mg PO QHS [facility] Last Admin: 02/05/21 22:15 Dose: 100 mg Documented by: Mental Status Exam - Vital signs Last Vital Signs Temp 97.6 F 02/06/21 03:37 Pulse 98 H 02/06/21 10:00 Resp 20 02/06/21 10:00 BP 157/92 02/06/21 09:47 Pulse Ox 98 02/06/21 03:37 Results Result Diagrams: 02/06/21 04:40 02/06/21 04:40 Abnormal lab results 02/05/21 02/05/21 02/05/21 Range/Units 10:15 11:00 13:07 Hgb (11.8-15.2) gm/dl Hct (35.5-45.6) % RDW (13.2-15.2) % Plt Count (140-440) K/mm3 Potassium (3.6-5.0) mmol/L Chloride (98-107) mmol/L Glucose (75-100) mg/dL POC Glucose 167 H 209 H 255 H (70-105) mg/dL 02/05/21 02/05/21 02/06/21 Range/Units 16:23 21:36 04:40 Hgb 11.0 L (11.8-15.2) gm/dl Hct 32.7 L (35.5-45.6) % RDW 16.0 H (13.2-15.2) % Plt Count 441 H (140-440) K/mm3 Potassium (3.6-5.0) mmol/L Chloride (98-107) mmol/L Glucose (75-100) mg/dL POC Glucose 220 H 245 H (70-105) mg/dL 02/06/21 02/06/21 Range/Units 04:40 08:40 Hgb (11.8-15.2) gm/dl Hct (35.5-45.6) % RDW (13.2-15.2) % Plt Count (140-440) K/mm3 Potassium 3.2 L (3.6-5.0) mmol/L Chloride 108.3 H (98-107) mmol/L Glucose 203 H (75-100) mg/dL POC Glucose 196 H (70-105) mg/dL All other labs normal.
[2021-02-07] MEDS: ESCITALOPRAM 10 MG TAB PO SCH (09:39)
[2021-02-07] MEDS: FLUTICASONE PROPIONATE NASAL SPRAY 16 GM NS SCH (09:39)
[2021-02-07] MEDS: cloNIDine 0.2 MG TAB PO SCH ×2 (09:40→22:45)
[2021-02-07] MEDS: CETIRIZINE 10 MG TAB PO SCH (09:40)
[2021-02-07] MEDS: HEPARIN 5,000 UNIT/1 ML VIAL SUB-Q SCH ×2 (09:41→22:49)
[2021-02-07] MEDS: amLODIPine 10 MG TAB PO SCH (09:41)
[2021-02-07] MEDS: FOLIC ACID 1 MG TAB PO SCH (09:41)
[2021-02-07] MEDS: risperiDONE 0.25 MG TAB PO SCH (09:41)
[2021-02-07] MEDS: PANTOPRAZOLE 20 MG TAB PO SCH ×2 (09:44→22:44)
[2021-02-07] MEDS: GABAPENTIN 400 MG CAP PO SCH ×3 (09:44→21:25)
[2021-02-07] MEDS: LISINOPRIL 40 MG TAB PO SCH (09:47)
--- NOTE | 2021-02-07 10:38 | Progress Note ---
Assessment and Plan Assessment and plan: 45 YO Male with HTN, DM, HLD, Depression, ETOH Dependence presents to ED for evaluation. Patient is confused with diminished cognition at the time of my evaluation and is unable to provide detailed history. Patient history provided by EMS staff as well as ED staff. Patient staff reports that patient was found to have confusion today as per family members. EMS was notified and upon arrival the patient was found to be in distress with an elevated blood glucose of 528. The patient was subsequently transported to [facility] for further care and evaluation of the aforementioned symptoms. The patient was seen and evaluated in the emergency department. The patient was found to have DKA, metabolic acidosis, DREW with ATN as well as metabolic encephalopathy. The patient was admitted to ICU and initiated on DKA protocol. No further history is obtainable. The patient has diminished cognition at this time my evaluation but has a positive gag reflex and is able to protect his airway without difficulty. No medication listed at time of admission for reconciliation. Prior admission on 01/27/2020 reviewed. 02/03: Gap is almost close, continue current management, continue management for ETOH Withdrawal. Updating family. 02/04: Continue supportive care, will give a bolus of fluid, give additional po tassium supplementation, continue insulin drip hopefully closes soon. Aspiration precaution. 02/05: Gap closed, transition to insulin sliding scale and AM/PM dose, awaiting yakov woodruff. still drowsy but much improved compared to yesterday. Replace K. 02/06: Noted to have ventricular pause for 2 seconds no other incident EKG obtained. Echocardiogram ordered. Cardiology consulted. Still awaiting psych evaluation anticipate discharge in 24 hours if no further cardiac work-up. 02/07: Cardiology input noted. Patient will obtain echocardiogram and a stress test in a.m. ventricular pause noted prior likely secondary to physiologic condition. Continue current management. Anticipate discharge in a.m. (1) DKA (diabetic ketoacidoses) Current Visit: Yes Status: Acute Qualifiers: Diabetes mellitus type: type 1 Plan to address problem: DKA protocol: Patient admitted to ICU and initiated on DKA protocol. Insulin drip, IV fluid resuscitation therapy, monitor urine output every shift, serial BMP, monitor anion gap, potassium repletion as per protocol. (2) Metabolic acidosis Current Visit: Yes Status: Acute Plan to address problem: IV fluid resuscitation therapy, serial lactic acid level, supportive care. (3) Metabolic encephalopathy Current Visit: Yes Status: Acute Plan to address problem: CT head-negative, neuro check, seizure precautions, supportive care. Treat DKA. (4) Alcohol dependence with mild withdrawal Current Visit: Yes Status: Acute Plan to address problem: Thiamine, folic acid, multivitamin, CIWA protocol, banana bag. (5) Hypokalemia Replace (6) Hyponatremia (7) DREW with ATN with vasomotor nephropathyresolved DVT prophylaxis Current Visit: Yes Status: Acute Plan to address problem: SCDs bilateral lower extremities while in bed, patient is ambulatory. History Interval history: Patient seen and examined, awake and responsive no acute issues noted at this time. No further cardiac arrhythmias noted. Hospitalist Physical - Physical exam Narrative exam: GENERAL: The patient is well-developed well-nourished. HENT: Normocephalic. Atraumatic. Patient has moist mucous membranes. EYES: Extraocular motions are intact. NECK: Supple. Trachea is midline. CHEST/LUNGS: Clear to auscultation. HEART/CARDIOVASCULAR: Regular. There is no tachycardia. There is no murmur. ABDOMEN: Abdomen is soft, nontender. Patient has normal bowel sounds. There is no abdominal distention. SKIN: Skin is warm and dry. NEURO: Awake alert oriented no focal abnormalities noted. Follows commands. Speech is normal. MUSCULOSKELETAL: There is no tenderness or deformity. There is no limitation range of motion. - Constitutional Vitals: Temp Pulse Resp BP Pulse Ox 98.5 F 93 H 20 150/90 97 02/07/21 04:17 02/07/21 09:47 02/07/21 10:23 02/07/21 09:47 02/07/21 04:17 General appearance: Present: no acute distress HEART Score - HEART Score Troponin: Troponin T < 0.010 ng/mL (0.00-0.029) 02/02/21 19:16 Results - Labs CBC & Chem 7: 02/06/21 04:40 02/06/21 04:40 Labs: Laboratory Last Values WBC 5.5 K/mm3 (4.5-11.0) 02/06/21 04:40 RBC 3.67 M/mm3 (3.65-5.03) 02/06/21 04:40 Hgb 11.0 gm/dl (11.8-15.2) L 02/06/21 04:40 Hct 32.7 % (35.5-45.6) L 02/06/21 04:40 MCV 89 fl (84-94) 02/06/21 04:40 MCH 30 pg (28-32) 02/06/21 04:40 MCHC 34 % (32-34) 02/06/21 04:40 RDW 16.0 % (13.2-15.2) H 02/06/21 04:40 Plt Count 441 K/mm3 (140-440) H 02/06/21 04:40 Lymph % (Auto) 5.6 % (13.4-35.0) L 02/02/21 19:06 [place] % (Auto) 8.8 % (0.0-7.3) H 02/02/21 19:06 Eos % (Auto) 0.0 % (0.0-4.3) 02/02/21 19:06 Baso % (Auto) 0.7 % (0.0-1.8) 02/02/21 19:06 Lymph # (Auto) 0.6 K/mm3 (1.2-5.4) L 02/02/21 19:06 [place] # (Auto) 1.0 K/mm3 (0.0-0.8) H 02/02/21 19:06 Eos # (Auto) 0.0 K/mm3 (0.0-0.4) 02/02/21 19:06 Baso # (Auto) 0.1 K/mm3 (0.0-0.1) 02/02/21 19:06 Seg Neutrophils % 84.9 % (40.0-70.0) H 02/02/21 19:06 Seg Neutrophils # 9.5 K/mm3 (1.8-7.7) H 02/02/21 19:06 VBG pH 7.097 (7.320-7.420) L* 02/02/21 19:06 Sodium 143 mmol/L (137-145) 02/06/21 04:40 Potassium 3.2 mmol/L (3.6-5.0) L 02/06/21 04:40 Chloride 108.3 mmol/L (98-107) H 02/06/21 04:40 Carbon Dioxide 22 mmol/L (22-30) 02/06/21 04:40 Anion Gap 16 mmol/L 02/06/21 04:40 BUN 9 mg/dL (9-20) 02/06/21 04:40 Creatinine 0.8 mg/dL (0.8-1.3) 02/06/21 04:40 Estimated GFR > 60 ml/min 02/06/21 04:40 BUN/Creatinine Ratio 11 % 02/06/21 04:40 Glucose 203 mg/dL (75-100) H 02/06/21 04:40 POC Glucose 161 mg/dL (70-105) H 02/07/21 08:19 Ketones Quantitative Moderate (Negative) 02/02/21 19:06 Calcium 8.8 mg/dL (8.4-10.2) 02/06/21 04:40 Phosphorus 5.60 mg/dL (2.5-4.5) H 02/02/21 20:06 Magnesium 2.80 mg/dL (1.7-2.3) H 02/02/21 20:06 Total Bilirubin 0.40 mg/dL (0.1-1.2) 02/02/21 19:06 AST 25 units/L (5-40) 02/02/21 19:06 ALT 23 units/L (7-56) 02/02/21 19:06 Alkaline Phosphatase 137 units/L (35-129) H 02/02/21 19:06 Ammonia 61.0 umol/L (25-60) H 02/04/21 04:37 Troponin T < 0.010 ng/mL (0.00-0.029) 02/02/21 19:16 Total Protein 9.2 g/dL (6.3-8.2) H 02/02/21 19:06 Albumin 4.3 g/dL (3.9-5) 02/02/21 19:06 Albumin/Globulin Ratio 0.9 % 02/02/21 19:06 Triglycerides 142 mg/dL (2-149) 02/06/21 14:15 Cholesterol 108 mg/dL (50-199) 02/06/21 14:15 LDL Cholesterol Direct 48 mg/dL (50-130) L 02/06/21 14:15 HDL Cholesterol 28 mg/dL (40-59) L 02/06/21 14:15 Cholesterol/HDL Ratio 3.85 % 02/06/21 14:15 Procalcitonin 0.26 ng/mL (<0.15) 02/03/21 21:10 Urine Color Straw (Yellow) 02/02/21 20:12 Urine Turbidity Clear (Clear) 02/02/21 20:12 Urine pH 5.0 (5.0-7.0) 02/02/21 20:12 Ur Specific [place] 1.017 (1.003-1.030) 02/02/21 20:12 Urine Protein 30 mg/dl mg/dL (Negative) 02/02/21 20:12 Urine Glucose (UA) >=500 mg/dL (Negative) 02/02/21 20:12 Urine Ketones 80 mg/dL (Negative) 02/02/21 20:12 Urine Blood Mod (Negative) 02/02/21 20:12 Urine Nitrite Neg (Negative) 02/02/21 20:12 Urine Bilirubin Neg (Negative) 02/02/21 20:12 Urine Urobilinogen < 2.0 mg/dL (<2.0) 02/02/21 20:12 Ur Leukocyte Esterase Neg (Negative) 02/02/21 20:12 Urine WBC (Auto) < 1.0 /HPF (0.0-6.0) 02/02/21 20:12 Urine RBC (Auto) 1.0 /HPF (0.0-6.0) 02/02/21 20:12 U Epithel Cells (Auto) < 1.0 /HPF (0-13.0) 02/02/21 20:12 Urine Mucus Few /HPF 02/02/21 20:12 Urine Opiates Screen Negative 02/02/21 20:12 Urine Methadone Screen Negative 02/02/21 20:12 Ur Barbiturates Screen Negative 02/02/21 20:12 Ur Phencyclidine Scrn Negative 02/02/21 20:12 Ur Amphetamines Screen Negative 02/02/21 20:12 U Benzodiazepines Scrn Negative 02/02/21 20:12 Urine Cocaine Screen Positive 02/02/21 20:12 U Marijuana (THC) Screen Negative 02/02/21 20:12 Drugs of Abuse Note Disclamer 02/02/21 20:12 Plasma/Serum Alcohol < 0.01 % (0-0.07) 02/02/21 19:06 Coronavirus (PCR) Negative (Negative) 02/03/21 09:15 Olivo/IV: Voiding Method Urinal Active Medications - Current Medications Current Medications: Generic Name Dose Route Start Last Admin Trade Name Freq PRN Reason Stop Dose Admin Amitriptyline HCl 50 mg 02/02/21 22:00 02/06/21 21:44 Amitriptyline 25 Mg Tab PO 50 mg QHS KENNETH Administration Amlodipine Besylate 10 mg 02/03/21 10:00 02/07/21 09:41 Amlodipine 10 Mg Tab PO 10 mg DAILY KENNETH Administration Cetirizine HCl 10 mg 02/03/21 10:00 02/07/21 09:40 Cetirizine 10 Mg Tab PO 10 mg DAILY KENNETH Administration Clonidine HCl 0.2 mg 02/02/21 22:00 02/07/21 09:40 Clonidine 0.2 Mg Tab PO 0.2 mg BID KENNETH Administration Dextrose 50 ml 02/05/21 11:30 Dextrose 50% In Water (25gm) 50 Ml Syringe IV Q30MIN PRN Hypoglycemia Protocol Escitalopram Oxalate 20 mg 02/03/21 10:00 02/07/21 09:39 Escitalopram 10 Mg Tab PO 20 mg DAILY KENNETH Administration Fluticasone Propionate 50 mcg 02/06/21 10:00 02/07/21 09:39 Fluticasone Propionate Nasal [place] 16 Gm NS 50 mcg DAILY KENNETH Administration Folic Acid 1 mg 02/03/21 10:00 02/07/21 09:41 Folic Acid 1 Mg Tab PO 1 mg QDAY KENNETH Administration Gabapentin 400 mg 02/03/21 08:00 02/07/21 09:44 Gabapentin 400 Mg Cap PO 400 mg TID KENNETH Administration Heparin Sodium (Porcine) 5,000 unit 02/03/21 22:00 02/07/21 09:41 Heparin 5,000 Unit/1 Ml Vial SUB-Q 5,000 unit Q12HR KENNETH Administration Hydralazine HCl 5 mg 02/06/21 05:04 02/06/21 05:56 Hydralazine 20 Mg/1 Ml Inj IV 5 mg Q4H PRN Administration HYPERTENSION Sodium Chloride 1,000 mls @ 150 mls/hr 02/02/21 20:15 02/06/21 05:30 Nacl 0.9% 1000 Ml IV 150 mls/hr DIRECT KENNETH Administration Insulin Human Isoph/Insulin Regular 40 unit 02/06/21 08:00 02/07/21 08:42 Insulin Nph/Regular 70/30 Inj SUB-Q 40 unit QAMDIAB KENNETH Administration Insulin Human Isoph/Insulin Regular 50 unit 02/05/21 22:00 02/06/21 21:58 Insulin Nph/Regular 70/30 Inj SUB-Q 50 unit QHS KENNETH Administration Insulin Human Lispro 0 unit 02/05/21 11:30 02/07/21 08:43 Insulin Lispro 100 Unit/Ml SUB-Q 2 unit ACHS KENNETH Administration Protocol Lactic Acid 1 applic 02/02/21 22:00 02/06/21 21:42 Ammonium Lactate 12% Lotion TP 1 applic BID KENNETH Administration Lisinopril 40 mg 02/03/21 10:00 02/07/21 09:47 Lisinopril 40 Mg Tab PO 40 mg QDAY KENNETH Administration Lorazepam 2 mg 02/02/21 20:35 02/05/21 01:53 Lorazepam 2 Mg/Ml Vial IV 2 mg Q1HR PRN Administration MARSHA-Shad 8-15 Mirtazapine 45 mg 02/02/21 22:00 02/06/21 21:45 Mirtazapine 15 Mg Tab PO 45 mg QHS KENNETH Administration Pantoprazole Sodium 20 mg 02/02/21 22:00 02/07/21 09:44 Pantoprazole 20 Mg Tab PO 20 mg BID KENNETH Administration Risperidone 1 mg 02/02/21 22:00 02/06/21 21:45 Risperidone 1 Mg Tab PO 1 mg QHS KENNETH Administration Risperidone 0.5 mg 02/03/21 10:00 02/07/21 09:41 Risperidone 0.25 Mg Tab PO 0.5 mg QAM KENNETH Administration Sodium Chloride 10 ml 02/02/21 22:00 02/06/21 21:45 Sodium Chloride 0.9% 10 Ml Flush Syringe IV 10 ml BID KENNETH Administration Sodium Chloride 10 ml 02/02/21 20:06 Sodium Chloride 0.9% 10 Ml Flush Syringe IV PRN PRN LINE FLUSH Trazodone HCl 100 mg 02/02/21 22:00 02/06/21 21:44 Trazodone 100 Mg Tab PO 100 mg QHS KENNETH Administration
--- NOTE | 2021-02-07 15:39 | Progress Note ---
Assessment and Plan Diabetic ketoacidosis. Acute toxic metabolic encephalopathy. Acute kidney injury. History of alcohol abuse. Metabolic acidosis. Leukocytosis. Elevated serum ammonia level - aspiration precautions while on CIWA protocol - glycemic controol with SSI for target BG < 180 mg/dl - continue care as below otherwise; - prn supplemental oxygen to keep O2 sats > 90% - prn Bronchodilators (MIRTHA) with pulm hygiene per RT - continue CIWA protocol - volume resuscitation and follow electrolytes - continue to avoid nephrotoxins, renally dose all medications - continue mobility protocols to prevent pressure ulcers - PT/OT as tolerated - Wound care per RN/WCT - home oxygen evaluation at discharge - GI & VTE prophylaxis - Flu & pneumovax per protocol - prn analgesia per pain score - continue other care per attending / other consultants ... re-evaluate in am & prn Subjective Date of service: 02/06/21 Principal diagnosis: DKA; Ac. Encephalopathy; Alcohol abuse; Metabolic acidosis; hyperammonemia Interval history: Patient is seen today for: Diabetic ketoacidosis; Acute toxic metabolic encephalopathy; History of alcohol abuse; Metabolic acidosis; hyperammonemia Seen and examined at bedside; 24hour events reviewed; nursing and respiratory care staff consulted; no adverse overnight events reported to me; resting peacefully in bed; remains on CIWA protocol and asleep at my examination Objective Vital Signs - 12hr 02/06/21 02/06/21 02/06/21 03:37 05:56 09:46 Temperature 97.6 F Pulse Rate 77 98 H Respiratory 19 Rate Blood Pressure 174/94 174/94 157/92 O2 Sat by Pulse 98 Oximetry 02/06/21 02/06/21 09:47 10:00 Temperature Pulse Rate 98 H 98 H Respiratory 20 Rate Blood Pressure 157/92 O2 Sat by Pulse Oximetry Constitutional: no acute distress, other (middle aged obese male with normal respiratory effort at rest) Eyes: non-icteric ENT: oropharynx moist Neck: supple, no lymphadenopathy, no JVD Effort: normal Ascultation: Bilateral: clear, other (snoring) Percussion: Bilateral: not dull Cardiovascular: regular rate and rhythm Gastrointestinal: normoactive bowel sounds, soft, non-tender, non-distended Integumentary: rash Extremities: no cyanosis, no edema, pulses normal, no ischemia or petechiae Neurologic: non-focal exam (grossly), pupils equal and round, unable to assess Psychiatric: other (unable to assess re: AMS) CBC and BMP: 02/06/21 04:40 02/06/21 04:40 Abnormal lab findings: Abnormal Labs 02/02/21 02/02/21 02/02/21 19:06 19:06 19:06 WBC 11.2 H Hgb Hct MCV 96 H RDW 16.3 H Plt Count 454 H Lymph % (Auto) 5.6 L [place] % (Auto) 8.8 H Lymph # (Auto) 0.6 L [place] # (Auto) 1.0 H Seg Neutrophils % 84.9 H Seg Neutrophils # 9.5 H VBG pH 7.097 L* Sodium 126 L Potassium Chloride 87.3 L Carbon Dioxide 4 L* BUN 45 H Creatinine 1.7 H Glucose 531 H* POC Glucose Phosphorus Magnesium Alkaline Phosphatase 137 H Ammonia Total Protein 9.2 H 02/02/21 02/02/21 02/02/21 19:06 20:06 20:06 WBC Hgb Hct MCV RDW Plt Count Lymph % (Auto) [place] % (Auto) Lymph # (Auto) [place] # (Auto) Seg Neutrophils % Seg Neutrophils # VBG pH Sodium 127 L Potassium Chloride 87.6 L Carbon Dioxide 3 L* BUN 45 H Creatinine 1.7 H Glucose 499 H POC Glucose Phosphorus 5.60 H Magnesium 2.80 H Alkaline Phosphatase Ammonia 97.0 H Total Protein 02/02/21 02/02/21 02/02/21 22:27 22:45 23:31 WBC Hgb Hct MCV RDW Plt Count Lymph % (Auto) [place] % (Auto) Lymph # (Auto) [place] # (Auto) Seg Neutrophils % Seg Neutrophils # VBG pH Sodium 134 L D Potassium Chloride 93.9 L Carbon Dioxide 3 L* BUN 47 H Creatinine 1.7 H Glucose 383 H POC Glucose 366 H 252 H Phosphorus Magnesium Alkaline Phosphatase Ammonia Total Protein 02/03/21 02/03/21 02/03/21 00:13 00:45 01:37 WBC Hgb Hct MCV RDW Plt Count Lymph % (Auto) [place] % (Auto) Lymph # (Auto) [place] # (Auto) Seg Neutrophils % Seg Neutrophils # VBG pH Sodium Potassium Chloride 97.5 L Carbon Dioxide 7 L* BUN 47 H Creatinine 1.6 H Glucose 239 H POC Glucose 209 H 156 H Phosphorus Magnesium Alkaline Phosphatase Ammonia Total Protein 02/03/21 02/03/21 02/03/21 02:37 03:47 04:32 WBC Hgb Hct MCV RDW Plt Count Lymph % (Auto) [place] % (Auto) Lymph # (Auto) [place] # (Auto) Seg Neutrophils % Seg Neutrophils # VBG pH Sodium Potassium 3.5 L Chloride Carbon Dioxide 9 L* BUN 43 H Creatinine 1.4 H Glucose 186 H POC Glucose 156 H 190 H Phosphorus Magnesium Alkaline Phosphatase Ammonia Total Protein 02/03/21 02/03/21 02/03/21 06:44 09:34 10:01 WBC Hgb Hct MCV RDW Plt Count Lymph % (Auto) [place] % (Auto) Lymph # (Auto) [place] # (Auto) Seg Neutrophils % Seg Neutrophils # VBG pH Sodium Potassium Chloride Carbon Dioxide BUN Creatinine Glucose POC Glucose 168 H 173 H 180 H Phosphorus Magnesium Alkaline Phosphatase Ammonia Total Protein 02/03/21 02/03/21 02/03/21 11:21 12:08 12:53 WBC Hgb Hct MCV RDW Plt Count Lymph % (Auto) [place] % (Auto) Lymph # (Auto) [place] # (Auto) Seg Neutrophils % Seg Neutrophils # VBG pH Sodium Potassium Chloride Carbon Dioxide BUN Creatinine Glucose POC Glucose 183 H 153 H 116 H Phosphorus Magnesium Alkaline Phosphatase Ammonia Total Protein 02/03/21 02/03/21 02/03/21 13:15 14:05 15:18 WBC Hgb Hct MCV RDW Plt Count Lymph % (Auto) [place] % (Auto) Lymph # (Auto) [place] # (Auto) Seg Neutrophils % Seg Neutrophils # VBG pH Sodium Potassium 3.0 L Chloride Carbon Dioxide 14 L BUN 35 H Creatinine 1.4 H Glucose 117 H POC Glucose 148 H 164 H Phosphorus Magnesium Alkaline Phosphatase Ammonia Total Protein 02/03/21 02/03/21 02/03/21 16:07 17:25 17:59 WBC Hgb Hct MCV RDW Plt Count Lymph % (Auto) [place] % (Auto) Lymph # (Auto) [place] # (Auto) Seg Neutrophils % Seg Neutrophils # VBG pH Sodium Potassium Chloride Carbon Dioxide BUN Creatinine Glucose POC Glucose 184 H 146 H 119 H Phosphorus Magnesium Alkaline Phosphatase Ammonia Total Protein 02/03/21 02/03/21 02/03/21 18:58 19:51 20:56 WBC Hgb Hct MCV RDW Plt Count Lymph % (Auto) [place] % (Auto) Lymph # (Auto) [place] # (Auto) Seg Neutrophils % Seg Neutrophils # VBG pH Sodium Potassium Chloride Carbon Dioxide BUN Creatinine Glucose POC Glucose 141 H 156 H 149 H Phosphorus Magnesium Alkaline Phosphatase Ammonia Total Protein 02/03/21 02/03/21 02/03/21 21:06 21:10 22:02 WBC Hgb Hct MCV RDW Plt Count Lymph % (Auto) [place] % (Auto) Lymph # (Auto) [place] # (Auto) Seg Neutrophils % Seg Neutrophils # VBG pH Sodium Potassium 3.4 L Chloride Carbon Dioxide 14 L BUN 26 H Creatinine Glucose 147 H POC Glucose 153 H 166 H Phosphorus Magnesium Alkaline Phosphatase Ammonia Total Protein 02/03/21 02/03/21 02/04/21 23:11 23:57 00:13 WBC Hgb Hct MCV RDW Plt Count Lymph % (Auto) [place] % (Auto) Lymph # (Auto) [place] # (Auto) Seg Neutrophils % Seg Neutrophils # VBG pH Sodium Potassium Chloride Carbon Dioxide BUN Creatinine Glucose POC Glucose 172 H 162 H 162 H Phosphorus Magnesium Alkaline Phosphatase Ammonia Total Protein 02/04/21 02/04/21 02/04/21 00:57 01:51 03:00 WBC Hgb Hct MCV RDW Plt Count Lymph % (Auto) [place] % (Auto) Lymph # (Auto) [place] # (Auto) Seg Neutrophils % Seg Neutrophils # VBG pH Sodium Potassium Chloride Carbon Dioxide BUN Creatinine Glucose POC Glucose 151 H 146 H 161 H Phosphorus Magnesium Alkaline Phosphatase Ammonia Total Protein 02/04/21 02/04/21 02/04/21 03:57 04:37 04:52 WBC Hgb Hct MCV RDW Plt Count Lymph % (Auto) [place] % (Auto) Lymph # (Auto) [place] # (Auto) Seg Neutrophils % Seg Neutrophils # VBG pH Sodium Potassium Chloride Carbon Dioxide BUN Creatinine Glucose POC Glucose 187 H 159 H Phosphorus Magnesium Alkaline Phosphatase Ammonia 61.0 H Total Protein 02/04/21 02/04/21 02/04/21 06:56 07:27 08:05 WBC Hgb Hct MCV RDW Plt Count Lymph % (Auto) [place] % (Auto) Lymph # (Auto) [place] # (Auto) Seg Neutrophils % Seg Neutrophils # VBG pH Sodium Potassium Chloride Carbon Dioxide BUN Creatinine Glucose POC Glucose 132 H 134 H 132 H Phosphorus Magnesium Alkaline Phosphatase Ammonia Total Protein 02/04/21 02/04/21 02/04/21 08:34 08:57 10:15 WBC Hgb Hct MCV RDW Plt Count Lymph % (Auto) [place] % (Auto) Lymph # (Auto) [place] # (Auto) Seg Neutrophils % Seg Neutrophils # VBG pH Sodium Potassium 3.2 L Chloride 109.1 H Carbon Dioxide 15 L BUN 22 H Creatinine Glucose 126 H POC Glucose 125 H 183 H Phosphorus Magnesium Alkaline Phosphatase Ammonia Total Protein 02/04/21 02/04/21 02/04/21 10:59 11:49 14:19 WBC Hgb Hct MCV RDW Plt Count Lymph % (Auto) [place] % (Auto) Lymph # (Auto) [place] # (Auto) Seg Neutrophils % Seg Neutrophils # VBG pH Sodium Potassium 3.3 L Chloride 111.4 H Carbon Dioxide 17 L BUN Creatinine Glucose 117 H POC Glucose 204 H 168 H Phosphorus Magnesium Alkaline Phosphatase Ammonia Total Protein 02/04/21 02/04/21 02/04/21 15:04 15:53 17:29 WBC Hgb Hct MCV RDW Plt Count Lymph % (Auto) [place] % (Auto) Lymph # (Auto) [place] # (Auto) Seg Neutrophils % Seg Neutrophils # VBG pH Sodium Potassium Chloride Carbon Dioxide BUN Creatinine Glucose POC Glucose 130 H 127 H 143 H Phosphorus Magnesium Alkaline Phosphatase Ammonia Total Protein 02/04/21 02/04/21 02/04/21 18:27 19:36 21:00 WBC Hgb Hct MCV RDW Plt Count Lymph % (Auto) [place] % (Auto) Lymph # (Auto) [place] # (Auto) Seg Neutrophils % Seg Neutrophils # VBG pH Sodium Potassium Chloride Carbon Dioxide BUN Creatinine Glucose POC Glucose 156 H 157 H 137 H Phosphorus Magnesium Alkaline Phosphatase Ammonia Total Protein 02/04/21 02/04/21 02/04/21 21:58 22:52 22:57 WBC Hgb Hct MCV RDW Plt Count Lymph % (Auto) [place] % (Auto) Lymph # (Auto) [place] # (Auto) Seg Neutrophils % Seg Neutrophils # VBG pH Sodium Potassium 3.4 L Chloride 107.6 H Carbon Dioxide 19 L BUN Creatinine Glucose 138 H POC Glucose 132 H 134 H Phosphorus Magnesium Alkaline Phosphatase Ammonia Total Protein 02/04/21 02/05/21 02/05/21 23:46 01:56 03:58 WBC Hgb Hct MCV RDW Plt Count Lymph % (Auto) [place] % (Auto) Lymph # (Auto) [place] # (Auto) Seg Neutrophils % Seg Neutrophils # VBG pH Sodium Potassium Chloride Carbon Dioxide BUN Creatinine Glucose POC Glucose 149 H 166 H 172 H Phosphorus Magnesium Alkaline Phosphatase Ammonia Total Protein 02/05/21 02/05/21 02/05/21 05:48 07:12 07:53 WBC Hgb Hct MCV RDW Plt Count Lymph % (Auto) [place] % (Auto) Lymph # (Auto) [place] # (Auto) Seg Neutrophils % Seg Neutrophils # VBG pH Sodium Potassium 3.0 L Chloride 108.6 H Carbon Dioxide 21 L BUN Creatinine Glucose 118 H POC Glucose 160 H 111 H Phosphorus Magnesium Alkaline Phosphatase Ammonia Total Protein 02/05/21 02/05/21 02/05/21 08:06 09:16 10:15 WBC Hgb Hct MCV RDW Plt Count Lymph % (Auto) [place] % (Auto) Lymph # (Auto) [place] # (Auto) Seg Neutrophils % Seg Neutrophils # VBG pH Sodium Potassium Chloride Carbon Dioxide BUN Creatinine Glucose POC Glucose 107 H 149 H 167 H Phosphorus Magnesium Alkaline Phosphatase Ammonia Total Protein 02/05/21 02/05/21 02/05/21 11:00 13:07 16:23 WBC Hgb Hct MCV RDW Plt Count Lymph % (Auto) [place] % (Auto) Lymph # (Auto) [place] # (Auto) Seg Neutrophils % Seg Neutrophils # VBG pH Sodium Potassium Chloride Carbon Dioxide BUN Creatinine Glucose POC Glucose 209 H 255 H 220 H Phosphorus Magnesium Alkaline Phosphatase Ammonia Total Protein 02/05/21 02/06/21 02/06/21 21:36 04:40 04:40 WBC Hgb 11.0 L Hct 32.7 L MCV RDW 16.0 H Plt Count 441 H Lymph % (Auto) [place] % (Auto) Lymph # (Auto) [place] # (Auto) Seg Neutrophils % Seg Neutrophils # VBG pH Sodium Potassium 3.2 L Chloride 108.3 H Carbon Dioxide BUN Creatinine Glucose 203 H POC Glucose 245 H Phosphorus Magnesium Alkaline Phosphatase Ammonia Total Protein 02/06/21 08:40 WBC Hgb Hct MCV RDW Plt Count Lymph % (Auto) [place] % (Auto) Lymph # (Auto) [place] # (Auto) Seg Neutrophils % Seg Neutrophils # VBG pH Sodium Potassium Chloride Carbon Dioxide BUN Creatinine Glucose POC Glucose 196 H Phosphorus Magnesium Alkaline Phosphatase Ammonia Total Protein Allied health notes reviewed: nursing
[2021-02-07] MEDS: AMITRIPTYLINE 25 MG TAB PO SCH (22:44)
[2021-02-07] MEDS: MIRTAZAPINE 15 MG TAB PO SCH (22:44)
[2021-02-07] MEDS: risperiDONE 1 MG TAB PO SCH (22:49)
[2021-02-07] MEDS: traZODone 100 MG TAB PO SCH (22:50)
[2021-02-07] MEDS: AMMONIUM LACTATE 12% LOTION TP SCH (22:53)
[2021-02-08] MEDS: INSULIN LISPRO 100 UNIT/ML SUB-Q SCH ×2 (07:27→10:32)
[2021-02-08] MEDS: AMMONIUM LACTATE 12% LOTION TP SCH ×2 (07:43→10:37)
[2021-02-08] MEDS ORDERED: REGADENOSON 0.4 MG/5 ML INJ IV ONE ×2 (07:44→08:28)
[2021-02-08] MEDS: FLUTICASONE PROPIONATE NASAL SPRAY 16 GM NS SCH (10:32)
[2021-02-08] MEDS: INSULIN NPH/REGULAR 70/30 INJ SUB-Q SCH (10:32)
[2021-02-08] MEDS: HEPARIN 5,000 UNIT/1 ML VIAL SUB-Q SCH (10:33)
[2021-02-08] MEDS: ESCITALOPRAM 10 MG TAB PO SCH (10:33)
[2021-02-08] MEDS: amLODIPine 10 MG TAB PO SCH (10:33)
[2021-02-08] MEDS: risperiDONE 0.25 MG TAB PO SCH (10:34)
[2021-02-08] MEDS: GABAPENTIN 400 MG CAP PO SCH ×2 (10:34→14:03)
[2021-02-08] MEDS: CETIRIZINE 10 MG TAB PO SCH (10:34)
[2021-02-08] MEDS: PANTOPRAZOLE 20 MG TAB PO SCH (10:34)
[2021-02-08] MEDS: LISINOPRIL 40 MG TAB PO SCH (10:34)
[2021-02-08] MEDS: FOLIC ACID 1 MG TAB PO SCH (10:34)
[2021-02-08] MEDS: cloNIDine 0.2 MG TAB PO SCH (10:34)
[2021-02-08 11:59] VITALS: BP 150/93
--- NOTE | 2021-02-08 12:08 | Discharge Summary ---
Providers - Providers Date of Admission: 02/02/21 20:07 Attending physician: MICHAEL ANAYA MD 02/02/21 20:16 Consult to Physician [CONS] Routine Comment: Consulting Provider: ELISHA RICK Physician Instructions: Reason For Exam: dka 02/04/21 16:12 Consult to Physician [CONS] Routine Comment: Consulting Provider: AUSTIN CHRISTIAN Physician Instructions: Reason For Exam: DEPRESSION 02/06/21 07:35 Consult to Physician [CONS] Routine Comment: Consulting Provider: MASHA MIRELES Physician Instructions: Reason For Exam: Arrythmia- Pauses noted on tele Primary care physician: [employer] Hospitalization Reason for admission: DKA Condition: Serious Hospital course: 45 YO Male with HTN, DM, HLD, Depression, ETOH Dependence presents to ED for evaluation. Patient is confused with diminished cognition at the time of my evaluation and is unable to provide detailed history. Patient history provided by EMS staff as well as ED staff. Patient staff reports that patient was found to have confusion today as per family members. EMS was notified and upon arrival the patient was found to be in distress with an elevated blood glucose of 528. The patient was subsequently transported to [facility] for further care and evaluation of the aforementioned symptoms. The patient was seen and evaluated in the emergency department. The patient was found to have DKA, metabolic acidosis, DREW with ATN as well as metabolic encephalopathy. The patient was admitted to ICU and initiated on DKA protocol. No further history is obtainable. The patient has diminished cognition at this time my evaluation but has a positive gag reflex and is able to protect his airway without difficulty. No medication listed at time of admission for reconciliation. Prior admission on 01/27/2020 reviewed. 02/03: Gap is almost close, continue current management, continue management for ETOH Withdrawal. Updating family. 02/04: Continue supportive care, will give a bolus of fluid, give additional potassium supplementation, continue insulin drip hopefully closes soon. Aspiration precaution. 02/05: Gap closed, transition to insulin sliding scale and AM/PM dose, awaiting yakov woodruff. still drowsy but much improved compared to yesterday. Replace K. 02/06: Noted to have ventricular pause for 2 seconds no other incident EKG obta ined. Echocardiogram ordered. Cardiology consulted. Still awaiting psych evaluation anticipate discharge in 24 hours if no further cardiac work-up. 02/07: Cardiology input noted. Patient will obtain echocardiogram and a stress test in a.m. ventricular pause noted prior likely secondary to physiologic condition. Continue current management. Anticipate discharge in a.m. 02/08: Patient underwent stress test this morning and was read as normal with no evidence of ischemic injury. Extensive counseling provided to the patient also recommended outpatient sleep study to evaluate for obstructive sleep apnea. Extensive counseling was given to the patient preventive medicine counseling on management of diabetes and diabetic associated disease. Also counseling for more than 30 minutes on alcohol use disorder management. (1) DKA (diabetic ketoacidoses) Current Visit: Yes Status: Acute Qualifiers: Diabetes mellitus type: type 1 Plan to address problem: DKA protocol: Patient admitted to ICU and initiated on DKA protocol. Insulin drip, IV fluid resuscitation therapy, monitor urine output every shift, serial BMP, monitor anion gap, potassium repletion as per protocol. (2) Metabolic acidosis Current Visit: Yes Status: Acute Plan to address problem: IV fluid resuscitation therapy, serial lactic acid level, supportive care. (3) Metabolic encephalopathy Current Visit: Yes Status: Acute Plan to address problem: CT head-negative, neuro check, seizure precautions, supportive care. Treat DKA. (4) Alcohol dependence with mild withdrawal Current Visit: Yes Status: Acute Plan to address problem: Thiamine, folic acid, multivitamin, CIWA protocol, banana bag. (5) Hypokalemia Replace (6) Hyponatremia (7) DREW with ATN with vasomotor nephropathyresolved Disposition: - TO HOME OR SELFCARE Final Discharge Diagnosis (Prints w/discharge instructions): DKA Time spent for discharge: 35 minutes Core Measure Documentation - Palliative Care Palliative Care/ Comfort Measures: Not Applicable - Core Measures Any of the following diagnoses?: none Exam - Physical Exam Narrative exam: GENERAL: The patient is well-developed well-nourished. HENT: Normocephalic. Atraumatic. Patient has moist mucous membranes. EYES: Extraocular motions are intact. NECK: Supple. Trachea is midline. CHEST/LUNGS: Clear to auscultation. HEART/CARDIOVASCULAR: Regular. There is no tachycardia. There is no murmur. ABDOMEN: Abdomen is soft, nontender. Patient has normal bowel sounds. There is no abdominal distention. SKIN: Skin is warm and dry. NEURO: Awake alert oriented no focal abnormalities noted. Follows commands. Speech is normal. MUSCULOSKELETAL: There is no tenderness or deformity. There is no limitation range of motion. - Constitutional Vitals: Temp Pulse Resp BP Pulse Ox 98.6 F 105 H 18 150/93 97 02/08/21 11:26 02/08/21 11:26 02/08/21 11:26 02/08/21 11:26 02/08/21 11:26 Plan Activity: advance as tolerated, fall precautions Diet: low fat Special Instructions: record daily weights Follow up with: PRIMARY CARE, [Primary Care Provider] - 3-5 Days DEBRA KIM MD [Staff Physician] - 7 Days KAELYN HENSON MD [Staff Physician] - 7 Days AUSTIN CHRISTIAN MD [Staff Physician] - 7 Days Prescriptions: AtorvaSTATin 10 mg PO QHS #30 tablet Insulin NPH Hum/Reg Insulin Hm [Humulin 70-30 Vial] 50 unit SQ QHS #10 units Folic Acid [Folvite] 1 mg PO QDAY #30 tablet Insulin NPH Hum/Reg Insulin Hm [HumuLIN 70-30 Vial] 40 unit SQ QAM #10 units
--- NOTE | 2021-02-08 12:22 | Nuclear Medicine Report ---
APPROVED REPORT Exam: Nuclear Stress Test Indication: Chest pain BMI: 0 Stress Test Details Stress Test: Pharmacologic stress testing performed using 0.4 mg of regadenoson per 5 mL given IV over 10 seconds. HR Resting HR: 78 bpmMax Heart Rate (APMHR): 173 bpm Max HR Achieved: 118 bpmTarget HR (85% APMHR): 147 bpm % of APMHR: 68 Recovery HR: 100 bpm HR response to stress: Normal HR response to stress BP Resting BP: 142/85 mmHg Max BP: 176/104 mmHg Recovery BP: 151/92 mmHg BP response to stress: Normal blood pressure response to stress. ECG Resting ECG: Sinus Rhythm Stress ECG: Sinus Tachycardia Clinical Reason for Termination: Completed protocol NM EXAM: Myocardial Perfusion REST/STRESS Imaging Protocol: Rest Tc-99m/Stress Tc-99m 1 day Resting Data Rest SPECT myocardial perfusion imaging was performed in supine position 45 minutes following the intravenous injection of 10 mCi of Tc-99m Myoview. Time of rest injection: 0718 Pharmacologic Stress Pharmacologic stress test was performed by injecting Regadenoson 0.4 mg IV push followed by the intravenous injection of 28 mCi of Tc-99m Myoview. Time of stress injection: 0915 Gated Stress SPECT was performed 30 minutes after stress injection. The images were gated to evaluate regional wall motion and calculate left ventricular ejection fraction. Study Quality Study: excellent Lung Uptake: Normal Study Data TID = 0.95. Perfusion Wall Motion The rest and stress images show normal left ventricular wall motion. Nuclear Conclusion ECG Findings: negative for ischemia Clinical Findings: negative for ischemia Nuclear Findings: negative for ischemia Exercise Capacity: not assessed Left Ventricular Function: normal Normal study. No scintigraphic evidence for myocardial ischemia or scar. Normal left ventricular size and function with no regional wall motion abnormalities.
--- NOTE | 2021-02-09 10:22 | Treadmill Report ---
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
--- NOTE | 2021-02-09 17:20 | Electrocardiograph Report ---
[facility] Test Date: 2021-02-02 Test Time: 22:34:31 Pat Name: MEL PLEITEZ Department: Room: A472 Gender: M Senior Communications Specialist: JANE : 1975 Requested By: JUAN CARLOS MCGARRY Order Number: [id number] Reading MD: Ani Lacey Measurements Intervals [place] Rate: 101 P: 43 WI: 154 QRS: 19 QRSD: 104 T: 2 QT: 398 QTc: 517 Interpretive Statements Sinus tachycardia Prolonged QT interval No previous ECG available for comparison Electronically Signed On 02-09-2021 17:20:37 EDT by Ani Lacey
--- NOTE | 2021-02-09 17:42 | Electrocardiograph Report ---
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
== END 2021-02-08 14:04 | disposition home or self-care (01) | DRG 637 ==
LOC: ED 17:47 → CC1 20:07 → 4A 02-05 15:09
PROVIDERS: ADMIT Internal Medicine; ATTEND Internal Medicine
DX: E10.10 Type 1 diabetes mellitus with ketoacidosis without coma (principal); N17.0 Acute kidney failure with tubular necrosis; G92 Toxic encephalopathy; Z20.822 Contact with and (suspected) exposure to COVID-19; E87.1 Hypo-osmolality and hyponatremia; G89.29 Other chronic pain; M54.9 Dorsalgia, unspecified; D72.829 Elevated white blood cell count, unspecified; E87.6 Hypokalemia; E78.5 Hyperlipidemia, unspecified; F32.9 Major depressive disorder, single episode, unspecified; F10.20 Alcohol dependence, uncomplicated; E66.9 Obesity, unspecified; I10 Essential (primary) hypertension; Z79.899 Other long term (current) drug therapy; Z79.891 Long term (current) use of opiate analgesic; Z79.01 Long term (current) use of anticoagulants; Z79.4 Long term (current) use of insulin; Z83.3 Family history of diabetes mellitus; Z82.49 Family history of ischemic heart disease and other diseases of the circulatory system
CPT/HCPCS: 36415; 70450; 71045; 78452; 80048; 80053; 80061; 80307; 80320; 81001; 82010; 82140; 82805; 82962; 83735; 84100; 84145; 84484; 85025; 85027; 93005; 93017; 93306; G0378; A9502; G0480; J0360; J1644; J1815; J2060; J2250; J2785; J3411; J3480; J7030; U0003